=== PATIENT | male | born 1930 | race Caucasian/White ===

== ENCOUNTER 2017-08-01 22:54 | Inpatient (IN) ==
[2017-08-01] MEDS ORDERED: 0.9 % Sodium Chloride 1,000 ML IVC ONE (23:56)
--- NOTE | 2017-08-02 00:07 | Emergency Department Note ---
Disposition Clinical Impression: Atrial fibrillation with RVR, Thrombocytopenia Fever Qualifiers: Fever type: unspecified Qualified Code(s): R50.9 - Fever, unspecified UTI (urinary tract infection) Qualifiers: Urinary tract infection type: site unspecified Hematuria presence: with hematuria Qualified Code(s): N39.0 - Urinary tract infection, site not specified ; R31.9 - Hematuria, unspecified; R31.9 - Hematuria, unspecified Disposition: Admitted As Inpatient Condition: Fair Referrals: Miguel Ayala MD [Primary Care Provider] - Forms: ED Satisfaction Letter Time of Disposition: 04:24 Fever HPI - General Chief Complaint: ED Fever Stated Complaint: Fever Time Seen by Provider: 08/01/17 23:44 Nursing Notes Reviewed: Yes Vital Signs Reviewed: Yes - History of Present Illness HPI Narrative: Patient states 87-year-old male complains of onset of fever and weakness today. Patient has a recent history of bladder cancer and surgery. Patient's had 3 admissions to hospital at [facility] in [facility]. Patient spends the winter in [place]. Patient had a UTI and hematuria which led to a bladder scope was identified a cancer and bladder. Patient was then admitted for VRE infection of the urine. Patient's daughter at bedside states the patient had a fever although 101 within the past 2 hours. She also states patient complained of weakness. - Related Data Home Medications Medication Instructions Recorded Confirmed Aspirin [Lo-Dose Aspirin EC] 81 mg PO DAILY 08/02/17 08/02/17 Calcium Carbonate [Calcium] 1,200 mg PO DAILY 08/02/17 08/02/17 Diltiazem HCl [Diltiazem ER] 120 mg PO DAILY 08/02/17 08/02/17 Finasteride [Proscar] 5 mg PO DAILY 08/02/17 08/02/17 Lutein Extract/Zeaxanthin Ext 1 cap PO DAILY 08/02/17 08/02/17 [Lutein 15 mg Softgel] Rivaroxaban [Xarelto] 20 mg PO DAILY 08/02/17 08/02/17 Allergies Allergy/AdvReac Type Severity Reaction Status Date / Time No Known Allergies Allergy Verified 08/01/17 23:21 All systems ED: reviewed and negative except as stated. Review of Systems: As Per HPI Constitutional: Reports: fever, weakness Fever PMH - Past Medical History Medical history: Reports: atrial fibrillation, cancer, hypertension, kidney stones - Social History Smoking Status: Former smoker Drug use: Reports: none, unknown Physical Exam Vital Signs Temperature 99.0 F 08/01/17 23:14 Pulse Rate 130 08/01/17 23:14 Respiratory Rate 16 08/01/17 23:14 Blood Pressure 122/79 08/01/17 23:14 O2 Sat by Pulse Oximetry 96 08/01/17 23:14 Temperature 99.0 F 08/01/17 23:14 Pulse Rate 130 08/01/17 23:14 Respiratory Rate 16 08/01/17 23:14 Blood Pressure 122/79 08/01/17 23:14 O2 Sat by Pulse Oximetry 96 08/01/17 23:14 Oxygen Delivery Oxygen Delivery Room Air CONSTITUTIONAL: Well-appearing; well-nourished; A&O X 3, in no apparent distress. Patient is nontoxic-appearing. Temperature 99.0 presently. Patient is tachycardic at 1 30 bpm. On the monitor patient's pulses accelerating to 140s. HEAD: Normocephalic; atraumatic EYES: PERRL, no scleral icterus NOSE: The nose is normal in appearance without rhinorrhea NECK: No JVD or distended neck veins RESP: Normal chest excursion with respiration; breath sounds clear and equal bilaterally; no wheezes, rhonchi, or rales CARD: Iregular rhythm, without murmurs, rub or gallop ABD: Non-distended; non-tender, soft, without rigidity, rebound or guarding,no pulsatile mass CHEST: No pain with palpation SKIN: Normal for age and race; warm and dry without diaphoresis ; no apparent lesions EXTREMITIES: Pulses are 2 plus and equal times 4 extremities, no peripheral edema or calf muscle pain - General General appearance: alert Course - Reevaluation(s) Reevaluation #1: X-ray completed Time: 00:12 Reevaluation #2: Patient has sepsis secondary to urosepsis. Patient has used in his urine as well as bacteria. Patient started on levofloxacin, Rocephin, fluconazole all IV. Patient did not become rate controlled after IV normal saline bolus. IV Cardizem bolus 15 mg followed by IV Cardizem drip 5 mg per hour. Time: 00:41 Reevaluation #3: Patient's currently rate controlled under 100bpm Time: 04:14 - Consultations Consultation #1: Dr. Albarran the hospitalist as accepted patient for admission Time: 04:16 Vital Signs Temperature 99.0 F 08/01/17 23:14 Pulse Rate 130 08/01/17 23:14 Respiratory Rate 16 08/01/17 23:14 Blood Pressure 122/79 08/01/17 23:14 O2 Sat by Pulse Oximetry 96 08/01/17 23:14 Temperature 99.0 F 08/01/17 23:14 Pulse Rate 121 08/02/17 03:00 Respiratory Rate 18 08/02/17 03:00 Blood Pressure 124/85 08/02/17 03:00 O2 Sat by Pulse Oximetry 97 08/02/17 03:00 Oxygen Delivery Oxygen Delivery Room Air Fever - MDM Narrative Medical decision making narrative: Patient presents with A. fib RVR and recent history of fever of 101. Which raises concern for possible sepsis given patient's recent history of infections and bladder cancer. Patient's labs show the patient has an elevated WBC of 11.5, patient is anemic with a hemoglobin of 8.4 and hematocrit of 26.3. Patient is thrombocytopenic platelet count 87. Lactic acidemia 2.9, elevated troponin 0.4 most likely from A. fib RVR. Patient currently has no chest pain and otherwise looks Healthy. Patient is on several toe for his A. fib. Chest x-ray was negative for any cardiopulmonary abnormalities. Urinalysis positive for bacteria and yeast make patient positive for urosepsis. Appropriate antibiotics per sepsis protocol ordered 750 mg levofloxacin, 2 g of Rocephin IV, Diflucan ordered as well. Patient's A. fib is been placed under rate control with total of 25 mg bolus of diltiazem followed by a 5 mg per hour drip. Patient is receiving IV normal saline and is currently received 2 L so far, patient will receive a third liter. Patient understands and agrees to treatment plan for admission. Dr. Albarran the hospitalist as accepted patient for admission - Lab Data Lab results reviewed: Yes I reviewed the patient's lab results. Lab results narrative: Short CBC 08/02/17 Range/Units 00:27 WBC 11.5 H D (4.3-11.1) K/mcL Hgb 8.4 L (12.9-16.9) g/dL Hct 26.3 L (37.5-50.1) % Plt Count 87 L (140-400) K/mcL Neutrophils # 9.0 H (1.6-8.9) K/mcL BMP 08/02/17 Range/Units 00:27 Sodium 138 (136-145) mEq/L Potassium 3.9 (3.5-5.1) mEq/L Chloride 107 (98-107) mEq/L Carbon Dioxide 22 L (23-29) mEq/L BUN 18 (8-23) mg/dL Creatinine 0.96 (0.70-1.30) mg/dL Glucose 119 H (70-105) mg/dL Calcium 9.0 (8.6-10.3) mg/dL Cardiac Enzymes 08/02/17 Range/Units 00:27 Troponin I 0.04 H* (< 0.04) ng/mL Urine 08/02/17 Range/Units 01:02 Urine Color Yellow (Yellow) Urine Clarity Cloudy A (Clear) Urine pH 5.5 (5.0-8.0) pH Units Ur Specific [place] 1.024 (1.010-1.025) Urine Protein 30 H (Neg-Trace) mg/dL Urine Glucose (UA) Normal (Normal) mg/dL Result diagrams: 08/02/17 00:27 08/02/17 00:27 Lab Results 08/02/17 08/02/17 08/02/17 Range/Units 00:27 00:27 00:27 WBC 11.5 H D (4.3-11.1) K/mcL RBC 2.98 L (4.19-5.50) M/mcL Hgb 8.4 L (12.9-16.9) g/dL Hct 26.3 L (37.5-50.1) % MCV 88.3 (83.0-100.0) fL MCH 28.2 (28.0-33.3) pg MCHC 31.9 (31.6-35.5) g/dL RDW 15.4 H (11.5-14.5) % Plt Count 87 L (140-400) K/mcL MPV 11.0 (9.4-12.4) fL Immature Gran % 0.5 (0-4) % Seg Neutrophils % 78.6 % Lymphocytes % 9.0 % Monocytes % 11.1 % Eosinophils % 0.5 % Basophils % 0.3 % Neutrophils # 9.0 H (1.6-8.9) K/mcL Lymphocytes # 1.0 (0.6-4.6) K/mcL Monocytes # 1.3 (0.0-1.3) K/mcL Eosinophils # 0.1 (0.0-0.6) K/mcL Basophils # 0.0 (0.0-0.2) K/mcL Nucleated RBCs/100 WBC 0.7 H (0) /100 WBC Immature Plt Fraction 4.7 (1.1-6.1) % Sodium 138 (136-145) mEq/L Potassium 3.9 (3.5-5.1) mEq/L Chloride 107 (98-107) mEq/L Carbon Dioxide 22 L (23-29) mEq/L BUN 18 (8-23) mg/dL Creatinine 0.96 (0.70-1.30) mg/dL Est GFR ( Amer) > 60 (> 60) Est GFR (Non-Af Amer) > 60 (> 60) BUN/Creatinine Ratio 19 (6-26) Glucose 119 H (70-105) mg/dL Calculated Osmolality 289 (280-300) Lactic Acid 2.9 H (0.5-2.2) mmol/L Calcium 9.0 (8.6-10.3) mg/dL Troponin I 0.04 H* (< 0.04) ng/mL Urine Color (Yellow) Urine Clarity (Clear) Urine pH (5.0-8.0) pH Units Ur Specific [place] (1.010-1.025) Urine Protein (Neg-Trace) mg/dL Urine Glucose (UA) (Normal) mg/dL Urine Ketones (Negative) mg/dL Urine Blood (Negative) Urine Nitrite (Negative) Urine Bilirubin (Negative) Urine Urobilinogen (Normal) mg/dL Ur Leukocyte Esterase (Negative) Urine Microscopic RBC (0-3) per hpf Urine Microscopic WBC (0-3) per hpf Ur Squamous Epith Cells (None-Few) per lpf Urine Bacteria (None-Few) per hpf Hyaline Casts (None-Few) per lpf Urine Yeast (None Seen) per hpf 08/02/17 Range/Units 01:02 WBC (4.3-11.1) K/mcL RBC (4.19-5.50) M/mcL Hgb (12.9-16.9) g/dL Hct (37.5-50.1) % MCV (83.0-100.0) fL MCH (28.0-33.3) pg MCHC (31.6-35.5) g/dL RDW (11.5-14.5) % Plt Count (140-400) K/mcL MPV (9.4-12.4) fL Immature Gran % (0-4) % Seg Neutrophils % % Lymphocytes % % Monocytes % % Eosinophils % % Basophils % % Neutrophils # (1.6-8.9) K/mcL Lymphocytes # (0.6-4.6) K/mcL Monocytes # (0.0-1.3) K/mcL Eosinophils # (0.0-0.6) K/mcL Basophils # (0.0-0.2) K/mcL Nucleated RBCs/100 WBC (0) /100 WBC Immature Plt Fraction (1.1-6.1) % Sodium (136-145) mEq/L Potassium (3.5-5.1) mEq/L Chloride (98-107) mEq/L Carbon Dioxide (23-29) mEq/L BUN (8-23) mg/dL Creatinine (0.70-1.30) mg/dL Est GFR ( Amer) (> 60) Est GFR (Non-Af Amer) (> 60) BUN/Creatinine Ratio (6-26) Glucose (70-105) mg/dL Calculated Osmolality (280-300) Lactic Acid (0.5-2.2) mmol/L Calcium (8.6-10.3) mg/dL Troponin I (< 0.04) ng/mL Urine Color Yellow (Yellow) Urine Clarity Cloudy A (Clear) Urine pH 5.5 (5.0-8.0) pH Units Ur Specific [place] 1.024 (1.010-1.025) Urine Protein 30 H (Neg-Trace) mg/dL Urine Glucose (UA) Normal (Normal) mg/dL Urine Ketones Negative (Negative) mg/dL Urine Blood Trace H (Negative) Urine Nitrite Negative (Negative) Urine Bilirubin Negative (Negative) Urine Urobilinogen Normal (Normal) mg/dL Ur Leukocyte Esterase Moderate H (Negative) Urine Microscopic RBC 3-5 H (0-3) per hpf Urine Microscopic WBC 50-100 H (0-3) per hpf Ur Squamous Epith Cells Few (None-Few) per lpf Urine Bacteria Few (None-Few) per hpf Hyaline Casts None Seen (None-Few) per lpf Urine Yeast Many H (None Seen) per hpf - Radiology Data Radiology results reviewed: Yes I reviewed the patient's radiology results. Chest X-Ray 08/01/17 23:53 IMPRESSION: No acute cardiopulmonary findings within the limitations of this exam. D/ / Misael Walsh / Misael Walsh Interpreting Provider: Misael Walsh - EKG Data EKG attestation: Yes I reviewed and interpreted this EKG. EKG results narrative: EKG taken 08/02/2017 at 0001 hours shows A. fib RVR at a rate of 1 33 bpm with no acute ST elevations or depressions any leads, no purist widening or QT prolongation. When compared to previous EKG for comparison taken 01/27/2011 baseline morphology is the same
[2017-08-02 00:42] LABS: Basophils % 0.3 %; Eosinophils % 0.5 %; Mean Corpuscular Hemoglobin 28.2 pg (28.0-33.3); Red Cell Distribution Width 15.4 % (11.5-14.5)
[2017-08-02 00:44] LABS: Eosinophils # 0.1 K/mcL (0.0-0.6); Hematocrit 26.3 % (37.5-50.1); Hemoglobin 8.4 g/dL (12.9-16.9); Immature Granulocytes % 0.5 % (0-4); Immature Platelets 4.7 % (1.1-6.1); Mean Corpuscular HGB Conc 31.9 g/dL (31.6-35.5); Mean Corpuscular Volume 88.3 fL (83.0-100.0); Monocytes # 1.3 K/mcL (0.0-1.3); Monocytes % 11.1 %; Nucleated Red Blood Cells 0.7 /100 WBC (0); Platelet Count 87 K/mcL (140-400); Red Blood Count 2.98 M/mcL (4.19-5.50); Segmented Neutrophils % 78.6 %
[2017-08-02 00:59] LABS: BUN/Creatinine Ratio 19 (6-26); Blood Urea Nitrogen 18 mg/dL (8-23); Carbon Dioxide 22 mEq/L (23-29); Chloride 107 mEq/L (98-107); Glucose 119 mg/dL (70-105); Osmolality,Calculated 289 (280-300); Potassium 3.9 mEq/L (3.5-5.1); Sodium 138 mEq/L (136-145); eGFR For African Americans > 60 (> 60); eGFR For Non-African Americans > 60 (> 60)
[2017-08-02 01:03] LABS: Troponin I 0.04 ng/mL (< 0.04)
[2017-08-02 01:14] LABS: Bilirubin,Urine Negative (Negative); Blood,Urine Trace (Negative); Clarity,Urine Cloudy (Clear); Color,Urine Yellow (Yellow); Glucose,Urine (UA) Normal (Normal); Ketones,Urine Negative (Negative); Leukocyte Esterase,Urine Moderate (Negative); Nitrite,Urine Negative (Negative); PH,Urine 5.5 pH Units (5.0-8.0); Protein,Urine 30 mg/dL (Neg-Trace); Specific Gravity,Urine 1.024 (1.010-1.025); Urobilinogen,Urine Normal (Normal)
[2017-08-02 01:15] LABS: Hyaline Casts,Urine None Seen per lpf (None-Few); WBC,Urine 50-100 per hpf (0-3)
[2017-08-02 01:33] LABS: Bacteria,Urine Few per hpf (None-Few); Squamous Epithelial Cell,Urine Few per lpf (None-Few); Yeast,Urine Many per hpf (None Seen)
[2017-08-02] MEDS ORDERED: 0.9 % Sodium Chloride 1,000 ML IVC ONE (02:00)
--- NOTE | 2017-08-02 02:42 | Emergency Department Note ---
Disposition Clinical Impression: Atrial fibrillation with RVR, UTI (urinary tract infection), Thrombocytopenia Fever Qualifiers: Fever type: unspecified Qualified Code(s): R50.9 - Fever, unspecified Disposition: Admitted As Inpatient Condition: Fair General Adult HPI - General Chief complaint: ED Fever Stated complaint: Fever Time Seen by Provider: 08/01/17 23:44 - History of Present Illness Pain Scale: 4 - Related Data Home Medications Medication Instructions Recorded Confirmed Aspirin [Lo-Dose Aspirin EC] 81 mg PO DAILY 08/02/17 08/02/17 Calcium Carbonate [Calcium] 1,200 mg PO DAILY 08/02/17 08/02/17 Diltiazem HCl [Diltiazem ER] 120 mg PO DAILY 08/02/17 08/02/17 Finasteride [Proscar] 5 mg PO DAILY 08/02/17 08/02/17 Lutein Extract/Zeaxanthin Ext 1 cap PO DAILY 08/02/17 08/02/17 [Lutein 15 mg Softgel] Rivaroxaban [Xarelto] 20 mg PO DAILY 08/02/17 08/02/17 Allergies Allergy/AdvReac Type Severity Reaction Status Date / Time No Known Allergies Allergy Verified 08/01/17 23:21 Constitutional: Reports: fever, weakness Past Medical History - Past Medical History Medical history: Reports: atrial fibrillation, cancer, hypertension, kidney stones - Social History Smoking Status: Former smoker Drug use: Reports: none, unknown Physical Exam - General General appearance: alert Course Vital Signs Temperature 99.0 F 08/01/17 23:14 Pulse Rate 130 08/01/17 23:14 Respiratory Rate 16 08/01/17 23:14 Blood Pressure 122/79 08/01/17 23:14 O2 Sat by Pulse Oximetry 96 08/01/17 23:14 Temperature 99.5 F 08/02/17 05:31 Pulse Rate 107 08/02/17 05:31 Respiratory Rate 15 08/02/17 05:31 Blood Pressure 110/60 08/02/17 05:31 O2 Sat by Pulse Oximetry 97 08/02/17 05:31 Oxygen Delivery Oxygen Delivery Room Air Medical Decision Making - Lab Data Result diagrams: 08/02/17 00:27 08/02/17 00:27 Lab Results 08/02/17 08/02/17 08/02/17 Range/Units 00:27 00:27 00:27 WBC 11.5 H D (4.3-11.1) K/mcL RBC 2.98 L (4.19-5.50) M/mcL Hgb 8.4 L (12.9-16.9) g/dL Hct 26.3 L (37.5-50.1) % MCV 88.3 (83.0-100.0) fL MCH 28.2 (28.0-33.3) pg MCHC 31.9 (31.6-35.5) g/dL RDW 15.4 H (11.5-14.5) % Plt Count 87 L (140-400) K/mcL MPV 11.0 (9.4-12.4) fL Immature Gran % 0.5 (0-4) % Seg Neutrophils % 78.6 % Lymphocytes % 9.0 % Monocytes % 11.1 % Eosinophils % 0.5 % Basophils % 0.3 % Neutrophils # 9.0 H (1.6-8.9) K/mcL Lymphocytes # 1.0 (0.6-4.6) K/mcL Monocytes # 1.3 (0.0-1.3) K/mcL Eosinophils # 0.1 (0.0-0.6) K/mcL Basophils # 0.0 (0.0-0.2) K/mcL Nucleated RBCs/100 WBC 0.7 H (0) /100 WBC Immature Plt Fraction 4.7 (1.1-6.1) % Sodium 138 (136-145) mEq/L Potassium 3.9 (3.5-5.1) mEq/L Chloride 107 (98-107) mEq/L Carbon Dioxide 22 L (23-29) mEq/L BUN 18 (8-23) mg/dL Creatinine 0.96 (0.70-1.30) mg/dL Est GFR ( Amer) > 60 (> 60) Est GFR (Non-Af Amer) > 60 (> 60) BUN/Creatinine Ratio 19 (6-26) Glucose 119 H (70-105) mg/dL Calculated Osmolality 289 (280-300) Lactic Acid 2.9 H (0.5-2.2) mmol/L Calcium 9.0 (8.6-10.3) mg/dL Troponin I 0.04 H* (< 0.04) ng/mL Urine Color (Yellow) Urine Clarity (Clear) Urine pH (5.0-8.0) pH Units Ur Specific [place] (1.010-1.025) Urine Protein (Neg-Trace) mg/dL Urine Glucose (UA) (Normal) mg/dL Urine Ketones (Negative) mg/dL Urine Blood (Negative) Urine Nitrite (Negative) Urine Bilirubin (Negative) Urine Urobilinogen (Normal) mg/dL Ur Leukocyte Esterase (Negative) Urine Microscopic RBC (0-3) per hpf Urine Microscopic WBC (0-3) per hpf Ur Squamous Epith Cells (None-Few) per lpf Urine Bacteria (None-Few) per hpf Hyaline Casts (None-Few) per lpf Urine Yeast (None Seen) per hpf 08/02/17 08/02/17 08/02/17 Range/Units 01:02 04:33 04:33 WBC (4.3-11.1) K/mcL RBC (4.19-5.50) M/mcL Hgb (12.9-16.9) g/dL Hct (37.5-50.1) % MCV (83.0-100.0) fL MCH (28.0-33.3) pg MCHC (31.6-35.5) g/dL RDW (11.5-14.5) % Plt Count (140-400) K/mcL MPV (9.4-12.4) fL Immature Gran % (0-4) % Seg Neutrophils % % Lymphocytes % % Monocytes % % Eosinophils % % Basophils % % Neutrophils # (1.6-8.9) K/mcL Lymphocytes # (0.6-4.6) K/mcL Monocytes # (0.0-1.3) K/mcL Eosinophils # (0.0-0.6) K/mcL Basophils # (0.0-0.2) K/mcL Nucleated RBCs/100 WBC (0) /100 WBC Immature Plt Fraction (1.1-6.1) % Sodium (136-145) mEq/L Potassium (3.5-5.1) mEq/L Chloride (98-107) mEq/L Carbon Dioxide (23-29) mEq/L BUN (8-23) mg/dL Creatinine (0.70-1.30) mg/dL Est GFR ( Amer) (> 60) Est GFR (Non-Af Amer) (> 60) BUN/Creatinine Ratio (6-26) Glucose (70-105) mg/dL Calculated Osmolality (280-300) Lactic Acid 2.1 (0.5-2.2) mmol/L Calcium (8.6-10.3) mg/dL Troponin I 0.03 (< 0.04) ng/mL Urine Color Yellow (Yellow) Urine Clarity Cloudy A (Clear) Urine pH 5.5 (5.0-8.0) pH Units Ur Specific [place] 1.024 (1.010-1.025) Urine Protein 30 H (Neg-Trace) mg/dL Urine Glucose (UA) Normal (Normal) mg/dL Urine Ketones Negative (Negative) mg/dL Urine Blood Trace H (Negative) Urine Nitrite Negative (Negative) Urine Bilirubin Negative (Negative) Urine Urobilinogen Normal (Normal) mg/dL Ur Leukocyte Esterase Moderate H (Negative) Urine Microscopic RBC 3-5 H (0-3) per hpf Urine Microscopic WBC 50-100 H (0-3) per hpf Ur Squamous Epith Cells Few (None-Few) per lpf Urine Bacteria Few (None-Few) per hpf Hyaline Casts None Seen (None-Few) per lpf Urine Yeast Many H (None Seen) per hpf Critical Care Time Critical Care Time: Yes Total Critical Care Time: 35 Attestation: Critical care performed: Time is exclusive of separately billable procedures. Time includes: direct patient care, patient reassessment, coordination of patient care, interpretation of data (laboratory data, radiology data, and respiratory data), review of patient's medical records, medical consultation and documentation of patient care. Procedures included in critical care time: Procedures excluded from critical care time: Attestation Statement - Attestation Attestation: I examined this patient and my medical decision-making was reviewed with the Resident Physician. I agree with the documented findings, disposition and treatment plan as described except to the extent set forth below. Patient presents to the using a fever. Patient recently seen and admitted for UTI. He just finished: Nasal lid. Fever was 101 tonight home. He is 99 here. On examination he is in no acute distress without complaint. Abdomen soft lungs clear. Plan. Patient again shows a UTI. Positive freeze. We will start him on Diflucan. Patient he sepsis criteria even though he is in A. fib with RVR causing his tachycardia. His white count is 11. His lactic acid is 2.9. Patient is started on broad-spectrum antibiotic and admitted to medicine.
[2017-08-02] MEDS: Fluconazole 400 MG/200 ML 400 MG/200 ML BAG IVPB SCH ×2 (02:58→05:01)
[2017-08-02] MEDS ORDERED: Levofloxacin 750 MG/150 ML 750 MG/150 ML BAG IVPB SCH (03:00)
[2017-08-02] MEDS ORDERED: cefTRIAXone 2,000 MG in Water for inj. (sterile) 20 ML 20 ML IVP SCH (03:00)
[2017-08-02] MEDS ORDERED: *HR* HYDROcodone/Acet 5/325 mg TABLET PO PRN (04:15)
[2017-08-02] MEDS ORDERED: Ondansetron 4 MG/2 ML VIAL IVP PRN (04:15)
[2017-08-02] MEDS ORDERED: *HR* Promethazine 25 MG/ML VIAL IVP PRN (04:15)
[2017-08-02] MEDS ORDERED: Naloxone 0.4 MG/ML INJ IVP PRN (04:15)
[2017-08-02] MEDS: 0.9 % Sodium Chloride 1,000 ML IVC SCH ×2 (05:37→14:44)
--- NOTE | 2017-08-02 06:24 | Internal Med History&Physical ---
Date of Encounter: 08/02/17 Time of Encounter: 05:00 Internal Medicine - H&P: HPI Chief complaint: Fever Admitted From: Emergency Dept Plans for Post Hospital Care: Home History of present illness: Mr. Fan is a 87 year old male with known PMH of Chronic Afib on Xarelto for anticoag, HTN, HLD and Renal calculi pt who recently diagnosed with bladder tumor possible cancer s/p tumor resection done in May 2017 @ [place], [place] later who developed post hemorrhagic anemia and sepsis with UTI with MRSA. Pt was discharged him on Zyvox abx for 10 days which he finished the course 3-4 days ago. Now he was brought into ER by family c/o he started having fever, chills and palpitations. He happened to in A fib with RVR. His T max at home 101. He denied any CP / SOB. He is alert, awake and O x 3. Talked to pt's at bed side got all the history what happened at [place], [place]. Apparently pt was hospitalized there 3 times in last 2 months. Past Med Surg Social Fam HX - Past Medical History Medical history: atrial fibrillation, cancer, hypertension, kidney stones - Past Surgical History Surgical History: appendectomy, cholecystectomy, pacemaker - Social History Smoking Status: Former smoker Alcohol use: none Drug use: none - Family History Father Living Status: Hx Family Cancer: Yes (Lung Ca.) Internal Medicine - H&P: Meds Aspirin [Lo-Dose Aspirin EC] 81 mg PO DAILY 08/02/17 [History] Calcium Carbonate [Calcium] 1,200 mg PO DAILY 08/02/17 [History] Diltiazem HCl [Diltiazem ER] 120 mg PO DAILY 08/02/17 [History] Finasteride [Proscar] 5 mg PO DAILY 08/02/17 [History] Lutein Extract/Zeaxanthin Ext [Lutein 15 mg Softgel] 1 cap PO DAILY 08/02/17 [ History] Rivaroxaban [Xarelto] 20 mg PO DAILY 08/02/17 [History] 3 Allergy/AdvReac Type Severity Reaction Status Date / Time No Known Allergies Allergy Verified 08/01/17 23:21 All Systems PM: A 10-system review of systems was performed and is negative for pertinent findings except as documented above in the HPI. Review of systems: All the systems are reviewed everything is benign except the systems and symptoms I mentioned in the history of present illness - Constitutional Vitals: Temp Pulse Resp BP Pulse Ox 99.5 F 107 15 110/60 97 08/02/17 05:31 08/02/17 05:31 08/02/17 05:31 08/02/17 05:31 08/02/17 05:31 General appearance: Present: cooperative, A&O X 3, no acute distress, answers questions appropriately - Head Head exam: Present: atraumatic, normal inspection - Neck Neck exam general surgery: Present: supple - Respiratory Respiratory exam: Present: decreased breath sounds. Absent: rales, respiratory distress, rhonchi, wheezes - Cardiovascular Cardiovascular exam: Present: irregular rhythm, +S1, +S2, tachycardia. Absent: systolic murmur - GI/Abdominal GI/Abdominal exam: Present: normal bowel sounds, soft. Absent: rebound, rigid, tenderness - Extremities Exam Extremities exam: Absent: calf tenderness, pedal edema, tenderness - Back Exam Back exam: Absent: CVA tenderness (L), CVA tenderness (R) - Neurological Exam Neurological exam: Present: alert, oriented X3 - Psychiatric Psychiatric exam: Present: normal affect, normal mood - Skin Skin exam: Absent: rash Internal Med - H&P Results - Labs CBC & Chem 7: 08/02/17 00:27 08/02/17 00:27 - Assessment and plan (1) Sepsis Current Visit: Yes Status: Acute Assessment and plan: Admit the pt into Tele He does meet sepsis cirteria with elevated LA, WBC , Tachycardia and source of inf as UTI started on empirical abx Rocephin + Vancomycin since he does have MRSA UTI recently Blood cx drawn in the ER IV hydration Qualifiers: Qualified Code(s): A41.9 - Sepsis, unspecified organism (2) UTI (urinary tract infection) Current Visit: Yes Status: Acute Assessment and plan: UA - showed few bacteria, yeast already give Fluconazole 400mg in the ER cont Rocephin + vancomcyin will give micafungin Qualifiers: Urinary tract infection type: site unspecified Hematuria presence: with hematuria Qualified Code(s): N39.0 - Urinary tract infection, site not specified; R31.9 - Hematuria, unspecified; R31.9 - Hematuria, unspecified (3) Atrial fibrillation with RVR Current Visit: Yes Status: Acute Assessment and plan: Due to Sepsis cont IV hydration started on Cardizem gtt.. try to wean him off the Cardizem gtt on Xarleto for anti coag (4) MRSA (methicillin resistant Staphylococcus aureus) infection Current Visit: Yes Status: Acute (5) HTN (hypertension) Current Visit: Yes Status: Acute Assessment and plan: stable with home meds Qualifiers: Hypertension type: essential hypertension Qualified Code(s): I10 - Essential (primary) hypertension (6) Bladder cancer Current Visit: Yes Status: Acute Assessment and plan: Recently diagnosed in [place] s/p bladder tumor resection will consult our heme Onc in AM , since pt would like to establish care with our [facility] here Qualifiers: Bladder location: unspecified site Qualified Code(s): C67.9 - Malignant neoplasm of bladder, unspecified (7) Thrombocytopenia Current Visit: Yes Status: Acute Assessment and plan: Due to sepsis + bladder cancer cont close monitoring - Time Spent With Patient Total time spent is greater than 50% in coordination of care (as documented) at patient's floor/unit and/or counseling patient:
[2017-08-02] MEDS: Finasteride 5 MG TABLET PO SCH (08:27)
[2017-08-02] MEDS: Aspirin Enteric Coated 81 MG Tablet PO SCH (08:27)
[2017-08-02] MEDS: LUTEIN PO SCH (08:54)
[2017-08-02] MEDS ORDERED: *HR* Rivaroxaban 10 MG TABLET PO SCH (09:00)
[2017-08-02] MEDS ORDERED: Diltiazem CD (24hr) 120 MG CAPSULE PO SCH (09:00)
--- NOTE | 2017-08-02 12:23 | Event Note ---
Date of Encounter: 08/02/17 Time of Encounter: 10:25 Patient is feeling better at this time. Mild abdominal discomfort. Passing flatus. Has not had a bowel movement yet. NG tube connected to low intermittent suction draining bilious fluid.
--- NOTE | 2017-08-02 12:29 | Event Note ---
Date of Encounter: 08/02/17 Time of Encounter: 10:40 Patient is feeling better at this time. Denies any dizziness or lightheadedness. No abdominal pain. No fever reported. Concerned that he did not receive Xarelto last night. Heart rate is improving. Denies any palpitations. We will wean down Cardizem drip. Transition to oral Cardizem. Placed on Xarelto. Continue current antibiotics. Cultures are negative. Continue Diflucan for yeast presenting urine with underlying bladder cancer.
[2017-08-02 13:44] LABS: Acinetobacter baumannii by PCR Not Detected (Not Detect); Candida albicans by PCR Not Detected (Not Detect); Candida glabrata by PCR Not Detected (Not Detect); Candida krusei by PCR Not Detected (Not Detect); Candida parapsilosis by PCR Not Detected (Not Detect); Candida tropicalis by PCR Not Detected (Not Detect); Enterococcus by PCR ***DETECTED*** (Not Detect); Escherichia coli by PCR Not Detected (Not Detect); Klebsiella oxytoca by PCR Not Detected (Not Detect); Klebsiella pneumoniae by PCR Not Detected (Not Detect); Pseudomonas aeruginosa by PCR Not Detected (Not Detect); Serratia marcescens by PCR Not Detected (Not Detect); Staphylococcus aureus by PCR Not Detected (Not Detect); Streptococcus agalactiae(B)PCR Not Detected (Not Detect); Streptococcus by PCR Not Detected (Not Detect); Streptococcus pneumoniae PCR Not Detected (Not Detect); Streptococcus pyogenes (A) PCR Not Detected (Not Detect); vanA/B Vancomycin-Resist Genes Not Detected (Not Detect)
[2017-08-03] MEDS ORDERED: 0.9 % Sodium Chloride 1,000 ML IVC SCH (04:00)
[2017-08-03] MEDS: Acetaminophen 325 MG TABLET PO PRN (04:07)
[2017-08-03] MEDS ORDERED: 0.9 % Sodium Chloride 1,000 ML IVC ONE (04:51)
--- NOTE | 2017-08-03 05:05 | Event Note ---
Date of Encounter: 08/03/17 Time of Encounter: 05:03 Called about patient with temp 102.3. Tachycardic into 140s. Went to evaluate and patient is not in distress. Rhythm on tele seems to be afib with RVR with rates anywhere from 130-150s. Systolic BP in 140s. Will give Tylenol. 1L bolus. 10 mg IV push cardizem. Patient taken off cardizem drip earlier today. Will follow up on patient later this morning and put on Cardizem drip again if needed. Patient has + Blood cx for Enterococcus and is on Vancomycin
[2017-08-03 05:52] LABS: Hemoglobin 6.9 g/dL (12.9-16.9)
[2017-08-03 05:53] LABS: Basophils % 0.2 %; Eosinophils % 0.3 %; Hematocrit 21.3 % (37.5-50.1); Immature Granulocytes % 0.6 % (0-4); Immature Platelets 7.4 % (1.1-6.1); Lymphocytes # 1.4 K/mcL (0.6-4.6); Lymphocytes % 12.5 %; Mean Corpuscular HGB Conc 32.4 g/dL (31.6-35.5); Mean Corpuscular Hemoglobin 28.2 pg (28.0-33.3); Mean Corpuscular Volume 86.9 fL (83.0-100.0); Mean Platelet Volume 11.6 fL (9.4-12.4); Monocytes # 1.3 K/mcL (0.0-1.3); Monocytes % 12.2 %; Neutrophils # 8.2 K/mcL (1.6-8.9); Nucleated Red Blood Cells 0.2 /100 WBC (0); Red Blood Count 2.45 M/mcL (4.19-5.50); Red Cell Distribution Width 15.9 % (11.5-14.5); Segmented Neutrophils % 74.2 %
[2017-08-03 06:04] LABS: Platelet Count 85 K/mcL (140-400)
[2017-08-03 06:18] LABS: BUN/Creatinine Ratio 15 (6-26); Blood Urea Nitrogen 14 mg/dL (8-23); Calcium 8.1 mg/dL (8.6-10.3); Carbon Dioxide 18 mEq/L (23-29); Chloride 110 mEq/L (98-107); Chol/HDL Ratio 2.2 (0-4.9); Cholesterol 87 mg/dL (< 200); Glucose 158 mg/dL (70-105); HDL Cholesterol 40 mg/dL (40-59); LDL Cholesterol,Calculated 31 mg/dL (0-99); Magnesium 1.5 mg/dL (1.6-2.6); Osmolality,Calculated 288 (280-300); Potassium 3.5 mEq/L (3.5-5.1); Sodium 137 mEq/L (136-145); Triglycerides 80 mg/dL (< 150); eGFR For African Americans > 60 (> 60); eGFR For Non-African Americans > 60 (> 60)
[2017-08-03] MEDS: Finasteride 5 MG TABLET PO SCH (08:37)
[2017-08-03] MEDS: Aspirin Enteric Coated 81 MG Tablet PO SCH (08:37)
[2017-08-03] MEDS: LUTEIN PO SCH (08:38)
[2017-08-03] MEDS: Diltiazem CD (24hr) 180 MG CAPSULE PO SCH (08:49)
[2017-08-03] MEDS ORDERED: cefTRIAXone 1,000 MG in Water for inj. (sterile) 20 ML 10 ML IVP SCH (09:00)
[2017-08-03] MEDS: Fluconazole 200 MG/100 ML 200 MG/100 ML BAG IVPB SCH (10:34)
--- NOTE | 2017-08-03 10:39 | Internal Med Progress Note ---
Date of Encounter: 08/03/17 Time of Encounter: 10:37 - Assessment and plan (1) Sepsis Current Visit: Yes Status: Acute Assessment and plan: Patient with sepsis with enterococcus. Awaiting sensitivity results. Patient was receiving vancomycin. However he developed fever last night. Will place him on intravenous Zyvox instead. Still believe he has urinary source of infection. However patient did have TAVR in January 2017 and is at risk for endocarditis. We will obtain TTE. If patient continues to have fever, he will need LUIGI. We will consult infectious disease to help manage this patient Qualifiers: Sepsis type: sepsis due to unspecified organism Qualified Code(s): A41.9 - Sepsis, unspecified organism (2) Anemia Current Visit: Yes Status: Suspected Assessment and plan: Hemoglobin 6.9 today. Patient's reports that he has had episodes of epistaxis over the past 4 days. No hematuria. Patient is on Xarelto. Given the sudden decline given the decline in hemoglobin, we will stop Xarelto for now. Patient takes Xarelto for A. fib and prior history of venous thromboembolism. Will monitor blood counts. We will consider transfusion if hemoglobin remains less than 7 at next blood draw. Qualifiers: Other causes of anemia: acute posthemorrhagic Qualified Code(s): D62 - Acute posthemorrhagic anemia (3) Atrial fibrillation with RVR Current Visit: Yes Status: Acute Assessment and plan: Patient remains in A. fib. Rate controlled at this time. We will increase Cardizem dosage to 180 mg. Holding Xarelto due to anemia (4) UTI (urinary tract infection) Current Visit: Yes Status: Acute Assessment and plan: With enterococcus and yeast. On Zyvox and On Diflucan. Qualifiers: Urinary tract infection type: site unspecified Hematuria presence: with hematuria Qualified Code(s): N39.0 - Urinary tract infection, site not specified; R31.9 - Hematuria, unspecified; R31.9 - Hematuria, unspecified (5) Thrombocytopenia Current Visit: Yes Status: Acute Assessment and plan: Platelet counts at 85. Stable (6) MRSA (methicillin resistant Staphylococcus aureus) infection Current Visit: Yes Status: Acute Assessment and plan: Previously MRSA bacteremia and cystitis. Completed treatment with Zyvox previously. Continue to follow blood cultures. Blood cultures currently are negative for (7) HTN (hypertension) Current Visit: Yes Status: Chronic Assessment and plan: Blood pressure is well controlled. Continue Cardizem Qualifiers: Hypertension type: essential hypertension Qualified Code(s): I10 - Essential (primary) hypertension (8) Bladder cancer Current Visit: Yes Status: Acute Assessment and plan: With recurrent bouts of infection. Follow up with urology in cancer center after discharge. Qualifiers: Bladder location: unspecified site Qualified Code(s): C67.9 - Malignant neoplasm of bladder, unspecified - Time Spent With Patient Total time spent is greater than 50% in coordination of care (as documented) at patient's floor/unit and/or counseling patient: - Subjective Interval history: Patient developed fever last night and went into rapid A. fib again. Received IV Cardizem and since then his heart rate has improved. Denies any chest pain or palpitations. Denies any abdominal pain or dysuria. I did discuss his case with his son who is a general surgeon and was told that patient did have enterococcus and MRSA sepsis in [place]. He was treated for both of this and underwent transthoracic echocardiogram dated to rule out any vegetations. He was not found to have any vegetations then. - Constitutional Vitals: Temp Pulse Resp BP Pulse Ox 98.5 F 105 20 126/73 92 08/03/17 07:41 08/03/17 07:41 08/03/17 07:41 08/03/17 07:41 08/03/17 07:41 General appearance: Present: cooperative, A&O X 3, no acute distress, answers questions appropriately - Neck Neck exam general surgery: Present: supple, trachea midline. Absent: lymphadenopathy - Respiratory Respiratory exam: Present: CTAB. Absent: accessory muscle use, rales, rhonchi, wheezes - Cardiovascular Cardiovascular exam: Present: irregular rhythm, +S1, +S2, systolic murmur. Absent: diastolic murmur, gallop, rubs - GI/Abdominal GI/Abdominal exam: Present: normal bowel sounds, soft, no peritoneal signs. Absent: distended, tenderness - Extremities Exam Extremities exam: Present: warm, radial pulses palpable and symmetrical. Absent : calf tenderness, cyanotic, pedal edema - Neurological Exam Neurological exam: Present: alert, oriented X3, no focal deficits. Absent: facial droop, speech deficit - Skin Skin exam: Present: dry, intact Internal Medicine: Result - Labs CBC & Chem 7: 08/03/17 05:09 08/03/17 05:09 Labs: Short CBC 08/03/17 Range/Units 05:09 WBC 11.0 (4.3-11.1) K/mcL Hgb 6.9 L D (12.9-16.9) g/dL Hct 21.3 L (37.5-50.1) % Plt Count 85 L (140-400) K/mcL Neutrophils # 8.2 (1.6-8.9) K/mcL BMP 08/03/17 05:09 Sodium 137 Potassium 3.5 Chloride 110 H Carbon Dioxide 18 L BUN 14 Creatinine 0.95 Glucose 158 H Calcium 8.1 L Consult Discharge Plan - Plan Referrals: Miguel Ayala MD [Primary Care Provider] -
[2017-08-03 11:19] LABS: Hematocrit 22.5 % (37.5-50.1); Hemoglobin 7.1 g/dL (12.9-16.9)
--- NOTE | 2017-08-03 12:22 | Infectious Disease Consult ---
Date of Encounter: 08/03/17 Time of Encounter: 12:19 Assessment and Plan (1) Sepsis Status: Acute Assessment and plan: The patient had two SIRS criteria on admission. Likely secondary to bacteremia and UTI. Improved. WBC normal. He had fever and tachycardia overnight. Blood cultures drawn 08/02/17 are positive 2/2 sets for Enterococcus per PCR. Qualifiers: Sepsis type: sepsis due to unspecified organism Qualified Code(s): A41.9 - Sepsis, unspecified organism (2) Bacteremia Status: Acute Assessment and plan: Causative organism: Enteroccocus per PCR, Gita/B gene negative. Source: Likely the urine. Blood cultures drawn 08/02/17 are positive 2/2 sets. Complicated due to the presence of pacemaker and bilateral knee hardware. No endocarditis stigmata noted. The patient has one major and one minor Modified Nur's Criteria. TTE done during previous hospitalization in June was negative, but at that time the patient did not have bacteremia. Repeat blood cultures x 2 sets drawn this morning. Check rheumatoid factor. Get TTE. If negative, the patient will need a LUIGI. The patient currently has thrombocytopenia, so we will need to wait for his platelet count to recover before he will be able to undergo a LUIGI. Discontinue Rocephin and Zyvox. Start Vancomycin IV. Pharmacy to dose. Goal trough ~15. Await cultures and de-escalate if/when able based on susceptibilities. Duration of treatment depends on the clinical picture, but likely 4 weeks. Consult hospice social worker to assist with discharge planning. Monitor renal function and for drug toxicity and dose-adjust antibiotics. Avoid insertion of central venous access until blood cultures are negative x 48 hours. (3) UTI (urinary tract infection) Status: Acute Assessment and plan: Causative organism unclear. Urinalysis positive for pyuria and yeast, but no culture was sent. Will request micro run culture off urine that they have in the lab if they are able. If not, will have nursing re-collect. Continue antibiotics as above. Continue fluconazole 200mg IV daily. Cr Cl ~52. Check baseline LFTs. Add to AM labs. Duration of treatment depends on the clinical picture. Monitor renal and liver function and for drug toxicity and dose-adjust antibiotics. Qualifiers: Urinary tract infection type: site unspecified Hematuria presence: with hematuria Qualified Code(s): N39.0 - Urinary tract infection, site not specified; R31.9 - Hematuria, unspecified; R31.9 - Hematuria, unspecified (4) Thrombocytopenia Status: Acute Assessment and plan: Likely multifactorial: sepsis + recent use of linezolid. No acute bleeding noted on exam. Stop linezolid as above. Continue to trend. Management per the primary team. (5) Atrial fibrillation with RVR Status: Acute Assessment and plan: Chronic A-fib with RVR likely secondary to sepsis. Rate-controlled. Management per the primary team. (6) Anemia Status: Suspected Assessment and plan: Hgb down to 7.1. No acute bleeding noted on exam. Continue to trend. Further workup and management per the primary team. Qualifiers: Anemia type: other cause Other causes of anemia: other cause, not classified Qualified Code(s): D64.89 - Other specified anemias (7) History of MRSA infection Status: Acute Assessment and plan: 07/12/17 urine culture positive for MRSA at OSH. Treated with course of PO linezolid. MRSA screen negative. Will request records from OSH. (8) Pacemaker Status: Acute Assessment and plan: Status post pacemaker placement in 2016. Insertion site well-healed without evidence of infection. Will need TTE. If negative, may need to consider LUIGI once the patient's platelet counts improve. (9) Status post transcatheter aortic valve replacement Status: Acute Assessment and plan: January 2017. Bioprosthetic valve. (10) HTN (hypertension) Status: Chronic Qualifiers: Hypertension type: essential hypertension Qualified Code(s): I10 - Essential (primary) hypertension (11) Bladder cancer Status: Acute Assessment and plan: Diagnosed in May 2017. Status post cystoscopy with resection of the bladder tumor. Per patient's , they were able to resect the entire tumor and patient needs repeat imaging in three months. No chemo/radiation planned at this point. Qualifiers: Bladder location: unspecified site Qualified Code(s): C67.9 - Malignant neoplasm of bladder, unspecified Infectious Disease HPI - Data of Consult Patient: new to practice Consult date: 08/03/17 Requesting Physician: Toma Shah MD Primary Care Provider: Miguel Ayala MD - Consult Narrative Reason for consult: Enterococcus bacteremia History of present illness: Mr. Fan is a 87 year old male with a past medical history of A. fib on several toe, hypertension, hyperlipidemia, recently diagnosed with bladder cancer status post tumor resection followed by urosepsis and posthemorrhagic anemia, remote history of pacemaker placement and TAVR in 2017. The patient was admitted to the hospital August 02 for UTI, A. fib RVR, and thrombocytopenia. We are consulted August 03 for further recommendations for enterococcus bacteremia. Briefly, the patient's 87-year-old male with past medical history as stated above. Patient apparently spends his parks in [place] and while there was noted to have hematuria solved on its own back in March. He states he had another episode early in May. He then became very weak and fell and cut his head and his hand and presented to the emergency department. While trying to be why the patient became weak and fell they did a CT of his abdomen that noted a tumor in his bladder. He was evaluated by urology was taken for cystoscopy and had resection of the bladder tumor that was positive for cancer, but the family states that the urologist was confident that he was able to resect all of the bladder in the patient was to follow-up in 3 months after surgery. The patient was discharged home to complete a course of oral Levaquin , but about 3 days after discharge she began having gross amounts of bloody urine and blood back to the emergency department and was readmitted to the hospital. He had bladder irrigations and was given Macrobid and discharged back home. He then began to have recurrence of symptoms and went back to the hospital and was readmitted and diagnosed with MRSA in his urine. We did talk to the micro-lab at the hospital in [place] and they state that the patient also had blood cultures that were negative. Per the family, the patient had a transthoracic echocardiogram that did not show any valvular vegetations. He completed the 10 day course of oral and Nasalide and flew back home and finish the course of antibiotics last Thursday. On Thursday, he spiked fever 102 was generally feeling very weak and ill and having chills and rigors. Upon presentation to the ER, the patient was tachycardic and in A. fib RVR. Laboratory studies revealed a mild leukocytosis and lactic acidosis. Urinalysis was positive for 50-100 white cells, few epithelial cells, many yeast , and few bacteria. The specimen was not sent for culture. He did have blood cultures that were obtained 2 sets are positive for enterococcus, but it does not appear to be VRE based on the PCR results. He did receive a course of Levaquin, Rocephin, and fluconazole the emergency department. He was started on a Cardizem drip which helped control his heart rate. He was admitted to the hospital for further evaluation. Since admission, the patient's white blood cell count has normalized. His blood cultures came back positive as previously mentioned. Overnight, he spiked a fever with a MAXIMUM TEMPERATURE of 102.3 and became tachycardic again. Repeat blood cultures were drawn this morning. He has a MRSA nasal screen that is pending. His antibiotics have been transitioned to Zyvox, Rocephin, and fluconazole. We have been asked to evaluate and make further recommendations. During my exam today, the patient states that overall he feels better. He reports fevers, chills, and rigors on the day prior to admission. He denies any headache, neck pain, congestion, earache, or sore throat. He denies chest pain, shortness of breath, or cough. Denies nausea, vomiting, or diarrhea. States his appetite has been poor and he has lost about 30 lbs in the past two months. He denies abdominal pain. He does report urinary frequency, but denies hematuria or dysuria. He denies flank or back pain. He denies pain in his extremities. He denies oral thrush or skin lesions. He states his pacemaker was put in late last year and he didn't have any trouble with it after insertion. The patient lives at home with his in [place], [place] and visits [place] every winter. He also traveled to [place] in January for his TAVR. He denies any tobacco, alcohol, or illicit drug use. CC: Toma Shah MD Past Med Surg Social Fam HX - Past Medical History Attestation: Yes The following information was validated with the patient. Source: patient, old records reviewed, nursing notes reviewed Medical history: atrial fibrillation (Xarelto), cancer (Bladder cancer s/p resection 05/2017), CVA, hypertension, kidney stones, pulmonary embolus, valvular heart disease (S/P TAVR 2016), other (Cardiac arrhythmia s/p pacemaker 2016) Psychiatric history: no psych history - Past Surgical History Surgical History: appendectomy, cholecystectomy, heart valve replacement (TAVR 01/2017), pacemaker (2017) - Social History Smoking Status: Former smoker Alcohol use: none Drug use: none Occupational status: retired Current living situation: Home, With Family Activity Level: Independent ambulation Recent Out of Country Travel Within the Last 8 Weeks: No Exposure or Possible Exposure to Illness During Travel: No - Family History Father Living Status: Hx Family Cancer: Yes (Lung Ca.) Infectious Disease-CN:Meds Aspirin [Lo-Dose Aspirin EC] 81 mg PO DAILY 08/02/17 [History] Calcium Carbonate [Calcium] 1,200 mg PO DAILY 08/02/17 [History] Cetirizine HCl [Cetirizine HCl] 10 mg PO DAILY 08/02/17 [History] Diltiazem HCl [Diltiazem ER] 120 mg PO DAILY 08/02/17 [History] Finasteride [Proscar] 5 mg PO DAILY 08/02/17 [History] Lutein Extract/Zeaxanthin Ext [Lutein 15 mg Softgel] 1 cap PO DAILY 08/02/17 [ History] Olmesartan/Hydrochlorothiazide [Olmesartan-Hctz 20-12.5 mg Tab] 1 tab PO DAILY 08/02/17 [History] Rivaroxaban [Xarelto] 20 mg PO DAILY 08/02/17 [History] Simvastatin [Zocor] 10 mg PO DAILY 08/02/17 [History] Tamsulosin [Flomax] 0.4 mg PO DAILY 08/02/17 [History] 3 Allergy/AdvReac Type Severity Reaction Status Date / Time No Known Allergies Allergy Verified 08/01/17 23:21 All systems: reviewed and no additional remarkable complaints except as stated Exam - Constitutional Vitals: Temp Pulse Resp BP Pulse Ox 98.5 F 105 20 126/73 92 08/03/17 07:41 08/03/17 07:41 08/03/17 07:41 08/03/17 07:41 08/03/17 07:41 General appearance: average body habitus, cooperative, no acute distress - Head Head exam: Present: atraumatic, normal inspection, normocephalic - Eye Eye exam: Present: EOMI, normal appearance, PERRL Pupils: Present: normal accommodation Additional comments: No subconjunctival hemorrhage noted. - ENT ENT exam: Present: mucous membranes moist - Neck Neck exam: Present: normal inspection - Respiratory Respiratory exam: Present: CTAB. Absent: rales, respiratory distress, rhonchi, wheezes - Cardiovascular Cardiovascular exam: Present: irregular rhythm. Absent: tachycardia - GI/Abdominal GI/Abdominal exam: Present: normal bowel sounds, soft. Absent: distended, tenderness - Extremities Exam Extremities exam: Present: normal inspection, pedal edema (1+ BLE). Absent: joint swelling, tenderness - Back Exam Back exam: Present: normal inspection. Absent: CVA tenderness (L), CVA tenderness (R), paraspinal tenderness, vertebral tenderness - Neurological Exam Neurological exam: Present: alert, oriented X3, no focal deficits - Psychiatric Psychiatric exam: Present: normal affect, normal mood - Skin Skin exam: Present: dry, intact, normal color, warm Additional comments: No endocarditis stigmata noted. Infectious Disease CN: Results - Labs CBC & Chem 7: 08/03/17 10:24 08/03/17 05:09 Serology: Serology 08/02/17 Range/Units 07:00 Nasal Screen MRSA (PCR) Negative (Negative) Consult Discharge Plan - Plan Referrals: Miguel Ayala MD [Primary Care Provider] - - Attending Attestation I examined this patient and my medical decision-making was reviewed with the Resident Physician. I agree with the documented findings, disposition and treatment plan as described except to the extent set forth below. This is an addendum to original report dictated by Alejandra Figueroa CNP, please refer to Kenya muller for full detail. Patient is an 87-year-old gentleman with past medical history mentioned below including history of atrial fibrillation with RVR, history of pulmonary embolism in the past, history of pacemaker placement, history of aortic valve replacement, hypertension and hyperlipidemia on blood thinner who apparently was recently admitted to the hospital in [place] with hematuria. During that hospital stay patient was noted to have some kind of bladder cancer that was surgically resected. Patient did not receive any chemotherapy or radiation therapy. Apparently patient was discharged post op on levofloxacin. Not sure if the patients urine was positive. Patient 5 days post op was readmitted with a fever and was given a course of Macrobid. Patient was admitted again and apparently on July 09 a urine culture was positive for MRSA. I personally called the hospital in [place] and spoke with the microbiology lab. Patient also had a blood culture done on July 12 and it was no growth. Nonetheless patient did have a TTE done and I am not sure what was the rationale was or if they require concerned about endocarditis. Patients MRSA was resistant to tetracycline but was susceptible to Bactrim. Patient was discharged home on a 10 day course of linezolid that he finished on 07/29/2017. On August 01 patient spiked a fever again and was brought into the emergency department. Patient was feeling weak and tired. Patient was also having chills and rigors. Upon presentation to the ER, the patient was tachycardic and in A. fib RVR. Laboratory studies revealed a mild leukocytosis and lactic acidosis. Urinalysis was positive for 50-100 white cells, few epithelial cells, many yeast , and few bacteria. The specimen was not sent for culture. He did have blood cultures that were obtained 2 sets are positive for enterococcus, but it does not appear to be VRE based on the PCR results. He did receive a course of Levaquin, Rocephin, and fluconazole the emergency department. He was started on a Cardizem drip which helped control his heart rate. He was admitted to the hospital for further evaluation. Since admission, the patient's white blood cell count has normalized. His blood cultures came back positive as previously mentioned. Overnight, he spiked a fever with a MAXIMUM TEMPERATURE of 102.3 and became tachycardic again. Repeat blood cultures were drawn this morning. He has a MRSA nasal screen that is pending. His antibiotics have been transitioned to Zyvox, Rocephin, and fluconazole. We have been asked to evaluate and make further recommendations. Assessment and plan: Sepsis secondary to #2 Bacteremia with enterococcus picked up on PCR and blood cultures are 2 out of 2 positive for gram-positive cocci. The PCR though did not pickup Gita/B gene Socrates tract infection Thrombocytopenia History of MRSA UTI Pacemaker Status post bioprosthetic aortic valve replacement DC Zyvox Start vancomycin Monitor labs closely goal vancomycin trough around 15 Will need a LUIGI prior to discharge Might de-escalate to ampicillin if the enterococcus is amp sensitive Repeat urine culture Okay to continue Diflucan since I am not sure if the bladder wall and mucous. Is compromised. If it is because he had surgery and the patients yeast goes into his blood, it will get things very complicated especially that he has a pacemaker and a bioprosthetic valve
[2017-08-03 16:45] LABS: Alanine Aminotransferase 23 Units/L (7-52); Albumin 3.3 g/dL (3.5-5.7); Albumin/Globulin Ratio 1.6 (1.1-2.2); Alkaline Phosphatase 75 Units/L (34-104); Aspartate Amino Transferase 28 Units/L (13-39); Bilirubin,Direct 0.3 mg/dL (0.0-0.2); Bilirubin,Indirect 0.8 mg/dL (0.0-1.2); Bilirubin,Total 1.1 mg/dL (0.3-1.0); Globulin 2.1 g/dL (2.4-3.5); Total Protein 5.4 g/dL (6.4-8.9)
[2017-08-03 18:46] LABS: Hematocrit 21.1 % (37.5-50.1); Hemoglobin 6.9 g/dL (12.9-16.9)
[2017-08-04] MEDS ORDERED: 0.9 % Sodium Chloride 250 ML ONE ×2 (00:03→05:42)
[2017-08-04] MEDS ORDERED: Aminoglycoside Consult 1 EACH MC ONE (08:32)
[2017-08-04 08:39] LABS: Immature Granulocytes % 0.6 % (0-4); Red Cell Distribution Width 15.6 % (11.5-14.5)
[2017-08-04 08:46] LABS: Basophils % 0.1 %; Eosinophils # 0.1 K/mcL (0.0-0.6); Eosinophils % 1.6 %; Hematocrit 22.9 % (37.5-50.1); Hemoglobin 7.4 g/dL (12.9-16.9); Immature Platelets 5.8 % (1.1-6.1); Lymphocytes # 0.9 K/mcL (0.6-4.6); Lymphocytes % 13.3 %; Mean Corpuscular HGB Conc 32.3 g/dL (31.6-35.5); Mean Corpuscular Volume 86.7 fL (83.0-100.0); Mean Platelet Volume 11.7 fL (9.4-12.4); Monocytes # 0.8 K/mcL (0.0-1.3); Monocytes % 11.9 %; Platelet Count 108 K/mcL (140-400); Red Blood Count 2.64 M/mcL (4.19-5.50); Segmented Neutrophils % 72.5 %
[2017-08-04 08:48] LABS: BUN/Creatinine Ratio 16 (6-26); Blood Urea Nitrogen 13 mg/dL (8-23); Calcium 8.1 mg/dL (8.6-10.3); Carbon Dioxide 22 mEq/L (23-29); Chloride 116 mEq/L (98-107); Glucose 116 mg/dL (70-105); Neutrophils # 5.2 K/mcL (1.6-8.9); Osmolality,Calculated 297 (280-300); Potassium 3.5 mEq/L (3.5-5.1); Sodium 143 mEq/L (136-145); eGFR For African Americans > 60 (> 60); eGFR For Non-African Americans > 60 (> 60)
[2017-08-04] MEDS: Fluconazole 200 MG/100 ML 200 MG/100 ML BAG IVPB SCH (09:47)
[2017-08-04] MEDS: Finasteride 5 MG TABLET PO SCH (09:54)
[2017-08-04] MEDS: Diltiazem CD (24hr) 180 MG CAPSULE PO SCH (09:55)
[2017-08-04] MEDS: Aspirin Enteric Coated 81 MG Tablet PO SCH (09:55)
[2017-08-04] MEDS: LUTEIN PO SCH (09:55)
--- NOTE | 2017-08-04 09:56 | Internal Med Progress Note ---
Date of Encounter: 08/04/17 Time of Encounter: 09:54 - Assessment and plan (1) Atrial fibrillation with RVR Current Visit: Yes Status: Acute Assessment and plan: Patient remains in A. fib. Rate controlled at this time. We will increase Cardizem dosage to 180 mg. Holding Xarelto due to anemia We will consult cardiology concerning anticoagulation therapy- CHADS VASC 3 (2) UTI (urinary tract infection) Current Visit: Yes Status: Acute Assessment and plan: urinalysis positive for pyuria and yeast no culture was sent- will have nursing recollect ID consulted appreciate recommendations- appears blood cultures show enterococcus faecalis sensitive to ampicillin-vancomycin discontinued per infectious disease and started on ampicillin monitor CBC Qualifiers: Urinary tract infection type: site unspecified Hematuria presence: with hematuria Qualified Code(s): N39.0 - Urinary tract infection, site not specified; R31.9 - Hematuria, unspecified; R31.9 - Hematuria, unspecified (3) Thrombocytopenia Current Visit: Yes Status: Acute Assessment and plan: Suspect rt sepsis- ID stopped linezolid dt thrombocytopenia-platelets have improved since yesterday up to 108 Hemoglobin has dropped-no active bleeding at this time patient was given 2 units PRBCs we will continue to monitor (4) Sepsis Current Visit: Yes Status: Acute Assessment and plan: Patient had 2 SIRs criteria on admission likely secondary to bacteremia and UTI blood cultures positive for enterococcus- sensitivity to ampicillin. Vancomycin was stopped per infectious disease and ampicillin initiated. Qualifiers: Sepsis type: sepsis due to unspecified organism Qualified Code(s): A41.9 - Sepsis, unspecified organism (5) MRSA (methicillin resistant Staphylococcus aureus) infection Current Visit: Yes Status: Acute Assessment and plan: Previously MRSA bacteremia and cystitis. Completed treatment with Zyvox previously MRSA screen negative Awaiting records from OSH (6) HTN (hypertension) Current Visit: Yes Status: Chronic Assessment and plan: Blood pressure controlled. Continue Cardizem Qualifiers: Hypertension type: essential hypertension Qualified Code(s): I10 - Essential (primary) hypertension (7) Bladder cancer Current Visit: Yes Status: Acute Assessment and plan: Status post bladder tumor resection which was completed in [place]-has been experiencing recurrent bouts of infection. Follow up with urology in cancer center after discharge. Qualifiers: Bladder location: unspecified site Qualified Code(s): C67.9 - Malignant neoplasm of bladder, unspecified (8) Anemia Current Visit: Yes Status: Suspected Assessment and plan: 1 patient's hemoglobin was 8.4 on admission and has trended downward he was 6.9 yesterday he was typed and crossed for 2 units and transfused of PRBCs. Hemoccult was positive. Patient has not had any past history of GI bleed. He has not had colonoscopy or EGD. He is on Xarelto which we have held at this time. has expressed that she does not want the patient back on Xarelto. We will consult GI continue to monitor CBC-patient will be nothing by mouth after midnight-for possible EGD in a.m. Qualifiers: Anemia type: other cause Other causes of anemia: other cause, not classified Qualified Code(s): D64.89 - Other specified anemias (9) Status post transcatheter aortic valve replacement Current Visit: Yes Status: Acute Assessment and plan: 1 TAVR completed in JAN 2017 [place] -he does have bacteremia TTE completed-evidence for endocarditis not visualized on this study. Platelets are improving Consult to cardiology possible LUIGI (10) DVT prophylaxis Current Visit: Yes Status: Acute Assessment and plan: SCD dt Anemia - Time Spent With Patient Total time spent is greater than 50% in coordination of care (as documented) at patient's floor/unit and/or counseling patient: - Subjective Interval history: Patient is new to me, I did review records. Patient was examined at bedside. Denies any pain or discomfort. voiced concern about drop in Hgb. No active bleeding noted. We will check stool for occult blood. Xarelto on hold for now . - Constitutional Vitals: Temp Pulse Resp BP Pulse Ox 98.6 F 78 20 135/61 93 08/04/17 06:09 08/04/17 06:09 08/04/17 06:09 08/04/17 06:09 08/04/17 04:02 General appearance: Present: cooperative, A&O X 3, no acute distress, answers questions appropriately - Head Head exam: Present: atraumatic, normocephalic - Eye Eye exam: Present: PERRL, conjuntiva pink, sclera anicteric Pupils: Present: PERRL - Neck Neck exam general surgery: Present: supple, trachea midline. Absent: lymphadenopathy - Respiratory Respiratory exam: Present: CTAB. Absent: accessory muscle use, rales, rhonchi, wheezes - Cardiovascular Cardiovascular exam: Present: RRR, +S1, +S2. Absent: diastolic murmur, gallop, rubs, systolic murmur - GI/Abdominal GI/Abdominal exam: Present: normal bowel sounds, soft, no peritoneal signs. Absent: distended, tenderness - Extremities Exam Extremities exam: Present: warm, radial pulses palpable and symmetrical. Absent : calf tenderness, cyanotic, pedal edema - Neurological Exam Neurological exam: Present: CN II-XII intact, oriented X3, no focal deficits. Absent: pronater drift, facial droop, speech deficit - Skin Skin exam: Present: dry, intact Internal Medicine: Result - Labs CBC & Chem 7: 08/04/17 08:15 08/04/17 08:15 Labs: Short CBC 08/03/17 08/03/17 08/04/17 Range/Units 10:24 18:24 08:15 WBC 7.1 (4.3-11.1) K/mcL Hgb 7.1 L 6.9 L 7.4 L (12.9-16.9) g/dL Hct 22.5 L 21.1 L 22.9 L (37.5-50.1) % Plt Count 108 L (140-400) K/mcL Neutrophils # 5.2 (1.6-8.9) K/mcL BMP 08/03/17 08/04/17 05:09 08:15 Sodium 137 143 Potassium 3.5 3.5 Chloride 110 H 116 H Carbon Dioxide 18 L 22 L BUN 14 13 Creatinine 0.95 0.80 Glucose 158 H 116 H Calcium 8.1 L 8.1 L Liver Function 08/03/17 Range/Units 05:09 Total Bilirubin 1.1 H (0.3-1.0) mg/dL Direct Bilirubin 0.3 H (0.0-0.2) mg/dL AST 28 (13-39) Units/L ALT 23 (7-52) Units/L Alkaline Phosphatase 75 (34-104) Units/L Albumin 3.3 L (3.5-5.7) g/dL - Impressions Impressions Echocardiogram 08/03/17 07:44 Impressions: LVEF 65%. Indeterminate diastolic function. Normal right ventricular structure and function. Severely dilated left atrium. Mild mitral regurgitation. Bioprosthetic valve demonstrates normal function by Doppler. Moderate pulmonary hypertension. Evidence for endocarditis not visualized on this study. Left Ventricular Wall Motion: Rest Echo Findings All wall segments showed normal motion. Findings: Study Quality * Technically adequate exam. ECG Findings * Atrial fibrillation. Left Ventricle * LVEF 65%. * Normal LV chamber size, wall thickness and function. * Indeterminate diastolic function. Right Ventricle * Normal right ventricular structure and function. Left Atrium * Severely dilated left atrium. Right Atrium * Mildly dilated right atrium. Aortic Valve * No aortic regurgitation. * No aortic stenosis. * Bioprosthetic aortic valve not well visualized. Mitral Valve * No mitral stenosis. * Mild mitral annular calcification * Mild mitral regurgitation. * Mlldly thickened/calcified mitral valve leaflets. Tricuspid Valve * Normal tricuspid valve structure. * Mild tricuspid regurgitation. * Estimated RA pressure is 3 mmHg. * Estimated RVSP is 53 mmHg. * Moderate pulmonary hypertension. Pulmonic Valve * Pulmonic valve is not well visualized. * No pulmonic stenosis. * No pulmonic regurgitation. Pulmonary Artery * Pulmonary artery not well visualized. Aorta * Normally sized aortic root. Device lead * A device lead was visualized in the right atrium and right ventricle. Pericardium * There is no pericardial effusion present. Interatrial Septum * No evidence of PFO by color Doppler. IVC * Normal IVC dimensions and inspiratory collapse. Consult Discharge Plan - Plan Referrals: Miguel Ayala MD [Primary Care Provider] -
--- NOTE | 2017-08-04 10:03 | Infectious Disease Progress No ---
Date of Encounter: 08/04/17 Time of Encounter: 10:01 - Assessment and Plan (1) Sepsis Current Visit: Yes Status: Acute The patient had two SIRS criteria on admission. Likely secondary to bacteremia and UTI. Improved. WBC normal. Fever and tachycardia have resolved. Blood cultures drawn 08/02/17 are positive 2/2 sets for Enterococcus faecalis. Qualifiers: Sepsis type: sepsis due to unspecified organism Qualified Code(s): A41.9 - Sepsis, unspecified organism (2) Bacteremia Current Visit: Yes Status: Acute ausative organism: Enteroccocus faecalis. Source: Likely the urine. Blood cultures drawn 08/02/17 are positive 2/2 sets. Complicated due to the presence of pacemaker, bioprosthetic aortic valve, and bilateral knee hardware. No endocarditis stigmata noted. The patient has one major and one minor Modified Nur's Criteria. TTE done during previous hospitalization in June was negative, but at that time the patient did not have bacteremia. Repeat blood cultures x 2 sets drawn 08/03/17 are pending. TTE negative for vegetations. Check rheumatoid factor. Discontinue Vancomycin. Start ampicillin 2 grams IV Q4H. Await repeat cultures. Duration of treatment depends on the clinical picture, but likely 4 weeks. Consult social science manager to assist with discharge planning. Monitor renal function and for drug toxicity and dose-adjust antibiotics. Avoid insertion of central venous access until blood cultures are negative x 48 hours. (3) UTI (urinary tract infection) Current Visit: Yes Status: Acute Causative organism unclear. Urinalysis positive for pyuria and yeast, but no culture was sent. Urine culture ordered yesterday is pending. Continue antibiotics as above. Continue fluconazole 200mg IV daily (day 2). Cr Cl ~52. Baseline LFTs normal. Duration of treatment depends on the clinical picture. Monitor renal and liver function and for drug toxicity and dose-adjust antibiotics. Qualifiers: Urinary tract infection type: site unspecified Hematuria presence: with hematuria Qualified Code(s): N39.0 - Urinary tract infection, site not specified; R31.9 - Hematuria, unspecified; R31.9 - Hematuria, unspecified (4) Thrombocytopenia Current Visit: Yes Status: Acute Likely multifactorial: sepsis + recent use of linezolid. No acute bleeding noted on exam. Improved. Continue to trend. Management per the primary team. (5) Atrial fibrillation with RVR Current Visit: Yes Status: Acute Chronic A-fib with RVR likely secondary to sepsis. Rate-controlled. Management per the primary team. (6) Anemia Current Visit: Yes Status: Suspected Hgb improved slightly to 7.4 this morning after PRBC transfusion. No acute bleeding noted on exam. Continue to trend. Further workup and management per the primary team. Qualifiers: Anemia type: other cause Other causes of anemia: other cause, not classified Qualified Code(s): D64.89 - Other specified anemias (7) History of MRSA infection Current Visit: Yes Status: Acute 07/12/17 urine culture positive for MRSA at OSH. Treated with course of PO linezolid. MRSA screen negative. Will request records from OSH. (8) Pacemaker Current Visit: Yes Status: Acute Status post pacemaker placement in 2016. Insertion site well-healed without evidence of infection. TTE negative for vegetations. Recommend LUIGI when platelet count improves. (9) Status post transcatheter aortic valve replacement Current Visit: Yes Status: Acute January 2017. Bioprosthetic valve. (10) HTN (hypertension) Current Visit: Yes Status: Chronic Qualifiers: Hypertension type: essential hypertension Qualified Code(s): I10 - Essential (primary) hypertension (11) Bladder cancer Current Visit: Yes Status: Acute Diagnosed in May 2017. Status post cystoscopy with resection of the bladder tumor. Per patient's , they were able to resect the entire tumor and patient needs repeat imaging in three months. No chemo/radiation planned at this point. Qualifiers: Bladder location: unspecified site Qualified Code(s): C67.9 - Malignant neoplasm of bladder, unspecified - Subjective Interval history: Patient seen and examined. No acute events noted overnight. Patient sitting up on the side of the bed. Denies fevers, chills, rigors. Denies chest pain, shortness of breath, or cough. Denies nausea, vomiting, or constipation. States his stools are a little loose. Denies urinary complaints, appetite changes, or abdominal pain. Denies oral thrush or new skin lesions. Infect Dis PN-Objective Data - Labs CBC & Chem 7: 08/04/17 08:15 08/04/17 08:15 Labs: Laboratory Results - last 24 hr 08/03/17 08/03/17 08/03/17 05:09 10:24 11:54 WBC RBC Hgb 7.1 L Hct 22.5 L MCV MCH MCHC RDW Plt Count MPV Immature Gran % Seg Neutrophils % Lymphocytes % Monocytes % Eosinophils % Basophils % Neutrophils # Lymphocytes # Monocytes # Eosinophils # Basophils # Immature Plt Fraction Sodium 137 Potassium 3.5 Chloride 110 H Carbon Dioxide 18 L BUN 14 Creatinine 0.95 Est GFR ( Amer) > 60 Est GFR (Non-Af Amer) > 60 BUN/Creatinine Ratio 15 Glucose 158 H Calculated Osmolality 288 Calcium 8.1 L Magnesium 1.5 L Total Bilirubin 1.1 H Direct Bilirubin 0.3 H Indirect Bilirubin 0.8 AST 28 ALT 23 Alkaline Phosphatase 75 Serum Total Protein 5.4 L Albumin 3.3 L Globulin 2.1 L Albumin/Globulin Ratio 1.6 Triglycerides 80 Cholesterol 87 LDL Cholesterol, Calc 31 VLDL Cholesterol, Calc 16 HDL Cholesterol 40 Cholesterol/HDL Ratio 2.2 Nasal Screen MRSA (PCR) Negative Vancomycin Trough Blood Type Antibody Screen Crossmatch 08/03/17 08/03/17 08/04/17 18:24 22:42 08:15 WBC 7.1 RBC 2.64 L Hgb 6.9 L 7.4 L Hct 21.1 L 22.9 L MCV 86.7 MCH 28.0 MCHC 32.3 RDW 15.6 H Plt Count 108 L MPV 11.7 Immature Gran % 0.6 Seg Neutrophils % 72.5 Lymphocytes % 13.3 Monocytes % 11.9 Eosinophils % 1.6 Basophils % 0.1 Neutrophils # 5.2 Lymphocytes # 0.9 Monocytes # 0.8 Eosinophils # 0.1 Basophils # 0.0 Immature Plt Fraction 5.8 Sodium Potassium Chloride Carbon Dioxide BUN Creatinine Est GFR ( Amer) Est GFR (Non-Af Amer) BUN/Creatinine Ratio Glucose Calculated Osmolality Calcium Magnesium Total Bilirubin Direct Bilirubin Indirect Bilirubin AST ALT Alkaline Phosphatase Serum Total Protein Albumin Globulin Albumin/Globulin Ratio Triglycerides Cholesterol LDL Cholesterol, Calc VLDL Cholesterol, Calc HDL Cholesterol Cholesterol/HDL Ratio Nasal Screen MRSA (PCR) Vancomycin Trough Blood Type A POSITIVE Antibody Screen NEGATIVE Crossmatch See Detail 08/04/17 08/04/17 08:15 08:15 WBC RBC Hgb Hct MCV MCH MCHC RDW Plt Count MPV Immature Gran % Seg Neutrophils % Lymphocytes % Monocytes % Eosinophils % Basophils % Neutrophils # Lymphocytes # Monocytes # Eosinophils # Basophils # Immature Plt Fraction Sodium 143 Potassium 3.5 Chloride 116 H Carbon Dioxide 22 L BUN 13 Creatinine 0.80 Est GFR ( Amer) > 60 Est GFR (Non-Af Amer) > 60 BUN/Creatinine Ratio 16 Glucose 116 H Calculated Osmolality 297 Calcium 8.1 L Magnesium Total Bilirubin Direct Bilirubin Indirect Bilirubin AST ALT Alkaline Phosphatase Serum Total Protein Albumin Globulin Albumin/Globulin Ratio Triglycerides Cholesterol LDL Cholesterol, Calc VLDL Cholesterol, Calc HDL Cholesterol Cholesterol/HDL Ratio Nasal Screen MRSA (PCR) Vancomycin Trough 17 H Blood Type Antibody Screen Crossmatch Cultures: Serology 08/03/17 08/02/17 Range/Units 11:54 07:00 Nasal Screen MRSA (PCR) Negative Negative (Negative) - Impressions Impressions Echocardiogram 08/03/17 07:44 Impressions: LVEF 65%. Indeterminate diastolic function. Normal right ventricular structure and function. Severely dilated left atrium. Mild mitral regurgitation. Bioprosthetic valve demonstrates normal function by Doppler. Moderate pulmonary hypertension. Evidence for endocarditis not visualized on this study. Left Ventricular Wall Motion: Rest Echo Findings All wall segments showed normal motion. Findings: Study Quality * Technically adequate exam. ECG Findings * Atrial fibrillation. Left Ventricle * LVEF 65%. * Normal LV chamber size, wall thickness and function. * Indeterminate diastolic function. Right Ventricle * Normal right ventricular structure and function. Left Atrium * Severely dilated left atrium. Right Atrium * Mildly dilated right atrium. Aortic Valve * No aortic regurgitation. * No aortic stenosis. * Bioprosthetic aortic valve not well visualized. Mitral Valve * No mitral stenosis. * Mild mitral annular calcification * Mild mitral regurgitation. * Mlldly thickened/calcified mitral valve leaflets. Tricuspid Valve * Normal tricuspid valve structure. * Mild tricuspid regurgitation. * Estimated RA pressure is 3 mmHg. * Estimated RVSP is 53 mmHg. * Moderate pulmonary hypertension. Pulmonic Valve * Pulmonic valve is not well visualized. * No pulmonic stenosis. * No pulmonic regurgitation. Pulmonary Artery * Pulmonary artery not well visualized. Aorta * Normally sized aortic root. Device lead * A device lead was visualized in the right atrium and right ventricle. Pericardium * There is no pericardial effusion present. Interatrial Septum * No evidence of PFO by color Doppler. IVC * Normal IVC dimensions and inspiratory collapse. Exam - Constitutional Vitals: Temp Pulse Resp BP Pulse Ox 98.2 F 96 16 120/59 98 08/04/17 09:58 08/04/17 09:58 08/04/17 09:58 08/04/17 09:58 08/04/17 09:58 General appearance: average body habitus, cooperative, no acute distress - Head Head exam: Present: atraumatic, normal inspection, normocephalic - Eye Eye exam: Present: EOMI, normal appearance, PERRL Pupils: Present: normal accommodation Additional comments: No subconjunctival hemorrhage noted. - ENT ENT exam: Present: mucous membranes moist - Neck Neck exam: Present: normal inspection - Respiratory Respiratory exam: Present: CTAB. Absent: rales, respiratory distress, rhonchi, wheezes - Cardiovascular Cardiovascular exam: Present: irregular rhythm. Absent: tachycardia - GI/Abdominal GI/Abdominal exam: Present: normal bowel sounds, soft. Absent: distended, tenderness - Extremities Exam Extremities exam: Present: normal inspection. Absent: joint swelling, pedal edema, tenderness - Back Exam Back exam: Present: normal inspection. Absent: CVA tenderness (L), CVA tenderness (R) - Neurological Exam Neurological exam: Present: alert, oriented X3, no focal deficits - Psychiatric Psychiatric exam: Present: normal affect, normal mood - Skin Skin exam: Present: dry, intact, normal color, warm Additional comments: No endocarditis stigmata noted. Consult Discharge Plan - Plan Referrals: Miguel Ayala MD [Primary Care Provider] - - Attending Attestation I examined this patient and my medical decision-making was reviewed with the Resident Physician. I agree with the documented findings, disposition and treatment plan as described except to the extent set forth below.
[2017-08-04] MEDS: Ampicillin 2 GM in 0.9 % Sodium Chloride Mini Bag 100 ML IVPB SCH ×2 (16:17→19:47)
--- NOTE | 2017-08-05 00:01 | Electrocardiograph Report ---
[place] [id number] Test Date: 2017-08-03 Pat Name: Talat Fan Department: 115 Room: 3A55 Gender: M [employer] Developer: [id number] : 1930 Requested By: Aidee Christine Order Number: [id number] Reading MD: Pilar Lr Measurements Intervals [place] Rate: 129 P: [place]: 0 QRS: -47 QRSD: 92 T: 89 QT: 292 QTc: 368 Interpretive Statements ATRIAL FIBRILLATION WITH RAPID VENTRICULAR RESPONSE LOW QRS VOLTAGE IN EXTREMITY LEADS LEFT ANTERIOR FASCICULAR BLOCK MODERATE ST DEPRESSION Electronically Signed On 08-04-2017 23:59:15 EDT by Pilar Lr
[2017-08-05] MEDS: Ampicillin 2 GM in 0.9 % Sodium Chloride Mini Bag 100 ML IVPB SCH ×6 (00:10→22:12)
--- NOTE | 2017-08-05 00:22 | Electrocardiograph Report ---
[place] [address] Test Date: 2017-08-02 Pat Name: Talat Fan Department: 102 Room: 3A55 Gender: M Advertiser: Jaden : 1930 Requested By: Taj Jimenez Order Number: [id number] Reading MD: Pilar Lr Measurements Intervals [place] Rate: 131 P: [place]: 0 QRS: -53 QRSD: 80 T: 68 QT: 250 QTc: 327 Interpretive Statements ATRIAL FIBRILLATION WITH RAPID VENTRICULAR RESPONSE WITH ABERRANT CONDUCTION OR VENTRICULAR PREMATURE COMPLEXES MARKED LEFT AXIS DEVIATION [QRS AXIS < -30] SEPTAL MYOCARDIAL INFARCTION [40+ ms Q WAVE IN V1/V2], PROBABLY OLD Electronically Signed On 08-05-2017 0:21:28 EDT by Pilar Lr
[2017-08-05 05:00] LABS: Basophils % 0.3 %; Eosinophils # 0.2 K/mcL (0.0-0.6); Eosinophils % 2.8 %; Hematocrit 24.7 % (37.5-50.1); Hemoglobin 8.1 g/dL (12.9-16.9); Immature Granulocytes % 0.3 % (0-4); Lymphocytes # 1.1 K/mcL (0.6-4.6); Mean Corpuscular HGB Conc 32.8 g/dL (31.6-35.5); Mean Corpuscular Hemoglobin 28.4 pg (28.0-33.3); Mean Corpuscular Volume 86.7 fL (83.0-100.0); Mean Platelet Volume 11.9 fL (9.4-12.4); Monocytes # 0.7 K/mcL (0.0-1.3); Monocytes % 9.7 %; Neutrophils # 4.7 K/mcL (1.6-8.9); Platelet Count 127 K/mcL (140-400); Red Blood Count 2.85 M/mcL (4.19-5.50); Red Cell Distribution Width 15.7 % (11.5-14.5); Segmented Neutrophils % 69.9 %
[2017-08-05 05:10] LABS: BUN/Creatinine Ratio 20 (6-26); Blood Urea Nitrogen 16 mg/dL (8-23); Calcium 8.3 mg/dL (8.6-10.3); Carbon Dioxide 20 mEq/L (23-29); Chloride 115 mEq/L (98-107); Glucose 120 mg/dL (70-105); Osmolality,Calculated 298 (280-300); Potassium 3.5 mEq/L (3.5-5.1); Sodium 143 mEq/L (136-145); eGFR For African Americans > 60 (> 60); eGFR For Non-African Americans > 60 (> 60)
[2017-08-05 05:21] LABS: INR 1.2; Prothrombin Time 13.2 Seconds (9.4-12.1)
[2017-08-05 05:23] LABS: Activated Partial Thrombo Time 25.5 Seconds (26.0-36.0)
--- NOTE | 2017-08-05 07:50 | Internal Med Progress Note ---
Date of Encounter: 08/05/17 Time of Encounter: 07:47 - Assessment and plan (1) Atrial fibrillation with RVR Current Visit: Yes Status: Acute Assessment and plan: Patient remains in A. fib. Rate controlled at this time. Cardizem at 180mg Holding Xarelto due to anemia We will consult cardiology concerning anticoagulation therapy- CHADS VASC 3 (2) UTI (urinary tract infection) Current Visit: Yes Status: Acute Assessment and plan: No fevers overnight, white count stable-urinalysis positive for pyuria and yeast-urine culture negative ID consulted appreciate recommendations- appears blood cultures show enterococcus faecalis sensitive to ampicillin-vancomycin discontinued per infectious disease and started on ampicillin monitor CBC Qualifiers: Urinary tract infection type: site unspecified Hematuria presence: with hematuria Qualified Code(s): N39.0 - Urinary tract infection, site not specified; R31.9 - Hematuria, unspecified; R31.9 - Hematuria, unspecified (3) Thrombocytopenia Current Visit: Yes Status: Acute Assessment and plan: Suspect rt sepsis- ID stopped linezolid dt thrombocytopenia-platelets have improved - will monitor Hemoglobin did drop however improved after transfusion-no active bleeding at this time-we will continue to monitor (4) Sepsis Current Visit: Yes Status: Acute Assessment and plan: Patient had 2 SIRs criteria on admission likely secondary to bacteremia and UTI blood cultures positive for enterococcus- sensitivity to ampicillin. Vancomycin was stopped per infectious disease and ampicillin initiated. Qualifiers: Sepsis type: sepsis due to unspecified organism Qualified Code(s): A41.9 - Sepsis, unspecified organism (5) MRSA (methicillin resistant Staphylococcus aureus) infection Current Visit: Yes Status: Acute Assessment and plan: Previously MRSA bacteremia and cystitis. Completed treatment with Zyvox previously MRSA screen negative Awaiting records from OSH (6) HTN (hypertension) Current Visit: Yes Status: Chronic Assessment and plan: Blood pressure controlled. Continue Cardizem Qualifiers: Hypertension type: essential hypertension Qualified Code(s): I10 - Essential (primary) hypertension (7) Bladder cancer Current Visit: Yes Status: Acute Assessment and plan: Status post bladder tumor resection which was completed in [place]-has been experiencing recurrent bouts of infection. Follow up with urology in cancer center after discharge. Qualifiers: Bladder location: unspecified site Qualified Code(s): C67.9 - Malignant neoplasm of bladder, unspecified (8) Anemia Current Visit: Yes Status: Suspected Assessment and plan: 1 patient's hemoglobin was 8.4 on admission and has trended downward he was 6.9 yesterday he was typed and crossed for 2 units and transfused of PRBCs. Hemoccult was positive. Patient has not had any past history of GI bleed. He has not had colonoscopy or EGD. He is on Xarelto which we have held at this time. has expressed that she does not want the patient back on Xarelto. Protonix IV Consult GI -EGD today Qualifiers: Anemia type: other cause Other causes of anemia: other cause, not classified Qualified Code(s): D64.89 - Other specified anemias (9) Status post transcatheter aortic valve replacement Current Visit: Yes Status: Acute Assessment and plan: 1 TAVR completed in JAN 2017 [place] -he does have bacteremia TTE completed-evidence for endocarditis not visualized on this study. Platelets are improving Consult to cardiology possible LUIGI (10) Diarrhea Current Visit: Yes Status: Acute Assessment and plan: Patient has been expereince loose stools since yesterday. He has been on different ATB. We will obtain stool C diff Start probiotics Qualifiers: Diarrhea type: unspecified type Qualified Code(s): R19.7 - Diarrhea, unspecified (11) DVT prophylaxis Current Visit: Yes Status: Acute Assessment and plan: LEIDY dt Anemia - Time Spent With Patient Total time spent is greater than 50% in coordination of care (as documented) at patient's floor/unit and/or counseling patient: - Subjective Interval history: Patient was examined at bedside. He is NPO for EGD this AM. He is complaining of diarrhea which started yesterday. He also has some SOB on exertion. Denies any CP or abd pain No N/V - Constitutional Vitals: Temp Pulse Resp BP Pulse Ox 98.7 F 93 18 148/57 93 08/05/17 07:11 08/05/17 07:11 08/05/17 07:11 08/05/17 07:11 08/05/17 07:11 General appearance: Present: cooperative, A&O X 3, no acute distress, answers questions appropriately - Head Head exam: Present: atraumatic, normocephalic - Eye Eye exam: Present: PERRL, conjuntiva pink, sclera anicteric Pupils: Present: PERRL - Neck Neck exam general surgery: Present: supple, trachea midline. Absent: lymphadenopathy - Respiratory Respiratory exam: Present: CTAB. Absent: accessory muscle use, rales, rhonchi, wheezes - Cardiovascular Cardiovascular exam: Present: RRR, +S1, +S2. Absent: diastolic murmur, gallop, rubs, systolic murmur - GI/Abdominal GI/Abdominal exam: Present: normal bowel sounds, soft, no peritoneal signs. Absent: distended, tenderness - Extremities Exam Extremities exam: Present: warm, radial pulses palpable and symmetrical. Absent : calf tenderness, cyanotic, pedal edema - Neurological Exam Neurological exam: Present: CN II-XII intact, oriented X3, no focal deficits. Absent: pronater drift, facial droop, speech deficit - Skin Skin exam: Present: dry, intact Internal Medicine: Result - Labs CBC & Chem 7: 08/05/17 04:00 08/05/17 04:00 Labs: Short CBC 08/04/17 08/05/17 Range/Units 08:15 04:00 WBC 7.1 6.7 (4.3-11.1) K/mcL Hgb 7.4 L 8.1 L (12.9-16.9) g/dL Hct 22.9 L 24.7 L (37.5-50.1) % Plt Count 108 L 127 L (140-400) K/mcL Neutrophils # 5.2 4.7 (1.6-8.9) K/mcL BMP 08/04/17 08/05/17 08:15 04:00 Sodium 143 143 Potassium 3.5 3.5 Chloride 116 H 115 H Carbon Dioxide 22 L 20 L BUN 13 16 Creatinine 0.80 0.82 Glucose 116 H 120 H Calcium 8.1 L 8.3 L - ABG Interpretation ABG results: PT/INR, D-dimer PT 13.2 Seconds (9.4-12.1) H 08/05/17 04:00 - Impressions Impressions Echocardiogram 08/03/17 07:44 Impressions: LVEF 65%. Indeterminate diastolic function. Normal right ventricular structure and function. Severely dilated left atrium. Mild mitral regurgitation. Bioprosthetic valve demonstrates normal function by Doppler. Moderate pulmonary hypertension. Evidence for endocarditis not visualized on this study. Left Ventricular Wall Motion: Rest Echo Findings All wall segments showed normal motion. Findings: Study Quality * Technically adequate exam. ECG Findings * Atrial fibrillation. Left Ventricle * LVEF 65%. * Normal LV chamber size, wall thickness and function. * Indeterminate diastolic function. Right Ventricle * Normal right ventricular structure and function. Left Atrium * Severely dilated left atrium. Right Atrium * Mildly dilated right atrium. Aortic Valve * No aortic regurgitation. * No aortic stenosis. * Bioprosthetic aortic valve not well visualized. Mitral Valve * No mitral stenosis. * Mild mitral annular calcification * Mild mitral regurgitation. * Mlldly thickened/calcified mitral valve leaflets. Tricuspid Valve * Normal tricuspid valve structure. * Mild tricuspid regurgitation. * Estimated RA pressure is 3 mmHg. * Estimated RVSP is 53 mmHg. * Moderate pulmonary hypertension. Pulmonic Valve * Pulmonic valve is not well visualized. * No pulmonic stenosis. * No pulmonic regurgitation. Pulmonary Artery * Pulmonary artery not well visualized. Aorta * Normally sized aortic root. Device lead * A device lead was visualized in the right atrium and right ventricle. Pericardium * There is no pericardial effusion present. Interatrial Septum * No evidence of PFO by color Doppler. IVC * Normal IVC dimensions and inspiratory collapse. - VTE Documentation of Mechanical Device: Intermittent pneumatic compression device Consult Discharge Plan - Plan Referrals: Miguel Ayala MD [Primary Care Provider] -
[2017-08-05 09:05] LABS: % Iron Saturation 9 % (20-55); Ferritin 229 ng/ml (20-250); Iron 18 mcg/dL (65-175); Transferrin 150 mg/dL (203-362)
--- NOTE | 2017-08-05 09:36 | Cardiology Consult Note ---
<Toni Merrill - Last Filed: 08/05/17 10:50> Date of Encounter: 08/05/17 Time of Encounter: 09:26 Assessment and Plan (1) Atrial fibrillation with RVR Current Visit: Yes Status: Acute Presented with atrial fibrillation with RVR in the setting of UTI/bacteremia. Known history of chronic afib. Currently rate controlled with AVg HR 85 bpm over last 24 hours. Continue cardizem. TTE reviewed: LVEF 65%. Indeterminate diastolic function. Normal right ventricular structure and function. Severely dilated left atrium. Mild mitral regurgitation. Bioprosthetic valve demonstrates normal function by Doppler. Moderate pulmonary hypertension. Evidence for endocarditis not visualized on this study. CHADS VASc= 6 for HTN, carotid artery disease, CVA2, age2. He also has history of PE. He is high risk for recurrent CVA. Ideally he should go back on anticoagulation as soon as he is stable from bleeding standpoint. He appears to not be tolerant to xarelto with mutiple recurrent bleeding episodes. Discussed with patient and , he previously did well on coumadin and are willing to try once bleeding issues resolved and cleared from GI standpoint. Consider restarting coumadin when able. (2) Bacteremia Current Visit: Yes Status: Acute Frequent UTI and MRSA UTI. Now with bacteremia. Blood cultures positive for enterococcus feacalis 08/02/09 x2. re-peat blood culture positive for gram positive cocci x2, final report pending. No vegitation seen on surface echo. ID evaluated patient and LUIGI was recommended in the setting of PPM and TAVR. Patient undergoing EGD today for anemia eval. Discussed with primary team, plan for LUIGI tomorrow. Okay to proceed as long as PLT above 50. (3) Pacemaker Current Visit: Yes Status: Acute S/p PPM placement at OSH 02/2017. (4) Status post transcatheter aortic valve replacement Current Visit: Yes Status: Acute S/p TAVR 01/2017 at [facility] in [place], [place]. Discussion w patient/family: The assessment and plan as outlined above was discussed with the patient and/or family members who expressed understanding and agreement. All questions were answered. Thank you for involving us in the care of your patient. Please call with any questions. History of Present Illness Consult date: 08/05/17 Requesting physician: Bea Costa Consult reason: Bleeding on xarelto Chief complaint: Fever History of present illness: Mr. Fan is a 87 year old male with past medical history of chronic atrial fibrillation on xarelto, PPM placed 02/2017, TAVR 01/2017 in [place], [place]. He also has past medical history of recent bladder cancer s/p tumor removal, CVA, and PE. He presented to the hospital for recurrent fever and weakness. He is found to have atrial fibrillation with RVR ,UTI, bacteremia, and acute on chronic anemia. Cardiology consulted for AC recommendations. Patient found to have positive stool guiac. Hgb dropped to 6.9. Xarelto was discontinued. Pt spouse reports diagnosis with bladder cancer in May this year after developing hematuria on xarelto. After tumor removal he developed hematuria again after being placed back on xarelto. Once resolved he was continued on xarelto. This admission he noticed frequent nose bleeds. Denies any other signs of bleeding. Since his bladder cancer diagnosis he also developed recurrent UTI with MRSA . This admission he is found to have bacteremia with enterococcus faecalis. LUIGI is recommended by infectious disease. He denies chest pain or palpitations. C/o SOB with exertion and presyncopal symptoms. Past Med Surg Social Fam HX - Past Medical History Medical history: atrial fibrillation (Xarelto), cancer (Bladder cancer s/p resection 05/2017), CVA, hypertension, kidney stones, pulmonary embolus, valvular heart disease (S/P TAVR 2016), other (Cardiac arrhythmia s/p pacemaker 2016) Psychiatric history: no psych history - Past Surgical History Surgical History: appendectomy, cholecystectomy, heart valve replacement (TAVR 01/2017), pacemaker (2016) - Social History Smoking Status: Former smoker Alcohol use: none Drug use: none - Family History Father Living Status: Hx Family Cancer: Yes (Lung Ca.) Medications and Allergies Aspirin [Lo-Dose Aspirin EC] 81 mg PO DAILY 08/02/17 [History] Calcium Carbonate [Calcium] 1,200 mg PO DAILY 08/02/17 [History] Cetirizine HCl 10 mg PO DAILY 08/02/17 [History] Finasteride [Proscar] 5 mg PO DAILY 08/02/17 [History] Lutein Extract/Zeaxanthin Ext [Lutein 15 mg Softgel] 1 cap PO DAILY 08/02/17 [ History] Rivaroxaban [Xarelto] 20 mg PO DAILY 08/02/17 [History] Simvastatin [Zocor] 10 mg PO DAILY 08/02/17 [History] Tamsulosin [Flomax] 0.4 mg PO DAILY 08/02/17 [History] Ampicillin 12 gm IV Q24H #28 vial 08/10/17 [Rx] Apixaban [Eliquis] 5 mg PO BID #60 tablet 08/10/17 [Rx] Diltiazem CD (24hr) [Cardizem CD] 180 mg PO DAILY #30 cap.er.24h 08/10/17 [Rx] Lactobacillus [Culturelle] 1 each PO BID #60 cap.sprink 08/10/17 [Rx] 3 Allergy/AdvReac Type Severity Reaction Status Date / Time No Known Allergies Allergy Verified 08/01/17 23:21 All Systems Review: The remainder of the systems were reviewed and are negative Physical Examination Vital Signs, Last 4 Hours Temp Pulse Resp BP Pulse Ox 08/05/17 07:11 98.7 F 93 18 148/57 93 General: Conversant, No Apparent Distress HEENT: Atraumatic, Normocephaly, Mucus Membranes Moist Neck: No JVD, Normal carotid pulses Cardiac: Other (Irregular) Lungs: Normal Breath Sounds, No Wheeze, Rales, Rhonchi Neuro: Alert and responsive, No focal deficits noted Abdomen: Soft, Non-Tender Skin: No rashes noted on visualized skin Musculoskeletal: No Chest Wall Tenderness Extremities: No Clubbing, No Cyanosis, Normal Pulses, Other (ankle edema noted. ) Results 08/05/17 04:00 08/05/17 04:00 Lab Results 08/05/17 08/05/17 08/05/17 04:00 04:00 04:00 WBC 6.7 Hgb 8.1 L Hct 24.7 L Plt Count 127 L INR 1.2 APTT 25.5 L Sodium 143 Potassium 3.5 Chloride 115 H Carbon Dioxide 20 L BUN 16 Creatinine 0.82 Glucose 120 H Calcium 8.3 L - Imaging and Cardiology Echo: report reviewed - EKG Interpretation EKG results cardiology: personally reviewed (Atrial fibrillation with RVR, HR 129) Consult Discharge Plan - Plan Instructions: Atrial Fibrillation (DC), Urinary Tract Infection in Men (DC), Sepsis (DC), Chronic Hypertension (DC), Anemia (GEN) Referrals: Alejandra Figueroa CNP [Advanced Practice Nurse] - 08/25/17 9:20 am Miguel Ayala MD [Primary Care Provider] - 08/14/17 10:15 am Prescriptions: Ampicillin 12 gm IV Q24H #28 vial Apixaban [Eliquis] 5 mg PO BID #60 tablet Diltiazem CD (24hr) [Cardizem CD] 180 mg PO DAILY #30 cap.er.24h Lactobacillus [Culturelle] 1 each PO BID #60 cap.sprink <Mike Shah - Last Filed: 08/10/17 22:13> Date of Encounter: 08/05/17 Time of Encounter: 21:00 - Attending Attestation I have personally performed a face to face evaluation on this patient. I have reviewed and agree with the care plan. History and Exam by me shows: CC: Fever and weakness Pt presented to ER for evaluation of recurrent fever and weakness, on and off last two weeks, He is here from [facility]. He recently underwent TAVR in that location. He was also diagnosed with CVA, PE and bladder cancer with partial bladder resection. He has had multiple bleeding events on Xaralto, and would like to change tx. PMHX: Chart reviewed, Hx obtained from at bedside and son telephonically. PE: pt seen and examined, agress with findings as documented. He is mildly confused, but orientates easily. IMP/Plan: 1. Chronic a fib, need to change his ability to take medications prn., rate controlled, now on Xaralto 2. Chronid Afib with controlled ventricular response on current medications. REC: Long conversation with pt, and son, pt and were partial to warfarin, but did not recall cost or hassle of follow up appts, pts son is concerned they will miss appoitments for INR checks, and declines putting pt back on Warfain. Will switch to Eliquis at family request. Assessment and Plan Discussion w patient/family: The assessment and plan as outlined above was discussed with the patient and/or family members who expressed understanding and agreement. All questions were answered. Thank you for involving us in the care of your patient. Please call with any questions. History of Present Illness History of present illness: Mr. Fan is a 87 year old male All Systems Review: The remainder of the systems were reviewed and are negative Physical Examination Vital Signs, Last 4 Hours Temp Pulse Resp BP Pulse Ox 08/10/17 19:13 97.9 F 77 15 146/75 97 Results 08/10/17 05:52 08/10/17 05:52 Lab Results 08/10/17 08/10/17 08/10/17 05:52 05:52 05:52 WBC 7.9 Hgb 9.9 L Hct 31.1 L Plt Count 397 INR 1.3 Sodium 145 Potassium 3.5 Chloride 110 H Carbon Dioxide 27 BUN 6 L Creatinine 0.89 Glucose 106 H Calcium 8.6
[2017-08-05] MEDS: LUTEIN PO SCH (09:47)
[2017-08-05] MEDS: Diltiazem CD (24hr) 180 MG CAPSULE PO SCH (09:47)
[2017-08-05] MEDS: Finasteride 5 MG TABLET PO SCH (09:47)
[2017-08-05] MEDS: Lactobacillus 1 EACH CAP.SPRINK PO SCH ×2 (09:47→22:12)
[2017-08-05] MEDS: Fluconazole 200 MG/100 ML 200 MG/100 ML BAG IVPB SCH (09:57)
--- NOTE | 2017-08-05 11:13 | Gastroenterology Consult Note ---
<Mateo Macario - Last Filed: 08/05/17 11:11> Date of Encounter: 08/05/17 Time of Encounter: 10:45 - Assessment and plan (1) Anemia Current Visit: Yes Status: Suspected Assessment and plan: On admission Hgb 8.4, but dropped to 6.9 on 08/03. He has received 2 units PRBC, and Hgb 8.1 this AM. Continue to monitor CBC and transfuse PRBC as needed. Plan for EGD today to r/o esophagitis, gastritis, duodenitis, PUD, MW tear, or AVM. If EGD negative, consider colonoscopy tomorrow. Check iron and ferritin. Patient and his request that Dr. Perrin contact their son Timothy who is a surgeon in [place] after the EGD at [phone]. Qualifiers: Anemia type: other cause Other causes of anemia: other cause, not classified Qualified Code(s): D64.89 - Other specified anemias (2) Sepsis Current Visit: Yes Status: Acute Assessment and plan: Management per Primary team and ID. Qualifiers: Sepsis type: sepsis due to unspecified organism Qualified Code(s): A41.9 - Sepsis, unspecified organism (3) Pacemaker Current Visit: Yes Status: Acute (4) Diarrhea Current Visit: Yes Status: Acute Qualifiers: Diarrhea type: unspecified type Qualified Code(s): R19.7 - Diarrhea, unspecified - Time Spent With Patient Total time spent is greater than 50% in coordination of care (as documented) at patient's floor/unit and/or counseling patient: GI History of Present Illness - Data of Consult Patient: new to practice Consult date: 08/05/17 Requesting Physician: Toma Shah MD - Consult Narrative Reason for consult: GI Bleed History of present illness: Mr. Fan is a 87 year old male with PMHx of Afib on Xarelto, HTN, HLD, kidney stones, recently diagnosed with bladder tumor possible cancer s/p tumor resection done in May 2017 @ [place], [place], who later developed post hemorrhagic anemia and sepsis with UTI with MRSA. Pt was found to be thrombocytopenic, which was likely caused by Linezolid, which has been stopped and platelets have improved. We have been consulted to evaluate his anemia. On admission Hgb 8.4, but dropped to 6.9 on 08/03. He has received 2 units PRBC, and Hgb 8.1 this AM. Procedures: Colonoscopy 11/04/2006 Dr. Blackwell: Serrated adenoma, tubular adenoma , and diverticulosis. NSAIDs: ASA Anticoagulation: Xarelto Past Med Surg Social Fam HX - Past Medical History Medical history: atrial fibrillation (Xarelto), cancer (Bladder cancer s/p resection 05/2017), CVA, hypertension, kidney stones, pulmonary embolus, valvular heart disease (S/P TAVR 2016), other (Cardiac arrhythmia s/p pacemaker 2016) Psychiatric history: no psych history - Past Surgical History Surgical History: appendectomy, cholecystectomy, heart valve replacement (TAVR 01/2017), pacemaker (2016) - Social History Smoking Status: Former smoker Alcohol use: none Drug use: none - Family History Father Living Status: Hx Family Cancer: Yes (Lung Ca.) - Gastrointestinal Gastrointestinal: Present: as per HPI - Constitutional Constitutional: as per HPI - EENT Eyes: as per HPI Ears: Present: as per HPI Nose, mouth and throat: Present: as per HPI - Cardiovascular Cardiovascular ROS: Present: as per HPI - Respiratory Respiratory IM: Present: as per HPI - Genitourinary Genitourinary: Absent: change in color, Urinary frequency - Neurological ROS Neurological GI: Present: as per HPI - Hematologic/Lymphatic Hematologic/Lymphatic pediatric: Present: as per HPI - Musculoskeletal Musculoskeletal ROS GI: Present: as per HPI - Integumentary Integumentary GI: Present: as per HPI - Psychiatric ROS Psychiatric GI: Present: as per HPI - Endocrine Endocrine IM: Present: as per HPI - Constitutional Vitals: Temp Pulse Resp BP Pulse Ox 98.7 F 93 18 148/57 93 08/05/17 07:11 08/05/17 07:11 08/05/17 07:11 08/05/17 07:11 08/05/17 08:00 General appearance: Present: cooperative, A&O X 3, no acute distress, answers questions appropriately - Head Head exam: Present: atraumatic, normocephalic - Eye Eye exam: Present: normal appearance, sclera anicteric - ENT ENT exam: Present: mucous membranes dry - Neck Neck exam general surgery: Present: normal inspection, trachea midline - Respiratory Respiratory exam: Present: CTAB. Absent: rales, rhonchi, wheezes - Cardiovascular Cardiovascular exam: Present: RRR, +S1, +S2 Additional comments: Pacemaker present - GI/Abdominal GI/Abdominal exam: Present: soft, no peritoneal signs. Absent: distended, firm , guarding, tenderness - Rectal Rectal exam: Present: deferred - Extremities Exam Extremities exam: Present: warm - Neurological Exam Neurological exam: Present: no focal deficits - Psychiatric Psychiatric exam: Present: normal affect, normal mood - Skin Skin exam: Present: dry, intact, normal color, warm Results - Labs CBC & Chem 7: 08/05/17 04:00 08/05/17 04:00 Labs: Last Result Calcium 8.3 mg/dL (8.6-10.3) L 08/05/17 04:00 Iron 18 mcg/dL (65-175) L 08/05/17 04:00 % Saturation 9 % (20-55) L 08/05/17 04:00 Transferrin 150 mg/dL (203-362) L 08/05/17 04:00 Ferritin 229 ng/ml (20-250) 08/05/17 04:00 Troponin I 0.03 ng/mL (< 0.04) 08/02/17 09:55 Triglycerides 80 mg/dL (< 150) 08/03/17 05:09 Stool Occult Blood Positive (Negative) A 08/03/17 17:40 Entire Visit Hgb 8.1 g/dL (12.9-16.9) L 08/05/17 04:00 Hct 24.7 % (37.5-50.1) L 08/05/17 04:00 PT 13.2 Seconds (9.4-12.1) H 08/05/17 04:00 Ferritin 229 ng/ml (20-250) 08/05/17 04:00 Total Bilirubin 1.1 mg/dL (0.3-1.0) H 08/03/17 05:09 AST 28 Units/L (13-39) 08/03/17 05:09 ALT 23 Units/L (7-52) 08/03/17 05:09 E. coli (PCR) Not Detected (Not Detect) 08/02/17 00:27 - ABG ABG results: PT/INR, D-dimer PT 13.2 Seconds (9.4-12.1) H 08/05/17 04:00 Consult Discharge Plan - Plan Referrals: Miguel Ayala MD [Primary Care Provider] - <Ana Perrin - Last Filed: 08/05/17 17:43> Date of Encounter: 08/05/17 Time of Encounter: 13:00 - Time Spent With Patient Total time spent is greater than 50% in coordination of care (as documented) at patient's floor/unit and/or counseling patient: GI History of Present Illness - Data of Consult Requesting Physician: Toma hSah MD - Consult Narrative History of present illness: Mr. Fan is a 87 year old male - Constitutional Vitals: Temp Pulse Resp BP Pulse Ox 98.5 F 81 18 157/81 94 08/05/17 15:49 08/05/17 16:39 08/05/17 16:39 08/05/17 16:39 08/05/17 16:39 Results - Labs CBC & Chem 7: 08/05/17 04:00 08/05/17 04:00 Labs: Last Result Calcium 8.3 mg/dL (8.6-10.3) L 08/05/17 04:00 Iron 18 mcg/dL (65-175) L 08/05/17 04:00 % Saturation 9 % (20-55) L 08/05/17 04:00 Transferrin 150 mg/dL (203-362) L 08/05/17 04:00 Ferritin 229 ng/ml (20-250) 08/05/17 04:00 Troponin I 0.03 ng/mL (< 0.04) 08/02/17 09:55 Triglycerides 80 mg/dL (< 150) 08/03/17 05:09 Stool Occult Blood Positive (Negative) A 08/03/17 17:40 Entire Visit Hgb 8.1 g/dL (12.9-16.9) L 08/05/17 04:00 Hct 24.7 % (37.5-50.1) L 08/05/17 04:00 PT 13.2 Seconds (9.4-12.1) H 08/05/17 04:00 Ferritin 229 ng/ml (20-250) 08/05/17 04:00 Total Bilirubin 1.1 mg/dL (0.3-1.0) H 08/03/17 05:09 AST 28 Units/L (13-39) 08/03/17 05:09 ALT 23 Units/L (7-52) 08/03/17 05:09 E. coli (PCR) Not Detected (Not Detect) 08/02/17 00:27 - ABG ABG results: PT/INR, D-dimer PT 13.2 Seconds (9.4-12.1) H 08/05/17 04:00 - Attending Attestation I have personally performed a face to face evaluation on this patient. I have reviewed and agree with the care plan. History and Exam by me shows: Patient seen denies any overt GI bleeding no abdominal symptom. Stools are brown. Recommendation: EGD and if negative then colonoscopy for the workup of his anemia
--- NOTE | 2017-08-05 11:20 | Infectious Disease Progress No ---
Date of Encounter: 08/05/17 Time of Encounter: 11:18 - Assessment and Plan (1) Sepsis Current Visit: Yes Status: Acute The patient had two SIRS criteria on admission. Likely secondary to bacteremia and UTI. Improved. WBC normal. Fever and tachycardia have resolved. Blood cultures drawn 08/02/17 are positive 2/2 sets for Enterococcus faecalis. Repeat blood cultures drawn 11/02/17 are positive 2/2 sets for GPC, likely Enterococcus. Repeat blood cultures x 2 sets now. Qualifiers: Qualified Code(s): A41.9 - Sepsis, unspecified organism (2) Bacteremia Current Visit: Yes Status: Acute ausative organism: Enteroccocus faecalis. Source: Likely the urine, but urine culture was negative despite pyruia on UA. Blood cultures drawn 08/02/17 are positive 2/2 sets. Repeat blood cultures drawn 08/03/17 are positive 2/2 as well. Complicated due to the presence of pacemaker, bioprosthetic aortic valve, and bilateral knee hardware. No endocarditis stigmata noted. The patient has one major and one minor Modified Nur's Criteria. TTE done during previous hospitalization in June was negative, but at that time the patient did not have bacteremia. TTE negative for vegetations. Will need LUIGI. Will see if the patient can have it done at the same time he has the EGD today. Rheumatoid factor normal. Continue ampicillin 2 grams IV Q4H. Await repeat cultures. Duration of treatment depends on the clinical picture, but likely 4 weeks. Consult health and social care teacher to assist with discharge planning. Monitor renal function and for drug toxicity and dose-adjust antibiotics. Avoid insertion of central venous access until blood cultures are negative x 48 hours. (3) UTI (urinary tract infection) Current Visit: Yes Status: Acute Causative organism unclear. Urinalysis positive for pyuria and yeast, but no culture was sent. Urine culture negative, but high index of suspicion for infection given the clinical picture and urinalysis findings. Continue antibiotics as above. Continue fluconazole 200mg IV daily (day 3). Cr Cl ~52. Baseline LFTs normal. Duration of treatment depends on the clinical picture. Continue fluconazole x 7 days. Can switch to PO if ready for discharge prior to completion. Will need a prolonged course of ampicillin due to bacteremia. Monitor renal and liver function and for drug toxicity and dose-adjust antibiotics. Qualifiers: Qualified Code(s): N39.0 - Urinary tract infection, site not specified; R31.9 - Hematuria, unspecified; R31.9 - Hematuria, unspecified (4) Thrombocytopenia Current Visit: Yes Status: Resolved Likely multifactorial: sepsis + recent use of linezolid. No acute bleeding noted on exam. Improved. Continue to trend. Management per the primary team. (5) Atrial fibrillation with RVR Current Visit: Yes Status: Acute Chronic A-fib with RVR likely secondary to sepsis. Rate-controlled. Management per the primary team. (6) Anemia Current Visit: Yes Status: Acute Hgb improved slightly improved to 8.1 this morning. No acute bleeding noted on exam, but FOBT positive. Xarelto on hold. GI consulted. Plan for EGD later today. Continue to trend. Further workup and management per the primary team. Qualifiers: Qualified Code(s): D64.89 - Other specified anemias (7) History of MRSA infection Current Visit: Yes Status: Resolved 07/12/17 urine culture positive for MRSA at OSH. Treated with course of PO linezolid. MRSA screen negative. Will request records from OSH. (8) Pacemaker Current Visit: Yes Status: Acute Status post pacemaker placement in 2016. Insertion site well-healed without evidence of infection. TTE negative for vegetations. Recommend LUIGI prior to discharge. Will see if it can be done at the same time as the EGD later today. (9) Status post transcatheter aortic valve replacement Current Visit: Yes Status: Acute January 2017. Bioprosthetic valve. (10) HTN (hypertension) Current Visit: Yes Status: Chronic Qualifiers: Qualified Code(s): I10 - Essential (primary) hypertension (11) Bladder cancer Current Visit: Yes Status: Acute Diagnosed in May 2017. Status post cystoscopy with resection of the bladder tumor. Per patient's , they were able to resect the entire tumor and patient needs repeat imaging in three months. No chemo/radiation planned at this point. Qualifiers: Qualified Code(s): C67.9 - Malignant neoplasm of bladder, unspecified (12) Diarrhea Current Visit: Yes Status: Resolved Etiology unclear: Infectious vs. antibiotic-related. Given the marked increase in stools, will check for C. diff. Initiate C. diff precautions. If negative, can discontinue C. diff precautions. Qualifiers: Qualified Code(s): R19.7 - Diarrhea, unspecified (13) GI bleed Current Visit: Yes Status: Acute Anemic with positive FOBT. GI consulted and planning for EGD later today. Await findings. Qualifiers: Qualified Code(s): K92.2 - Gastrointestinal hemorrhage, unspecified - Subjective Interval history: Patient seen and examined. No acute events noted overnight. Patient sitting up on the side of the bed. Denies fevers, chills, rigors. Denies chest pain or cough, but does report FLOWER. Denies nausea, vomiting, or constipation. States he is now having diarrhea and states he went more than 4 times yesterday. Denies urinary complaints, or abdominal pain. States he is NPO and would like to have something to drink, but he is not hungry. Denies oral thrush or new skin lesions. Infect Dis PN-Objective Data - Labs CBC & Chem 7: 08/10/17 05:52 08/10/17 05:52 Labs: Laboratory Results - last 24 hr 08/04/17 08/04/17 08/05/17 12:30 12:52 04:00 WBC 6.7 RBC 2.85 L Hgb 8.1 L Hct 24.7 L MCV 86.7 MCH 28.4 MCHC 32.8 RDW 15.7 H Plt Count 127 L MPV 11.9 Immature Gran % 0.3 Seg Neutrophils % 69.9 Lymphocytes % 17.0 Monocytes % 9.7 Eosinophils % 2.8 Basophils % 0.3 Neutrophils # 4.7 Lymphocytes # 1.1 Monocytes # 0.7 Eosinophils # 0.2 Basophils # 0.0 PT INR APTT Sodium Potassium Chloride Carbon Dioxide BUN Creatinine Est GFR ( Amer) Est GFR (Non-Af Amer) BUN/Creatinine Ratio Glucose POC Glucose Calculated Osmolality Calcium Iron % Saturation Transferrin Ferritin Nasal Screen MRSA (PCR) Negative Rheumatoid Factor 11 08/05/17 08/05/17 08/05/17 04:00 04:00 05:12 WBC RBC Hgb Hct MCV MCH MCHC RDW Plt Count MPV Immature Gran % Seg Neutrophils % Lymphocytes % Monocytes % Eosinophils % Basophils % Neutrophils # Lymphocytes # Monocytes # Eosinophils # Basophils # PT 13.2 H INR 1.2 APTT 25.5 L Sodium 143 Potassium 3.5 Chloride 115 H Carbon Dioxide 20 L BUN 16 Creatinine 0.82 Est GFR ( Amer) > 60 Est GFR (Non-Af Amer) > 60 BUN/Creatinine Ratio 20 Glucose 120 H POC Glucose 104 H Calculated Osmolality 298 Calcium 8.3 L Iron 18 L % Saturation 9 L Transferrin 150 L Ferritin 229 Nasal Screen MRSA (PCR) Rheumatoid Factor Cultures: Cultures 08/03/17 11:08 Blood Culture - Preliminary Peripheral Venipuncture Gram Positive Cocci 08/03/17 10:24 Blood Culture - Preliminary Peripheral Venipuncture Gram Positive Cocci Serology 08/04/17 08/03/17 08/03/17 Range/Units 12:30 17:40 11:54 Nasal Screen MRSA (PCR) Negative Negative (Negative) Stool Occult Blood Positive A (Negative) 08/02/17 Range/Units 07:00 Nasal Screen MRSA (PCR) Negative (Negative) Stool Occult Blood (Negative) Exam - Constitutional Vitals: Temp Pulse Resp BP Pulse Ox 98.7 F 93 18 148/57 93 08/05/17 07:11 08/05/17 07:11 08/05/17 07:11 08/05/17 07:11 08/05/17 08:00 - Head Head exam: Present: atraumatic, normal inspection, normocephalic - Eye Eye exam: Present: EOMI, normal appearance, PERRL Pupils: Present: normal accommodation Additional comments: No subconjunctival hemorrhage noted. - ENT ENT exam: Present: mucous membranes moist - Neck Neck exam: Present: normal inspection - Respiratory Respiratory exam: Present: CTAB. Absent: rales, respiratory distress, rhonchi, wheezes - Cardiovascular Cardiovascular exam: Present: RRR, +S1, +S2 - GI/Abdominal GI/Abdominal exam: Present: normal bowel sounds, soft. Absent: distended, tenderness - Extremities Exam Extremities exam: Present: normal inspection. Absent: joint swelling, pedal edema, tenderness - Back Exam Back exam: Present: normal inspection. Absent: CVA tenderness (L), CVA tenderness (R), vertebral tenderness - Neurological Exam Neurological exam: Present: alert, oriented X3, no focal deficits - Psychiatric Psychiatric exam: Present: normal affect, normal mood - Skin Skin exam: Present: dry, intact, normal color, warm Additional comments: No endocarditis stigmata noted. - VTE Documentation of Mechanical Device: Intermittent pneumatic compression device Consult Discharge Plan - Plan Referrals: Alejandra Figueroa, SALES AND MANAGEMENT TRAINEE [Advanced Practice Nurse] - 08/25/17 9:20 am Miguel Ayala MD [Primary Care Provider] - 08/14/17 10:15 am Prescriptions: Ampicillin 12 gm IV Q24H #28 vial
[2017-08-05] MEDS ORDERED: *HR* Propofol 200 MG/20 ML VIAL IVP ONE (13:43)
--- NOTE | 2017-08-05 14:31 | Anesthesia Evaluation PreOp ---
Date of Encounter: 08/05/17 Time of Encounter: 14:28 - Past History Planned Operation: EGD Cardiac History: HTN, Hyperlipidemia, Arrhythmia (afib off xarelto since 08/02/17) , Cardiac Surgery (s/p TAVR 2016), Pacemaker/ICD (pacemaker), Other (Impressions : LVEF 65%. Indeterminate diastolic function. Normal right ventricular structure and function. Severely dilated left atrium. Mild mitral regurgitation. Bioprosthetic valve demonstrates normal function by Doppler. Moderate pulmonary hypertension. 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 History: Denies Any Significant HX Other Medical History: Renal (Bladder tumor s/p resection), Other (anemia) Anesthesia History: No Prior Anesthetic Complications (appy, jacob, pacer) Alcohol Use: none Drug use: none Medications and Allergies Aspirin [Lo-Dose Aspirin EC] 81 mg PO DAILY 08/02/17 [History] Calcium Carbonate [Calcium] 1,200 mg PO DAILY 08/02/17 [History] Cetirizine HCl [Cetirizine HCl] 10 mg PO DAILY 08/02/17 [History] Diltiazem HCl [Diltiazem ER] 120 mg PO DAILY 08/02/17 [History] Finasteride [Proscar] 5 mg PO DAILY 08/02/17 [History] Lutein Extract/Zeaxanthin Ext [Lutein 15 mg Softgel] 1 cap PO DAILY 08/02/17 [ History] Olmesartan/Hydrochlorothiazide [Olmesartan-Hctz 20-12.5 mg Tab] 1 tab PO DAILY 08/02/17 [History] Rivaroxaban [Xarelto] 20 mg PO DAILY 08/02/17 [History] Simvastatin [Zocor] 10 mg PO DAILY 08/02/17 [History] Tamsulosin [Flomax] 0.4 mg PO DAILY 08/02/17 [History] 3 Allergy/AdvReac Type Severity Reaction Status Date / Time No Known Allergies Allergy Verified 08/01/17 23:21 - Meds/Allergy Pre-op Review Medications Reviewed: Yes Allergies Reviewed: Yes Beta Blockers on Current Med List: No Anesthesia Results - Labs 08/05/17 04:00 08/05/17 04:00 - Imaging EKG: report reviewed (afib) Anesthesia Exam Vital Signs/O2 Sat, Most Current Temp Pulse Resp BP Pulse Ox 97.6 F 79 16 152/84 95 08/05/17 13:59 08/05/17 13:59 08/05/17 13:59 08/05/17 13:59 08/05/17 13:59 Weight: 92kg NPO (# of Hours): >8 - HEENT Pupil (Motor): Pupils equal, EOMI Mallampati: III Teeth: Prosthesis - SENIOR EXECUTIVE COMPENSATION ANALYST LOC: Oriented SENIOR EXECUTIVE COMPENSATION ANALYST Motor: Normal RUE, Normal LUE, Normal RLE, Normal LLE, Normal Face SENIOR EXECUTIVE COMPENSATION ANALYST Sensory: Normal: RUE, LUE, RLE, LLE, Face - Cardiac Rhythm: Regular - Pulmonary Breath Sounds: bilateral Clear Respiratory Effort: Symmetrical Anesthesia Assess/Plan ASA Score: 3 Modified [place] Scale for Level of Consciousness: Cooperative, oriented, and tranquil Anesthetic Plan: MAC Monitoring Plan: Standard Monitors Recovery Plan: PACU
[2017-08-05] MEDS ORDERED: SODIUM CHLORIDE/NAHCO3/KCL/PEG 4,000 ML SOLN.RECON PO ONE (17:00)
[2017-08-05] MEDS: Pantoprazole 40 MG VIAL IVP SCH (17:40)
--- NOTE | 2017-08-05 17:42 | Anesthesia Evaluation Post Op ---
Date of Encounter: 08/05/17 Time of Encounter: 17:41 - Vital Signs Vital Signs: Vital Signs/O2 Sat, Most Current Temp Pulse Resp BP Pulse Ox 98.5 F 81 18 157/81 94 08/05/17 15:49 08/05/17 16:39 08/05/17 16:39 08/05/17 16:39 08/05/17 16:39 - Lungs Lungs: Clear Ascult./Percussion - Airway Airway: Non-obstructed - Cardiovascular Baseline Rhythm - Mental Status Mental Status: Alert & Oriented, Answers Appropriately, Baseline Status - Pain Pain Scale: 0 Pain Scale used: Numeric (1 - 10) - Nausea Vomiting Nausea Vomiting: Not Present - Hydration Hydration: NPO - Discharge PostOp Status: Transfer Patient to floor
[2017-08-06] MEDS: Ampicillin 2 GM in 0.9 % Sodium Chloride Mini Bag 100 ML IVPB SCH ×7 (01:11→23:55)
[2017-08-06] MEDS: Pantoprazole 40 MG VIAL IVP SCH ×2 (05:46→16:59)
[2017-08-06 06:22] LABS: Basophils % 0.5 %; Eosinophils # 0.2 K/mcL (0.0-0.6); Eosinophils % 3.2 %; Hematocrit 27.5 % (37.5-50.1); Immature Granulocytes % 0.6 % (0-4); Lymphocytes # 1.1 K/mcL (0.6-4.6); Lymphocytes % 17.2 %; Mean Corpuscular HGB Conc 32.7 g/dL (31.6-35.5); Mean Corpuscular Hemoglobin 28.5 pg (28.0-33.3); Mean Platelet Volume 11.1 fL (9.4-12.4); Monocytes # 0.8 K/mcL (0.0-1.3); Monocytes % 11.5 %; Neutrophils # 4.5 K/mcL (1.6-8.9); Platelet Count 212 K/mcL (140-400); Red Blood Count 3.16 M/mcL (4.19-5.50); Red Cell Distribution Width 15.9 % (11.5-14.5)
[2017-08-06 07:46] LABS: BUN/Creatinine Ratio 13 (6-26); Blood Urea Nitrogen 10 mg/dL (8-23); Calcium 8.6 mg/dL (8.6-10.3); Carbon Dioxide 23 mEq/L (23-29); Chloride 113 mEq/L (98-107); Glucose 101 mg/dL (70-105); Osmolality,Calculated 297 (280-300); Potassium 3.4 mEq/L (3.5-5.1); Sodium 144 mEq/L (136-145); eGFR For African Americans > 60 (> 60); eGFR For Non-African Americans > 60 (> 60)
[2017-08-06] MEDS: Finasteride 5 MG TABLET PO SCH (08:53)
[2017-08-06] MEDS: Diltiazem CD (24hr) 180 MG CAPSULE PO SCH (08:53)
[2017-08-06] MEDS: Lactobacillus 1 EACH CAP.SPRINK PO SCH ×2 (08:53→20:50)
[2017-08-06] MEDS: Fluconazole 200 MG/100 ML 200 MG/100 ML BAG IVPB SCH (08:54)
[2017-08-06] MEDS: LUTEIN PO SCH (08:55)
[2017-08-06] MEDS ORDERED: *HR* FentaNYL (PF) 100 MCG/2 ML VIAL IVP PRN (10:38)
[2017-08-06] MEDS ORDERED: Tetracaine/Benzocaine/Butamben 200MG/SPRAY (100SPY/BOT) MM ONE (10:39)
[2017-08-06] MEDS ORDERED: 0.9 % Sodium Chloride 500 ML IVC ONE (10:39)
[2017-08-06] MEDS: *HR* Midazolam HCl 5 MG/5 ML VIAL IVP PRN ×2 (11:35→11:40)
[2017-08-06] MEDS ORDERED: Propofol 500 MG/50 ML INFUS..BTL ONE (12:58)
[2017-08-06] MEDS ORDERED: *HR* Phenylephrine 10 MG/ML VIAL ONE (12:59)
--- NOTE | 2017-08-06 13:28 | Infectious Disease Progress No ---
Date of Encounter: 08/06/17 Time of Encounter: 13:26 - Assessment and Plan (1) Sepsis Current Visit: Yes Status: Acute The patient had two SIRS criteria on admission. Likely secondary to bacteremia and UTI. Improved. WBC normal. Fever and tachycardia have resolved. Blood cultures drawn 08/02/17 are positive 2/2 sets for Enterococcus faecalis. Repeat blood cultures drawn 08/03/17 are positive 2/2 sets as well. Repeat blood cultures x 2 sets drawn 08/05/17 are pending. Qualifiers: Qualified Code(s): A41.9 - Sepsis, unspecified organism (2) Bacteremia Current Visit: Yes Status: Acute Causative organism: Enteroccocus faecalis. Source: Likely the urine, but urine culture was negative despite pyruia on UA. Blood cultures drawn 08/02/17 are positive 2/2 sets. Repeat blood cultures drawn 08/03/17 are positive 2/2 as well. Repeat blood cultures drawn 08/05/17 are pending. Complicated due to the presence of pacemaker, bioprosthetic aortic valve, and bilateral knee hardware. No endocarditis stigmata noted. The patient has one major and one minor Modified Nur's Criteria. TTE done during previous hospitalization in June was negative, but at that time the patient did not have bacteremia. TTE negative for vegetations. Will need LUIGI prior to discharge. Rheumatoid factor normal. Continue ampicillin 2 grams IV Q4H. Await repeat cultures. Duration of treatment depends on the clinical picture, but likely 4 weeks. Consult addiction social worker to assist with discharge planning. Monitor renal function and for drug toxicity and dose-adjust antibiotics. Avoid insertion of central venous access until blood cultures are negative x 48 hours. (3) UTI (urinary tract infection) Current Visit: Yes Status: Acute Causative organism unclear. Urinalysis positive for pyuria and yeast, but no culture was sent. Urine culture negative, but high index of suspicion for infection given the clinical picture and urinalysis findings. Continue antibiotics as above. Continue fluconazole 200mg IV daily (day 4). Cr Cl ~52. Baseline LFTs normal. Duration of treatment depends on the clinical picture. Continue fluconazole x 7 days. Can switch to PO if ready for discharge prior to completion. Will need a prolonged course of ampicillin due to bacteremia. Monitor renal and liver function and for drug toxicity and dose-adjust antibiotics. Qualifiers: Qualified Code(s): N39.0 - Urinary tract infection, site not specified; R31.9 - Hematuria, unspecified; R31.9 - Hematuria, unspecified (4) Thrombocytopenia Current Visit: Yes Status: Resolved Likely multifactorial: sepsis + recent use of linezolid. No acute bleeding noted on exam. Resolved. Continue to trend. Management per the primary team. (5) Atrial fibrillation with RVR Current Visit: Yes Status: Acute Chronic A-fib with RVR likely secondary to sepsis. Rate-controlled. Management per the primary team. (6) Anemia Current Visit: Yes Status: Acute Hgb improved slightly improved to 9 this morning. No acute bleeding noted on exam, but FOBT positive. Xarelto on hold. GI consulted. EGD negative. C-scope pending. Continue to trend. Further workup and management per the primary team. Qualifiers: Qualified Code(s): D64.89 - Other specified anemias (7) History of MRSA infection Current Visit: Yes Status: Resolved 07/12/17 urine culture positive for MRSA at OSH. Treated with course of PO linezolid. MRSA screen negative. (8) Pacemaker Current Visit: Yes Status: Acute Status post pacemaker placement in 2016. Insertion site well-healed without evidence of infection. TTE negative for vegetations. Recommend LUIGI prior to discharge. (9) Status post transcatheter aortic valve replacement Current Visit: Yes Status: Acute January 2017. Bioprosthetic valve. (10) HTN (hypertension) Current Visit: Yes Status: Chronic Qualifiers: Qualified Code(s): I10 - Essential (primary) hypertension (11) Bladder cancer Current Visit: Yes Status: Acute Diagnosed in May 2017. Status post cystoscopy with resection of the bladder tumor. Per patient's , they were able to resect the entire tumor and patient needs repeat imaging in three months. No chemo/radiation planned at this point. Qualifiers: Qualified Code(s): C67.9 - Malignant neoplasm of bladder, unspecified (12) Diarrhea Current Visit: Yes Status: Resolved Likely secondary to antibiotics. C. diff negative. Start probiotics. Qualifiers: Qualified Code(s): R19.7 - Diarrhea, unspecified (13) GI bleed Current Visit: Yes Status: Acute Anemic with positive FOBT. EGD negative for bleeding. C-scop planned for today. Await findings. Qualifiers: Qualified Code(s): K92.2 - Gastrointestinal hemorrhage, unspecified - Subjective Interval history: Patient seen and examined. No acute events noted overnight. Patient sitting up on the side of the bed. Denies fevers, chills, rigors. Denies chest pain or cough or shortness of breath. Denies nausea, vomiting, or constipation. Reports liquid stools due to bowel prep for C-scope today. Denies urinary complaints, or abdominal pain. States he is NPO and would like to have something to drink, but he is not hungry. Denies oral thrush or new skin lesions. Infect Dis PN-Objective Data - Labs CBC & Chem 7: 08/10/17 05:52 08/10/17 05:52 Labs: Laboratory Results - last 24 hr 08/05/17 08/06/17 08/06/17 13:32 05:19 05:46 WBC 6.6 RBC 3.16 L Hgb 9.0 L Hct 27.5 L MCV 87.0 MCH 28.5 MCHC 32.7 RDW 15.9 H Plt Count 212 D MPV 11.1 Immature Gran % 0.6 Seg Neutrophils % 67.0 Lymphocytes % 17.2 Monocytes % 11.5 Eosinophils % 3.2 Basophils % 0.5 Neutrophils # 4.5 Lymphocytes # 1.1 Monocytes # 0.8 Eosinophils # 0.2 Basophils # 0.0 Sodium Potassium Chloride Carbon Dioxide BUN Creatinine Est GFR ( Amer) Est GFR (Non-Af Amer) BUN/Creatinine Ratio Glucose POC Glucose 88 Calculated Osmolality Calcium Stl C. diff Tox B Gene Negative Specimen Rejected 08/06/17 08/06/17 05:46 07:03 WBC RBC Hgb Hct MCV MCH MCHC RDW Plt Count MPV Immature Gran % Seg Neutrophils % Lymphocytes % Monocytes % Eosinophils % Basophils % Neutrophils # Lymphocytes # Monocytes # Eosinophils # Basophils # Sodium 144 Potassium 3.4 L Chloride 113 H Carbon Dioxide 23 BUN 10 Creatinine 0.77 Est GFR ( Amer) > 60 Est GFR (Non-Af Amer) > 60 BUN/Creatinine Ratio 13 Glucose 101 POC Glucose Calculated Osmolality 297 Calcium 8.6 Stl C. diff Tox B Gene Specimen Rejected Hemolyzed Cultures: Cultures 08/03/17 10:24 Blood Culture - Final Peripheral Venipuncture Enterococcus faecalis 08/03/17 11:08 Blood Culture - Preliminary Peripheral Venipuncture Gram Positive Cocci Serology 08/05/17 08/04/17 08/03/17 Range/Units 13:32 12:30 17:40 Nasal Screen MRSA (PCR) Negative (Negative) Stool Occult Blood Positive A (Negative) Stl C. diff Tox B Gene Negative (Negative) 08/03/17 08/02/17 Range/Units 11:54 07:00 Nasal Screen MRSA (PCR) Negative Negative (Negative) Stool Occult Blood (Negative) Stl C. diff Tox B Gene (Negative) Exam - Constitutional Vitals: Temp Pulse Resp BP Pulse Ox 97.8 F 87 16 154/96 97 08/06/17 10:56 08/06/17 10:56 08/06/17 10:56 08/06/17 10:56 08/06/17 10:56 General appearance: average body habitus, cooperative, no acute distress - Head Head exam: Present: atraumatic, normal inspection, normocephalic - Eye Eye exam: Present: EOMI, normal appearance, PERRL Pupils: Present: normal accommodation Additional comments: No subconjunctival hemorrhage noted. - ENT ENT exam: Present: mucous membranes moist - Neck Neck exam: Present: normal inspection - Respiratory Respiratory exam: Present: CTAB. Absent: rales, respiratory distress, rhonchi, wheezes - Cardiovascular Cardiovascular exam: Present: RRR, +S1, +S2 - GI/Abdominal GI/Abdominal exam: Present: normal bowel sounds, soft. Absent: distended, tenderness - Extremities Exam Extremities exam: Present: normal inspection. Absent: joint swelling, pedal edema, tenderness - Neurological Exam Neurological exam: Present: alert, oriented X3, no focal deficits - Psychiatric Psychiatric exam: Present: normal affect, normal mood - Skin Skin exam: Present: dry, intact, normal color, warm Additional comments: No endocarditis stigmata noted. - VTE Documentation of Mechanical Device: Graduated compression elastic hosiery Consult Discharge Plan - Plan Referrals: Alejandra Figueroa CNP [Advanced Practice Nurse] - 08/25/17 9:20 am Miguel Ayala MD [Primary Care Provider] - 08/14/17 10:15 am Prescriptions: Ampicillin 12 gm IV Q24H #28 vial
--- NOTE | 2017-08-06 18:59 | Internal Med Progress Note ---
Date of Encounter: 08/06/17 Time of Encounter: 14:00 - Assessment and plan (1) Atrial fibrillation with RVR Current Visit: Yes Status: Acute Assessment and plan: Patient remains in A. fib. Rate controlled at this time. Cardizem at 180mg Holding Xarelto due to anemia Cardiology did see patient recommending stopping Xarelto since patient has had 2 bleeding episodes while on this medication. Recommending initiating back on Coumadin once bleeding issues are resolved and cleared from a GI standpoint (2) UTI (urinary tract infection) Current Visit: Yes Status: Acute Assessment and plan: No fevers overnight, white count stable-urinalysis positive for pyuria and yeast-urine culture negative ID consulted appreciate recommendations- appears blood cultures show enterococcus faecalis sensitive to ampicillin-vancomycin discontinued per infectious disease and started on ampicillin monitor CBC Patient is on flucanazole day 4 ID recommending for 7 days-can switch to by mouth when ready for discharge if not completed.-Need to prolong ampicillin due to bacteremia Qualifiers: Urinary tract infection type: site unspecified Hematuria presence: with hematuria Qualified Code(s): N39.0 - Urinary tract infection, site not specified; R31.9 - Hematuria, unspecified; R31.9 - Hematuria, unspecified (3) Thrombocytopenia Current Visit: Yes Status: Acute Assessment and plan: Suspect rt sepsis- ID stopped linezolid dt thrombocytopenia-platelets have improved - will monitor Hemoglobin did drop however improved after transfusion-no active bleeding at this time-this has resolved we will continue to monitor (4) Sepsis Current Visit: Yes Status: Acute Assessment and plan: Patient had 2 SIRs criteria on admission likely secondary to bacteremia no fevers white count normal and UTI blood cultures drawn 08/02/17 are +2/2 for enterococcus- sensitivity to ampicillin. Vancomycin was stopped per infectious disease and ampicillin initiated. Repeat blood cultures drawn 08/03/17 are +2 out of 2 sets as well Repeat blood cultures 2 sets drawn 08/05/17 positive for gram-positive cocci notified infectious disease Qualifiers: Sepsis type: sepsis due to unspecified organism Qualified Code(s): A41.9 - Sepsis, unspecified organism (5) MRSA (methicillin resistant Staphylococcus aureus) infection Current Visit: Yes Status: Acute Assessment and plan: Previously MRSA bacteremia and cystitis. Completed treatment with Zyvox previously MRSA screen negative Awaiting records from OSH (6) HTN (hypertension) Current Visit: Yes Status: Chronic Assessment and plan: Blood pressure controlled. Continue Cardizem Qualifiers: Hypertension type: essential hypertension Qualified Code(s): I10 - Essential (primary) hypertension (7) Bladder cancer Current Visit: Yes Status: Acute Assessment and plan: Status post bladder tumor resection which was completed in [place]-has been experiencing recurrent bouts of infection. Follow up with urology in cancer center after discharge. Qualifiers: Bladder location: unspecified site Qualified Code(s): C67.9 - Malignant neoplasm of bladder, unspecified (8) Anemia Current Visit: Yes Status: Acute Assessment and plan: 1 patient's hemoglobin was 8.4 on admission and has trended downward he was 6.9 yesterday he was typed and crossed for 2 units and transfused of PRBCs. Hemoccult was positive. Patient has not had any past history of GI bleed. He has not had colonoscopy or EGD. He is on Xarelto which we have held at this time. has expressed that she does not want the patient back on Xarelto. Protonix IV Consult GI -EGD -08/05/2017 revealed a 2 mm mucosal nodule biopsies were taken Patient to undergo colonoscopy today-3 Estephania nonbleeding polyps found in the hepatic flexure removed a 6 mm nonbleeding polyp was found in the descending colon polyp with Estephania removed-3 mm nonbleeding polyp was found in the rectum polyp with Estephania removed 2 mm nonbleeding polyp was found in the transverse colon Estephania removed- diverticulosis in the sigmoid colon and internal hemorrhoids Qualifiers: Anemia type: other cause Other causes of anemia: other cause, not classified Qualified Code(s): D64.89 - Other specified anemias (9) Status post transcatheter aortic valve replacement Current Visit: Yes Status: Acute Assessment and plan: 1 TAVR completed in JAN 2017 [place] -he does have bacteremia TTE completed-evidence for endocarditis not visualized on this study. Platelets are improving Underwent LUIGI no evidence of endocarditis (10) Diarrhea Current Visit: Yes Status: Acute Assessment and plan: Patient had been experiencing loose stools C. difficile was negative-bowel movements have slowed Start probiotics Qualifiers: Diarrhea type: unspecified type Qualified Code(s): R19.7 - Diarrhea, unspecified (11) Bacteremia Current Visit: Yes Status: Acute Assessment and plan: Constant organism Enterococcus faecalis most likely from urine however urine cultures negative despite pyuria on UA Blood cultures drawn 08/03/79 are +2/2 sets Repeat blood cultures drawn 08/04/79 are positive 2/2 as well Repeat blood cultures drawn 08/05/17 gram-positive cocci-notified infectious disease 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 Patient underwent a LUIGI today which did not show any endocarditis We will continue with ampicillin 2 g IV every 4 hours per infectious disease recommendation (12) DVT prophylaxis Current Visit: Yes Status: Acute Assessment and plan: LEIDY dt Anemia - Time Spent With Patient Total time spent is greater than 50% in coordination of care (as documented) at patient's floor/unit and/or counseling patient: - Subjective Interval history: Patient seen and examined at bedside. Patient is receiving prep for colonoscopy scheduled later today. He did undergo his LUIGI tolerated well with no complications. I did speak an update the patient and son who is on the phone per speaker concerning treatment plan for the day both verbalized understanding. - Constitutional Vitals: Temp Pulse Resp BP Pulse Ox 97.6 F 65 16 124/77 97 08/06/17 14:46 08/06/17 14:46 08/06/17 14:46 08/06/17 14:46 08/06/17 14:46 General appearance: Present: cooperative, A&O X 3, no acute distress, answers questions appropriately - Head Head exam: Present: atraumatic, normocephalic - Eye Eye exam: Present: PERRL, conjuntiva pink, sclera anicteric Pupils: Present: PERRL - Neck Neck exam general surgery: Present: supple, trachea midline. Absent: lymphadenopathy - Respiratory Respiratory exam: Present: CTAB. Absent: accessory muscle use, rales, rhonchi, wheezes - Cardiovascular Cardiovascular exam: Present: RRR, +S1, +S2. Absent: diastolic murmur, gallop, rubs, systolic murmur - GI/Abdominal GI/Abdominal exam: Present: normal bowel sounds, soft, no peritoneal signs. Absent: distended, tenderness - Extremities Exam Extremities exam: Present: warm, radial pulses palpable and symmetrical. Absent : calf tenderness, cyanotic, pedal edema - Neurological Exam Neurological exam: Present: CN II-XII intact, oriented X3, no focal deficits. Absent: pronater drift, facial droop, speech deficit - Skin Skin exam: Present: dry, intact Internal Medicine: Result - Labs CBC & Chem 7: 08/06/17 05:46 08/06/17 07:03 Labs: Short CBC 08/06/17 Range/Units 05:46 WBC 6.6 (4.3-11.1) K/mcL Hgb 9.0 L (12.9-16.9) g/dL Hct 27.5 L (37.5-50.1) % Plt Count 212 D (140-400) K/mcL Neutrophils # 4.5 (1.6-8.9) K/mcL BMP 08/06/17 07:03 Sodium 144 Potassium 3.4 L Chloride 113 H Carbon Dioxide 23 BUN 10 Creatinine 0.77 Glucose 101 Calcium 8.6 - ABG Interpretation ABG results: PT/INR, D-dimer PT 13.2 Seconds (9.4-12.1) H 08/05/17 04:00 - VTE Documentation of Mechanical Device: Intermittent pneumatic compression device Consult Discharge Plan - Plan Referrals: Miguel Ayala MD [Primary Care Provider] -
[2017-08-07 01:07] LABS: Basophils % 0.5 %; Eosinophils # 0.3 K/mcL (0.0-0.6); Eosinophils % 4.8 %; Hematocrit 24.8 % (37.5-50.1); Hemoglobin 8.4 g/dL (12.9-16.9); Immature Granulocytes % 0.3 % (0-4); Lymphocytes # 1.1 K/mcL (0.6-4.6); Lymphocytes % 18.3 %; Mean Corpuscular HGB Conc 33.9 g/dL (31.6-35.5); Mean Corpuscular Hemoglobin 29.3 pg (28.0-33.3); Mean Corpuscular Volume 86.4 fL (83.0-100.0); Mean Platelet Volume 9.9 fL (9.4-12.4); Monocytes # 0.8 K/mcL (0.0-1.3); Neutrophils # 3.9 K/mcL (1.6-8.9); Platelet Count 266 K/mcL (140-400); Red Blood Count 2.87 M/mcL (4.19-5.50); Segmented Neutrophils % 63.1 %
[2017-08-07 01:25] LABS: BUN/Creatinine Ratio 12 (6-26); Blood Urea Nitrogen 10 mg/dL (8-23); Carbon Dioxide 21 mEq/L (23-29); Chloride 113 mEq/L (98-107); Glucose 126 mg/dL (70-105); Osmolality,Calculated 299 (280-300); Potassium 3.2 mEq/L (3.5-5.1); Sodium 144 mEq/L (136-145); eGFR For African Americans > 60 (> 60); eGFR For Non-African Americans > 60 (> 60)
[2017-08-07] MEDS: Ampicillin 2 GM in 0.9 % Sodium Chloride Mini Bag 100 ML IVPB SCH ×6 (03:22→23:52)
[2017-08-07] MEDS: Pantoprazole 40 MG VIAL IVP SCH ×2 (05:32→17:53)
[2017-08-07] MEDS: Lactobacillus 1 EACH CAP.SPRINK PO SCH ×2 (08:07→20:47)
[2017-08-07] MEDS: Diltiazem CD (24hr) 180 MG CAPSULE PO SCH (08:07)
[2017-08-07] MEDS: Finasteride 5 MG TABLET PO SCH (08:07)
[2017-08-07] MEDS: LUTEIN PO SCH (08:08)
[2017-08-07] MEDS: Fluconazole 200 MG/100 ML 200 MG/100 ML BAG IVPB SCH (09:41)
--- NOTE | 2017-08-07 11:16 | Infectious Disease Progress No ---
Date of Encounter: 08/07/17 Time of Encounter: 11:13 - Assessment and Plan (1) Sepsis Current Visit: Yes Status: Acute The patient had two SIRS criteria on admission. Likely secondary to bacteremia and UTI. Improved. WBC normal. Fever and tachycardia have resolved. Blood cultures drawn 08/02/17 are positive 2/2 sets for Enterococcus faecalis. Repeat blood cultures drawn 08/03/17 are positive 2/2 sets as well. Repeat blood cultures x 2 sets drawn 08/05/17 are positive 1/2 sets. Repeat blood cultures drawn 08/06/17 are pending x 2 sets. Qualifiers: Sepsis type: sepsis due to unspecified organism Qualified Code(s): A41.9 - Sepsis, unspecified organism (2) Bacteremia Current Visit: Yes Status: Acute Causative organism: Enteroccocus faecalis. Source: Likely the urine, but urine culture was negative despite pyruia on UA. Blood cultures drawn 08/02/17 are positive 2/2 sets. Repeat blood cultures drawn 08/03/17 are positive 2/2 as well. Repeat blood cultures drawn 08/05/17 are positive 1/2 sets. Additional blood cultures drawn 08/06/17 are pending x 2 sets. Complicated due to the presence of pacemaker, bioprosthetic aortic valve, and bilateral knee hardware. No endocarditis stigmata noted. The patient has one major and one minor Modified Nur's Criteria. TTE done during previous hospitalization in June was negative, but at that time the patient did not have bacteremia. TTE and LUIGI negative. Rheumatoid factor normal. Continue ampicillin 2 grams IV Q4H. Await repeat cultures. Duration of treatment depends on the clinical picture, but likely 4 weeks. Consult social worker delinquency prevention to assist with discharge planning. Monitor renal function and for drug toxicity and dose-adjust antibiotics. Avoid insertion of central venous access until blood cultures are negative x 48 hours. (3) UTI (urinary tract infection) Current Visit: Yes Status: Acute Causative organism unclear. Urinalysis positive for pyuria and yeast, but no culture was sent. Urine culture negative, but high index of suspicion for infection given the clinical picture and urinalysis findings. Continue antibiotics as above. Continue fluconazole 200mg IV daily (day 5). Cr Cl ~52. Baseline LFTs normal. Duration of treatment depends on the clinical picture. Continue fluconazole x 7 days. Can switch to PO if ready for discharge prior to completion. Will need a prolonged course of ampicillin due to bacteremia. Monitor renal and liver function and for drug toxicity and dose-adjust antibiotics. Qualifiers: Urinary tract infection type: site unspecified Hematuria presence: with hematuria Qualified Code(s): N39.0 - Urinary tract infection, site not specified; R31.9 - Hematuria, unspecified; R31.9 - Hematuria, unspecified (4) Thrombocytopenia Current Visit: Yes Status: Resolved Likely multifactorial: sepsis + recent use of linezolid. No acute bleeding noted on exam. Resolved. Continue to trend. Management per the primary team. (5) Atrial fibrillation with RVR Current Visit: Yes Status: Acute Chronic A-fib with RVR likely secondary to sepsis. Rate-controlled. Management per the primary team. (6) Anemia Current Visit: Yes Status: Acute Hgb improved slightly improved to 9 this morning. No acute bleeding noted on exam, but FOBT positive. Xarelto on hold. GI consulted. EGD negative. C-scope negative. Continue to trend. Further workup and management per the primary team. Qualifiers: Anemia type: other cause Other causes of anemia: other cause, not classified Qualified Code(s): D64.89 - Other specified anemias (7) History of MRSA infection Current Visit: Yes Status: Acute 07/12/17 urine culture positive for MRSA at OSH. Treated with course of PO linezolid. MRSA screen negative. (8) Pacemaker Current Visit: Yes Status: Acute Status post pacemaker placement in 2016. Insertion site well-healed without evidence of infection. LUIGI negative for vegetations. (9) Status post transcatheter aortic valve replacement Current Visit: Yes Status: Acute January 2017. Bioprosthetic valve. (10) HTN (hypertension) Current Visit: Yes Status: Chronic Qualifiers: Hypertension type: essential hypertension Qualified Code(s): I10 - Essential (primary) hypertension (11) Bladder cancer Current Visit: Yes Status: Acute Diagnosed in May 2017. Status post cystoscopy with resection of the bladder tumor. Per patient's , they were able to resect the entire tumor and patient needs repeat imaging in three months. No chemo/radiation planned at this point. Qualifiers: Bladder location: unspecified site Qualified Code(s): C67.9 - Malignant neoplasm of bladder, unspecified (12) Diarrhea Current Visit: Yes Status: Acute Likely secondary to antibiotics. C. diff negative. Continue probiotics. Qualifiers: Diarrhea type: unspecified type Qualified Code(s): R19.7 - Diarrhea, unspecified (13) GI bleed Current Visit: Yes Status: Acute Anemic with positive FOBT. EGD negative for bleeding. C-scope negative. Qualifiers: GI bleed type/associated pathology: unspecified gastrointestinal hemorrhage type Qualified Code(s): K92.2 - Gastrointestinal hemorrhage, unspecified - Subjective Interval history: Patient seen and examined. No acute events noted overnight. Patient lying in bed with at bedside. States overall he feels okay. Denies fevers, chills, rigors. Denies chest pain or cough. Reports some dyspnea on exertion today. Denies nausea, vomiting, or constipation. Reports large diarrhea BM this morning. Denies urinary complaints, or abdominal pain. States his appetite is good and he ate most of his breakfast this morning. Denies oral thrush or new skin lesions. Infect Dis PN-Objective Data - Labs CBC & Chem 7: 08/07/17 00:29 08/07/17 00:29 Labs: Laboratory Results - last 24 hr 08/05/17 08/06/17 08/07/17 16:51 17:42 00:29 WBC 6.2 RBC 2.87 L Hgb 8.4 L Hct 24.8 L MCV 86.4 MCH 29.3 MCHC 33.9 RDW 16.0 H Plt Count 266 MPV 9.9 Immature Gran % 0.3 Seg Neutrophils % 63.1 Lymphocytes % 18.3 Monocytes % 13.0 Eosinophils % 4.8 Basophils % 0.5 Neutrophils # 3.9 Lymphocytes # 1.1 Monocytes # 0.8 Eosinophils # 0.3 Basophils # 0.0 Sodium Potassium Chloride Carbon Dioxide BUN Creatinine Est GFR ( Amer) Est GFR (Non-Af Amer) BUN/Creatinine Ratio Glucose POC Glucose 94 Calculated Osmolality Calcium Specimen Rejected Volume 08/07/17 00:29 WBC RBC Hgb Hct MCV MCH MCHC RDW Plt Count MPV Immature Gran % Seg Neutrophils % Lymphocytes % Monocytes % Eosinophils % Basophils % Neutrophils # Lymphocytes # Monocytes # Eosinophils # Basophils # Sodium 144 Potassium 3.2 L Chloride 113 H Carbon Dioxide 21 L BUN 10 Creatinine 0.81 Est GFR ( Amer) > 60 Est GFR (Non-Af Amer) > 60 BUN/Creatinine Ratio 12 Glucose 126 H POC Glucose Calculated Osmolality 299 Calcium 8.0 L Specimen Rejected Cultures: Cultures 08/05/17 11:25 Blood Culture - Preliminary Peripheral Venipuncture No growth. 08/03/17 11:08 Blood Culture - Final Peripheral Venipuncture Enterococcus faecalis 08/05/17 11:31 Blood Culture - Preliminary Peripheral Venipuncture Gram Positive Cocci 08/03/17 10:24 Blood Culture - Final Peripheral Venipuncture Enterococcus faecalis Serology 08/05/17 08/04/17 08/03/17 Range/Units 13:32 12:30 17:40 Nasal Screen MRSA (PCR) Negative (Negative) Stool Occult Blood Positive A (Negative) Stl C. diff Tox B Gene Negative (Negative) 08/03/17 08/02/17 Range/Units 11:54 07:00 Nasal Screen MRSA (PCR) Negative Negative (Negative) Stool Occult Blood (Negative) Stl C. diff Tox B Gene (Negative) Exam - Constitutional Vitals: Temp Pulse Resp BP Pulse Ox 97.8 F 77 15 134/80 96 08/07/17 10:28 08/07/17 10:28 08/07/17 10:28 08/07/17 10:28 08/07/17 10:28 General appearance: average body habitus, cooperative, no acute distress - Head Head exam: Present: atraumatic, normal inspection, normocephalic - Eye Eye exam: Present: EOMI, normal appearance, PERRL Pupils: Present: normal accommodation - ENT ENT exam: Present: mucous membranes moist - Neck Neck exam: Present: normal inspection - Respiratory Respiratory exam: Present: CTAB. Absent: rales, respiratory distress, rhonchi, wheezes - Cardiovascular Cardiovascular exam: Present: irregular rhythm, +S1, +S2. Absent: tachycardia - GI/Abdominal GI/Abdominal exam: Present: normal bowel sounds, soft. Absent: distended, tenderness - Extremities Exam Extremities exam: Present: normal inspection. Absent: joint swelling, pedal edema, tenderness - Neurological Exam Neurological exam: Present: alert, oriented X3, no focal deficits - Psychiatric Psychiatric exam: Present: normal affect, normal mood - Skin Skin exam: Present: dry, intact, normal color, warm - VTE Documentation of Mechanical Device: Graduated compression elastic hosiery Consult Discharge Plan - Plan Referrals: Miguel Ayala MD [Primary Care Provider] -
[2017-08-07] MEDS ORDERED: Furosemide 20 MG/2 ML VIAL IVP ONE (17:51)
--- NOTE | 2017-08-07 17:54 | Internal Med Progress Note ---
Date of Encounter: 08/07/17 Time of Encounter: 13:00 - Assessment and plan (1) Atrial fibrillation with RVR Current Visit: Yes Status: Acute Assessment and plan: Patient remains in A. fib. Rate controlled at this time. Cardizem at 180mg Holding Xarelto due to anemia Cardiology did see patient recommending stopping Xarelto since patient has had 2 bleeding episodes while on this medication. Recommending initiating back on Coumadin once bleeding issues are resolved and cleared from a GI standpoint. I did speak with Dr. Perrin who states it is okay to resume anticoagulation (2) UTI (urinary tract infection) Current Visit: Yes Status: Acute Assessment and plan: No fevers overnight, white count stable-urinalysis positive for pyuria and yeast-urine culture negative ID consulted appreciate recommendations- appears blood cultures show enterococcus faecalis sensitive to ampicillin-vancomycin discontinued per infectious disease and started on ampicillin monitor CBC Patient is on flucanazole day 5 ID recommending for 7 days-can switch to by mouth when ready for discharge if not completed.-Need to prolong ampicillin due to bacteremia Qualifiers: Urinary tract infection type: site unspecified Hematuria presence: with hematuria Qualified Code(s): N39.0 - Urinary tract infection, site not specified; R31.9 - Hematuria, unspecified; R31.9 - Hematuria, unspecified (3) Thrombocytopenia Current Visit: Yes Status: Resolved Assessment and plan: Resolve Suspect rt sepsis- ID stopped linezolid dt thrombocytopenia-- will monitor (4) Sepsis Current Visit: Yes Status: Acute Assessment and plan: Patient had 2 SIRs criteria on admission likely secondary to bacteremia no fevers white count normal and UTI blood cultures drawn 08/02/17 are +2/2 for enterococcus- sensitivity to ampicillin. Vancomycin was stopped per infectious disease and ampicillin initiated. Repeat blood cultures drawn 08/03/17 are +2 out of 2 sets as well Repeat blood cultures 2 sets drawn 08/05/17 positive for gram-positive cocci notified infectious disease-spoke with ID concerning blood culture results no change in antibiotics- did draw 2 more blood cultures today Qualifiers: Sepsis type: sepsis due to unspecified organism Qualified Code(s): A41.9 - Sepsis, unspecified organism (5) MRSA (methicillin resistant Staphylococcus aureus) infection Current Visit: Yes Status: Acute Assessment and plan: Previously MRSA bacteremia and cystitis. Completed treatment with Zyvox previously MRSA screen negative Awaiting records from OSH (6) HTN (hypertension) Current Visit: Yes Status: Chronic Assessment and plan: Blood pressure controlled. Continue Cardizem Qualifiers: Hypertension type: essential hypertension Qualified Code(s): I10 - Essential (primary) hypertension (7) Bladder cancer Current Visit: Yes Status: Acute Assessment and plan: Status post bladder tumor resection which was completed in [place]-has been experiencing recurrent bouts of infection. Follow up with urology in cancer center after discharge. Qualifiers: Bladder location: unspecified site Qualified Code(s): C67.9 - Malignant neoplasm of bladder, unspecified (8) Anemia Current Visit: Yes Status: Acute Assessment and plan: 1 patient's hemoglobin was 8.4 on admission and has trended downward he was 6.9 he was typed and crossed for 2 units and transfused of PRBCs. Hemoccult was positive. Patient has not had any past history of GI bleed. He has not had colonoscopy or EGD. He was on Xarelto which we have stopped at this time. Did speak with GI concerning restarting anticoagulation-okay to start Coumadin per GI Protonix IV Consult GI -EGD -08/05/2017 revealed a 2 mm mucosal nodule biopsies were taken Patient to undergo colonoscopy today-3 Estephania nonbleeding polyps found in the hepatic flexure removed a 6 mm nonbleeding polyp was found in the descending colon polyp with Estephania removed-3 mm nonbleeding polyp was found in the rectum polyp with Estephania removed 2 mm nonbleeding polyp was found in the transverse colon Estephania removed- diverticulosis in the sigmoid colon and internal hemorrhoids Qualifiers: Anemia type: other cause Other causes of anemia: other cause, not classified Qualified Code(s): D64.89 - Other specified anemias (9) Status post transcatheter aortic valve replacement Current Visit: Yes Status: Acute Assessment and plan: 1 TAVR completed in JAN 2017 [place] -he does have bacteremia TTE completed-no evidence for endocarditis visualized on this study. Underwent LUIGI no evidence of endocarditis (10) Diarrhea Current Visit: Yes Status: Acute Assessment and plan: Improved -no stools today C. difficile was negative- Start probiotics Qualifiers: Diarrhea type: unspecified type Qualified Code(s): R19.7 - Diarrhea, unspecified (11) Bacteremia Current Visit: Yes Status: Acute Assessment and plan: Constant organism Enterococcus faecalis most likely from urine however urine cultures negative despite pyuria on UA Blood cultures drawn 08/03/79 are +2/2 sets Repeat blood cultures drawn 08/04/79 are positive 2/2 as well Repeat blood cultures drawn 08/05/17 gram-positive cocci-spoke with infectious disease no change in antibiotics they did draw new sets of blood cultures today 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 Patient underwent a LUIGI which did not show any endocarditis We will continue with ampicillin 2 g IV every 4 hours per infectious disease recommendation (12) Fluid excess Current Visit: Yes Status: Acute Assessment and plan: 1 patient appears to be fluid overloaded. He has generalized swelling-appears to be third spacing. His lung sounds are clear however he does complain of some shortness of breath on exertion. Sats are stable at this time. We will give a dose of Lasix and monitor Qualifiers: Hypervolemia type: transfusion-associated Qualified Code(s): E87.71 - Transfusion associated circulatory overload (13) Hypokalemia Current Visit: Yes Status: Acute Assessment and plan: 1 potassium is 3.2 this a.m. suspect related to fluid loss from bowel prep we did give 20 of KCl orally. I will give another dose this evening since patient will be receiving Lasix. We will recheck in the a.m. (14) DVT prophylaxis Current Visit: Yes Status: Acute Assessment and plan: GI okayed for anticoagulation. Patient will be initiated on Lovenox and bridged over to Coumadin - Time Spent With Patient Total time spent is greater than 50% in coordination of care (as documented) at patient's floor/unit and/or counseling patient: - Subjective Interval history: Patient seen and examined at bedside. The patient is sitting aside of bed states he does feel well today however family and patient to express concern about lower extremity swelling and hand swelling. Patient also expresses that he gets short of breath on exertion. His lung sounds are clear sats are stable. Informed patient we will give him 1 dose of Lasix to see if improves swelling and shortness of breath. - Constitutional Vitals: Temp Pulse Resp BP Pulse Ox 97.6 F 77 15 136/80 96 08/07/17 15:13 08/07/17 15:13 08/07/17 15:13 08/07/17 15:13 08/07/17 15:13 General appearance: Present: cooperative, A&O X 3, no acute distress, answers questions appropriately - Head Head exam: Present: atraumatic, normocephalic - Eye Eye exam: Present: PERRL, conjuntiva pink, sclera anicteric Pupils: Present: PERRL - Neck Neck exam general surgery: Present: supple, trachea midline. Absent: lymphadenopathy - Respiratory Respiratory exam: Present: CTAB. Absent: accessory muscle use, rales, rhonchi, wheezes - Cardiovascular Cardiovascular exam: Present: RRR, +S1, +S2. Absent: diastolic murmur, gallop, rubs, systolic murmur - GI/Abdominal GI/Abdominal exam: Present: normal bowel sounds, soft, no peritoneal signs. Absent: distended, tenderness - Extremities Exam Extremities exam: Present: pedal edema, warm, radial pulses palpable and symmetrical. Absent: calf tenderness, cyanotic - Neurological Exam Neurological exam: Present: CN II-XII intact, oriented X3, no focal deficits. Absent: pronater drift, facial droop, speech deficit - Skin Skin exam: Present: dry, intact Internal Medicine: Result - Labs CBC & Chem 7: 08/07/17 00:29 08/07/17 00:29 Labs: Short CBC 08/07/17 Range/Units 00:29 WBC 6.2 (4.3-11.1) K/mcL Hgb 8.4 L (12.9-16.9) g/dL Hct 24.8 L (37.5-50.1) % Plt Count 266 (140-400) K/mcL Neutrophils # 3.9 (1.6-8.9) K/mcL BMP 08/07/17 00:29 Sodium 144 Potassium 3.2 L Chloride 113 H Carbon Dioxide 21 L BUN 10 Creatinine 0.81 Glucose 126 H Calcium 8.0 L - ABG Interpretation ABG results: PT/INR, D-dimer PT 13.2 Seconds (9.4-12.1) H 08/05/17 04:00 - VTE Documentation of Mechanical Device: Graduated compression elastic hosiery Consult Discharge Plan - Plan Referrals: Miguel Ayala MD [Primary Care Provider] - 08/14/17 10:15 am
[2017-08-07] MEDS ORDERED: *HR* Warfarin 2.5 MG TABLET PO ONE (18:17)
[2017-08-07] MEDS: *HR* Enoxaparin 100 MG/ML SYRINGE SQ SCH (18:35)
[2017-08-07] MEDS: Acetaminophen 325 MG TABLET PO PRN (19:38)
[2017-08-08] MEDS: Ampicillin 2 GM in 0.9 % Sodium Chloride Mini Bag 100 ML IVPB SCH ×5 (04:04→22:19)
[2017-08-08] MEDS: *HR* Enoxaparin 100 MG/ML SYRINGE SQ SCH ×2 (06:07→17:57)
[2017-08-08 06:36] LABS: INR 1.3; Prothrombin Time 14.1 Seconds (9.4-12.1)
[2017-08-08 06:48] LABS: BUN/Creatinine Ratio 9 (6-26); Blood Urea Nitrogen 8 mg/dL (8-23); Calcium 8.3 mg/dL (8.6-10.3); Carbon Dioxide 23 mEq/L (23-29); Chloride 113 mEq/L (98-107); Glucose 98 mg/dL (70-105); Osmolality,Calculated 300 (280-300); Potassium 3.3 mEq/L (3.5-5.1); Sodium 146 mEq/L (136-145); eGFR For African Americans > 60 (> 60); eGFR For Non-African Americans > 60 (> 60)
[2017-08-08 06:55] LABS: Basophils % 0.3 %; Eosinophils # 0.4 K/mcL (0.0-0.6); Eosinophils % 6.2 %; Hematocrit 27.5 % (37.5-50.1); Hemoglobin 8.9 g/dL (12.9-16.9); Immature Granulocytes % 0.5 % (0-4); Lymphocytes # 1.4 K/mcL (0.6-4.6); Lymphocytes % 22.6 %; Mean Corpuscular HGB Conc 32.4 g/dL (31.6-35.5); Mean Corpuscular Hemoglobin 28.3 pg (28.0-33.3); Mean Corpuscular Volume 87.3 fL (83.0-100.0); Mean Platelet Volume 10.2 fL (9.4-12.4); Monocytes # 0.6 K/mcL (0.0-1.3); Monocytes % 10.6 %; Neutrophils # 3.6 K/mcL (1.6-8.9); Platelet Count 321 K/mcL (140-400); Red Blood Count 3.15 M/mcL (4.19-5.50); Red Cell Distribution Width 16.7 % (11.5-14.5); Segmented Neutrophils % 59.8 %
[2017-08-08] MEDS: Pantoprazole 40 MG VIAL IVP SCH (09:29)
[2017-08-08] MEDS: Diltiazem CD (24hr) 180 MG CAPSULE PO SCH (09:30)
[2017-08-08] MEDS: Lactobacillus 1 EACH CAP.SPRINK PO SCH ×2 (09:30→22:19)
[2017-08-08] MEDS: Finasteride 5 MG TABLET PO SCH (09:30)
[2017-08-08] MEDS: Fluconazole 200 MG/100 ML 200 MG/100 ML BAG IVPB SCH (09:31)
--- NOTE | 2017-08-08 14:50 | Internal Med Progress Note ---
Date of Encounter: 08/08/17 Time of Encounter: 09:00 - Assessment and plan (1) Atrial fibrillation with RVR Current Visit: Yes Status: Acute Assessment and plan: Patient remains in A. fib. Rate controlled at this time. Cardizem at 180mg dc xarelto - start on lovenox and bridge onto coumadin Cardiology did see patient recommending stopping Xarelto since patient has had 2 bleeding episodes while on this medication. Recommending initiating back on Coumadin once bleeding issues are resolved and cleared from a GI standpoint. I did speak with Dr. Perrin who states it is okay to resume anticoagulation (2) UTI (urinary tract infection) Current Visit: Yes Status: Acute Assessment and plan: No fevers overnight, white count stable-urinalysis positive for pyuria and yeast-urine culture negative ID consulted appreciate recommendations- appears blood cultures show enterococcus faecalis sensitive to ampicillin-vancomycin discontinued per infectious disease and started on ampicillin monitor CBC Patient is on flucanazole day 5 ID recommending for 7 days-can switch to by mouth when ready for discharge if not completed.-Need to prolong ampicillin due to bacteremia Qualifiers: Urinary tract infection type: site unspecified Hematuria presence: with hematuria Qualified Code(s): N39.0 - Urinary tract infection, site not specified; R31.9 - Hematuria, unspecified; R31.9 - Hematuria, unspecified (3) Thrombocytopenia Current Visit: Yes Status: Resolved Assessment and plan: Resolve Suspect rt sepsis- ID stopped linezolid dt thrombocytopenia-- will monitor (4) Sepsis Current Visit: Yes Status: Acute Assessment and plan: Patient had 2 SIRs criteria on admission likely secondary to bacteremia no fevers white count normal and UTI blood cultures drawn 08/02/17 are +2/2 for enterococcus- sensitivity to ampicillin. Vancomycin was stopped per infectious disease and ampicillin initiated. Repeat blood cultures drawn 08/03/17 are +2 out of 2 sets as well Repeat blood cultures 2 sets drawn 08/05/17 positive for gram-positive cocci notified infectious disease-spoke with ID concerning blood culture results no change in antibiotics- did draw 2 more blood cultures- preliminary did show no growth Qualifiers: Sepsis type: sepsis due to unspecified organism Qualified Code(s): A41.9 - Sepsis, unspecified organism (5) MRSA (methicillin resistant Staphylococcus aureus) infection Current Visit: Yes Status: Acute Assessment and plan: Previously MRSA bacteremia and cystitis. Completed treatment with Zyvox previously MRSA screen negative (6) HTN (hypertension) Current Visit: Yes Status: Chronic Assessment and plan: Blood pressure controlled. Continue Cardizem Qualifiers: Hypertension type: essential hypertension Qualified Code(s): I10 - Essential (primary) hypertension (7) Bladder cancer Current Visit: Yes Status: Acute Assessment and plan: Status post bladder tumor resection which was completed in [place]-has been experiencing recurrent bouts of infection. Follow up with urology in cancer center after discharge. Qualifiers: Bladder location: unspecified site Qualified Code(s): C67.9 - Malignant neoplasm of bladder, unspecified (8) Anemia Current Visit: Yes Status: Acute Assessment and plan: 1 patient's hemoglobin was 8.4 on admission and has trended downward he was 6.9 he was typed and crossed for 2 units and transfused of PRBCs. Hemoccult was positive. Patient has not had any past history of GI bleed. He has not had colonoscopy or EGD. He was on Xarelto which we have stopped at this time. Did speak with GI concerning restarting anticoagulation-okay to start Coumadin per GI- intiated on coumadin lovenox bridge Protonix IV Consult GI -EGD -08/05/2017 revealed a 2 mm mucosal nodule biopsies were taken Patient to undergo colonoscopy today-3 Estephania nonbleeding polyps found in the hepatic flexure removed a 6 mm nonbleeding polyp was found in the descending colon polyp with Estephania removed-3 mm nonbleeding polyp was found in the rectum polyp with Estephania removed 2 mm nonbleeding polyp was found in the transverse colon Estephania removed- diverticulosis in the sigmoid colon and internal hemorrhoids Qualifiers: Anemia type: other cause Other causes of anemia: other cause, not classified Qualified Code(s): D64.89 - Other specified anemias (9) Status post transcatheter aortic valve replacement Current Visit: Yes Status: Acute Assessment and plan: 1 TAVR completed in JAN 2017 [place] -he does have bacteremia TTE completed-no evidence for endocarditis visualized on this study. Underwent LUIGI no evidence of endocarditis (10) Diarrhea Current Visit: Yes Status: Acute Assessment and plan: Resolved C. difficile was negative- Start probiotics Qualifiers: Diarrhea type: unspecified type Qualified Code(s): R19.7 - Diarrhea, unspecified (11) Bacteremia Current Visit: Yes Status: Acute Assessment and plan: organism Enterococcus faecalis most likely from urine however urine cultures negative despite pyuria on UA Blood cultures drawn 08/03/79 are +2/2 sets Repeat blood cultures drawn 08/04/79 are positive 2/2 as well Repeat blood cultures drawn 08/05/17 gram-positive cocci-spoke with infectious disease no change in antibiotics they did draw new sets of blood cultures- preliminary results are negative for growth 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 Patient underwent a LUIGI which did not show any endocarditis We will continue with ampicillin 2 g IV every 4 hours per infectious disease recommendation (12) Fluid excess Current Visit: Yes Status: Acute Assessment and plan: 1 patient appears to be fluid overloaded. He has generalized swelling-appears to be third spacing. His lung sounds are clear however he does complain of some shortness of breath on exertion. Obtain chest x-ray-did show small pleural effusion Lasix 40 mg IV Qualifiers: Hypervolemia type: transfusion-associated Qualified Code(s): E87.71 - Transfusion associated circulatory overload (13) Hypokalemia Current Visit: Yes Status: Acute Assessment and plan: 1 potassium 3.3 -replace, we will give IV Lasix will also give another dose of potassium this evening (14) DVT prophylaxis Current Visit: Yes Status: Acute Assessment and plan: GI okayed for anticoagulation. Patient will be initiated on Lovenox and bridged over to Coumadin continue with LEIDY hose - Time Spent With Patient Total time spent is greater than 50% in coordination of care (as documented) at patient's floor/unit and/or counseling patient: - Subjective Interval history: Patient seen and examined at bedside. I did update the patient and the family at bedside of the plan of care. Patient cont to have SOB on exertion and has lower extremity edema. We will check CXR - Constitutional Vitals: Temp Pulse Resp BP Pulse Ox 97.8 F 81 18 165/93 96 08/08/17 11:17 08/08/17 11:17 08/08/17 11:17 08/08/17 11:17 08/08/17 11:17 General appearance: Present: cooperative, A&O X 3, no acute distress, answers questions appropriately - Head Head exam: Present: atraumatic, normocephalic - Eye Eye exam: Present: PERRL, conjuntiva pink, sclera anicteric Pupils: Present: PERRL - Neck Neck exam general surgery: Present: supple, trachea midline. Absent: lymphadenopathy - Respiratory Respiratory exam: Present: decreased breath sounds. Absent: accessory muscle use, rales, rhonchi, wheezes - Cardiovascular Cardiovascular exam: Present: RRR, +S1, +S2. Absent: diastolic murmur, gallop, rubs, systolic murmur - GI/Abdominal GI/Abdominal exam: Present: normal bowel sounds, soft, no peritoneal signs. Absent: distended, tenderness - Extremities Exam Extremities exam: Present: warm, radial pulses palpable and symmetrical. Absent : calf tenderness, cyanotic, pedal edema - Neurological Exam Neurological exam: Present: CN II-XII intact, oriented X3, no focal deficits. Absent: pronater drift, facial droop, speech deficit - Skin Skin exam: Present: dry, intact Internal Medicine: Result - Labs CBC & Chem 7: 08/08/17 05:16 08/08/17 05:16 Labs: Short CBC 08/08/17 Range/Units 05:16 WBC 6.0 (4.3-11.1) K/mcL Hgb 8.9 L (12.9-16.9) g/dL Hct 27.5 L (37.5-50.1) % Plt Count 321 (140-400) K/mcL Neutrophils # 3.6 (1.6-8.9) K/mcL BMP 08/08/17 05:16 Sodium 146 H Potassium 3.3 L Chloride 113 H Carbon Dioxide 23 BUN 8 Creatinine 0.90 Glucose 98 Calcium 8.3 L - ABG Interpretation ABG results: PT/INR, D-dimer PT 14.1 Seconds (9.4-12.1) H 08/08/17 05:16 - VTE Documentation of Mechanical Device: Graduated compression elastic hosiery Consult Discharge Plan - Plan Referrals: Miguel Ayala MD [Primary Care Provider] - 08/14/17 10:15 am
[2017-08-08] MEDS ORDERED: Furosemide 40 MG/4 ML VIAL IVP ONE (14:56)
[2017-08-08] MEDS: LUTEIN PO SCH (17:56)
[2017-08-08] MEDS ORDERED: *HR* Warfarin 2.5 MG TABLET PO ONE (18:00)
[2017-08-08] MEDS ORDERED: Warfarin perPT PO PRN (18:00)
[2017-08-09] MEDS: Ampicillin 2 GM in 0.9 % Sodium Chloride Mini Bag 100 ML IVPB SCH ×6 (00:39→20:47)
[2017-08-09 04:42] LABS: INR 1.3; Prothrombin Time 14.6 Seconds (9.4-12.1)
[2017-08-09] MEDS: *HR* Enoxaparin 100 MG/ML SYRINGE SQ SCH (05:33)
[2017-08-09] MEDS: Diltiazem CD (24hr) 180 MG CAPSULE PO SCH (08:40)
[2017-08-09] MEDS: Lactobacillus 1 EACH CAP.SPRINK PO SCH ×2 (08:40→20:48)
[2017-08-09] MEDS: Pantoprazole 40 MG VIAL IVP SCH (08:40)
[2017-08-09] MEDS: Finasteride 5 MG TABLET PO SCH (08:40)
[2017-08-09] MEDS: Fluconazole 200 MG/100 ML 200 MG/100 ML BAG IVPB SCH (08:41)
[2017-08-09] MEDS: LUTEIN PO SCH (12:13)
--- NOTE | 2017-08-09 12:35 | Internal Med Progress Note ---
Date of Encounter: 08/09/17 Time of Encounter: 12:34 - Assessment and plan (1) Atrial fibrillation with RVR Current Visit: Yes Status: Acute Assessment and plan: Patient remains in A. fib. Rate controlled at this time. Cardizem at 180mg dc xarelto - start on lovenox and bridge onto coumadin Cardiology did see patient recommending stopping Xarelto since patient has had 2 bleeding episodes while on this medication. Patient is to be initiated on Eliquis. Patient originally placed on Coumadin. I did speak with Dr. Shah who advises to stop Coumadin check INR in the morning and then placed on Eliquis I did speak with Dr. Perrin who states it is okay to resume anticoagulation (2) UTI (urinary tract infection) Current Visit: Yes Status: Acute Assessment and plan: No fevers overnight, white count stable-urinalysis positive for pyuria and yeast-urine culture negative ID consulted appreciate recommendations- appears blood cultures show enterococcus faecalis sensitive to ampicillin-vancomycin discontinued per infectious disease and started on ampicillin monitor CBC Patient is on flucanazole day 6 ID recommending for 7 days-can switch to by mouth when ready for discharge if not completed.-Need to prolong ampicillin due to bacteremia Qualifiers: Urinary tract infection type: site unspecified Hematuria presence: with hematuria Qualified Code(s): N39.0 - Urinary tract infection, site not specified; R31.9 - Hematuria, unspecified; R31.9 - Hematuria, unspecified (3) Thrombocytopenia Current Visit: Yes Status: Resolved Assessment and plan: Resolve Suspect rt sepsis- ID stopped linezolid dt thrombocytopenia-- will monitor (4) Sepsis Current Visit: Yes Status: Acute Assessment and plan: Patient had 2 SIRs criteria on admission likely secondary to bacteremia no fevers white count normal and UTI blood cultures drawn 08/02/17 are +2/2 for enterococcus- sensitivity to ampicillin. Vancomycin was stopped per infectious disease and ampicillin initiated. Repeat blood cultures drawn 08/03/17 are +2 out of 2 sets as well Repeat blood cultures 2 sets drawn 08/05/17 positive for gram-positive cocci notified infectious disease-spoke with ID concerning blood culture results no change in antibiotics- did draw 2 more blood cultures- preliminary did show no growth He is stable at this time Qualifiers: Sepsis type: sepsis due to unspecified organism Qualified Code(s): A41.9 - Sepsis, unspecified organism (5) MRSA (methicillin resistant Staphylococcus aureus) infection Current Visit: Yes Status: Acute Assessment and plan: Previously MRSA bacteremia and cystitis. Completed treatment with Zyvox previously MRSA screen negative (6) HTN (hypertension) Current Visit: Yes Status: Chronic Assessment and plan: Blood pressure controlled. Continue Cardizem Qualifiers: Hypertension type: essential hypertension Qualified Code(s): I10 - Essential (primary) hypertension (7) Bladder cancer Current Visit: Yes Status: Acute Assessment and plan: Status post bladder tumor resection which was completed in [place]-has been experiencing recurrent bouts of infection. Follow up with urology in cancer center after discharge. Qualifiers: Bladder location: unspecified site Qualified Code(s): C67.9 - Malignant neoplasm of bladder, unspecified (8) Anemia Current Visit: Yes Status: Acute Assessment and plan: 1 patient's hemoglobin was 8.4 on admission and has trended downward he was 6.9 he was typed and crossed for 2 units and transfused of PRBCs. Hemoccult was positive. Patient has not had any past history of GI bleed. He has not had colonoscopy or EGD. He was on Xarelto which we have stopped at this time. Did speak with GI concerning restarting anticoagulation-okay to start Coumadin per GI- intiated on coumadin lovenox bridge Protonix IV Consult GI -EGD -08/05/2017 revealed a 2 mm mucosal nodule biopsies were taken Patient to undergo colonoscopy today-3 Estephania nonbleeding polyps found in the hepatic flexure removed a 6 mm nonbleeding polyp was found in the descending colon polyp with Estephania removed-3 mm nonbleeding polyp was found in the rectum polyp with Estephania removed 2 mm nonbleeding polyp was found in the transverse colon Estephania removed- diverticulosis in the sigmoid colon and internal hemorrhoids No bleeding at this time we will monitor for any bleeding awaiting lab results Qualifiers: Anemia type: other cause Other causes of anemia: other cause, not classified Qualified Code(s): D64.89 - Other specified anemias (9) Status post transcatheter aortic valve replacement Current Visit: Yes Status: Acute Assessment and plan: 1 TAVR completed in JAN 2017 [place] -he does have bacteremia TTE completed-no evidence for endocarditis visualized on this study. Underwent LUIGI no evidence of endocarditis (10) Diarrhea Current Visit: Yes Status: Acute Assessment and plan: Resolved C. difficile was negative- Continue probiotics Qualifiers: Diarrhea type: unspecified type Qualified Code(s): R19.7 - Diarrhea, unspecified (11) Bacteremia Current Visit: Yes Status: Acute Assessment and plan: organism Enterococcus faecalis most likely from urine however urine cultures negative despite pyuria on UA Blood cultures drawn 08/03/79 are +2/2 sets Repeat blood cultures drawn 08/04/79 are positive 2/2 as well Repeat blood cultures drawn 08/05/17 gram-positive cocci-spoke with infectious disease no change in antibiotics they did draw new sets of blood cultures- preliminary results are negative for growth 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 Patient underwent a LUIGI which did not show any endocarditis We will continue with ampicillin 2 g IV every 4 hours per infectious disease recommendation-we will continue with ID recommendations (12) Fluid excess Current Visit: Yes Status: Acute Assessment and plan: 1 patient appears much improved no shortness of breath swelling improved we will continue to monitor fluid status Monitor intake output daily weights Qualifiers: Hypervolemia type: transfusion-associated Qualified Code(s): E87.71 - Transfusion associated circulatory overload (13) Hypokalemia Current Visit: Yes Status: Acute Assessment and plan: 1 awaiting lab (14) DVT prophylaxis Current Visit: Yes Status: Acute Assessment and plan: GI okayed for anticoagulation. We will hold Coumadin overnight check INR in morning resume on Eliquis. Continue with SCD and LEIDY hose - Time Spent With Patient Total time spent is greater than 50% in coordination of care (as documented) at patient's floor/unit and/or counseling patient: - Subjective Interval history: Patient seen and examined at bedside. I did update the patient and the family at bedside of the plan of care. Shortness of breath has improved as well as swelling. Patient's son inquiring about why patient was initiated on Eliquis incentive Coumadin. Requesting to speak with Dr. Shah concerning this matter. States that he had a conversational Thursday with with Dr. Shah the Eliquis was more appropriate than Coumadin. I did review the notes with the son with the recommendations from cardiology of Coumadin. I informed and I will notify Dr. Shah. I did speak with Dr. Shah, apparently there was a miscommunication the patient is to be placed on Eliquis. We will hold stop Coumadin and check INR in the a.m. and then resume on Eliquis. Dr. Shah will speak with family - Constitutional Vitals: Temp Pulse Resp BP Pulse Ox 97.6 F 80 18 146/86 97 08/09/17 10:40 08/09/17 10:40 08/09/17 10:40 08/09/17 10:40 08/09/17 10:40 General appearance: Present: cooperative, A&O X 3, no acute distress, answers questions appropriately - Head Head exam: Present: atraumatic, normocephalic - Eye Eye exam: Present: PERRL, conjuntiva pink, sclera anicteric Pupils: Present: PERRL - Neck Neck exam general surgery: Present: supple, trachea midline. Absent: lymphadenopathy - Respiratory Respiratory exam: Present: CTAB. Absent: accessory muscle use, rales, rhonchi, wheezes - Cardiovascular Cardiovascular exam: Present: RRR, +S1, +S2. Absent: diastolic murmur, gallop, rubs, systolic murmur - GI/Abdominal GI/Abdominal exam: Present: normal bowel sounds, soft, no peritoneal signs. Absent: distended, tenderness - Extremities Exam Extremities exam: Present: warm, radial pulses palpable and symmetrical. Absent : calf tenderness, cyanotic, pedal edema - Neurological Exam Neurological exam: Present: CN II-XII intact, oriented X3, no focal deficits. Absent: pronater drift, facial droop, speech deficit - Skin Skin exam: Present: dry, intact Internal Medicine: Result - Labs CBC & Chem 7: 08/08/17 05:16 08/08/17 05:16 - ABG Interpretation ABG results: PT/INR, D-dimer PT 14.6 Seconds (9.4-12.1) H 08/09/17 03:53 - Impressions Impressions Chest X-Ray 08/08/17 12:24 IMPRESSION: Small bilateral pleural effusions. No focal consolidation or overt edema. D/ / 08/08/2017 14:50:14 Axel Barton MD / [employer]old Interpreting Provider: Axel Barton MD - VTE Documentation of Mechanical Device: Graduated compression elastic hosiery Consult Discharge Plan - Plan Referrals: Miguel Ayala MD [Primary Care Provider] - 08/14/17 10:15 am
[2017-08-09 16:05] LABS: Basophils # 0.1 K/mcL (0.0-0.2); Basophils % 0.6 %; Eosinophils # 0.4 K/mcL (0.0-0.6); Eosinophils % 4.4 %; Hematocrit 31.9 % (37.5-50.1); Hemoglobin 10.4 g/dL (12.9-16.9); Immature Granulocytes % 0.2 % (0-4); Lymphocytes # 1.7 K/mcL (0.6-4.6); Lymphocytes % 20.5 %; Mean Corpuscular HGB Conc 32.6 g/dL (31.6-35.5); Mean Corpuscular Hemoglobin 28.7 pg (28.0-33.3); Mean Corpuscular Volume 87.9 fL (83.0-100.0); Mean Platelet Volume 9.5 fL (9.4-12.4); Monocytes # 0.9 K/mcL (0.0-1.3); Monocytes % 10.9 %; Neutrophils # 5.3 K/mcL (1.6-8.9); Platelet Count 431 K/mcL (140-400); Red Blood Count 3.63 M/mcL (4.19-5.50); Red Cell Distribution Width 16.9 % (11.5-14.5); Segmented Neutrophils % 63.4 %
[2017-08-09 16:28] LABS: BUN/Creatinine Ratio 8 (6-26); Blood Urea Nitrogen 9 mg/dL (8-23); Calcium 8.8 mg/dL (8.6-10.3); Carbon Dioxide 26 mEq/L (23-29); Chloride 110 mEq/L (98-107); Glucose 119 mg/dL (70-105); Osmolality,Calculated 298 (280-300); Potassium 3.7 mEq/L (3.5-5.1); Sodium 144 mEq/L (136-145); eGFR For African Americans > 60 (> 60); eGFR For Non-African Americans > 60 (> 60)
[2017-08-10] MEDS: Ampicillin 2 GM in 0.9 % Sodium Chloride Mini Bag 100 ML IVPB SCH ×6 (00:48→21:20)
[2017-08-10 06:06] LABS: Basophils % 0.4 %; Eosinophils # 0.4 K/mcL (0.0-0.6); Eosinophils % 4.8 %; Hematocrit 31.1 % (37.5-50.1); Hemoglobin 9.9 g/dL (12.9-16.9); Immature Granulocytes % 0.4 % (0-4); Lymphocytes # 1.5 K/mcL (0.6-4.6); Lymphocytes % 18.9 %; Mean Corpuscular HGB Conc 31.8 g/dL (31.6-35.5); Mean Corpuscular Hemoglobin 28.2 pg (28.0-33.3); Mean Corpuscular Volume 88.6 fL (83.0-100.0); Mean Platelet Volume 9.5 fL (9.4-12.4); Monocytes # 0.8 K/mcL (0.0-1.3); Monocytes % 10.1 %; Neutrophils # 5.2 K/mcL (1.6-8.9); Platelet Count 397 K/mcL (140-400); Red Blood Count 3.51 M/mcL (4.19-5.50); Red Cell Distribution Width 17.2 % (11.5-14.5); Segmented Neutrophils % 65.4 %
[2017-08-10 06:10] LABS: INR 1.3; Prothrombin Time 13.6 Seconds (9.4-12.1)
[2017-08-10 06:26] LABS: BUN/Creatinine Ratio 7 (6-26); Blood Urea Nitrogen 6 mg/dL (8-23); Calcium 8.6 mg/dL (8.6-10.3); Carbon Dioxide 27 mEq/L (23-29); Chloride 110 mEq/L (98-107); Glucose 106 mg/dL (70-105); Osmolality,Calculated 298 (280-300); Potassium 3.5 mEq/L (3.5-5.1); Sodium 145 mEq/L (136-145); eGFR For African Americans > 60 (> 60); eGFR For Non-African Americans > 60 (> 60)
[2017-08-10] MEDS: Finasteride 5 MG TABLET PO SCH (08:22)
[2017-08-10] MEDS: Diltiazem CD (24hr) 180 MG CAPSULE PO SCH (08:22)
[2017-08-10] MEDS: Pantoprazole 40 MG VIAL IVP SCH (08:22)
[2017-08-10] MEDS: Lactobacillus 1 EACH CAP.SPRINK PO SCH ×2 (08:22→21:20)
[2017-08-10] MEDS: Fluconazole 200 MG/100 ML 200 MG/100 ML BAG IVPB SCH (09:00)
[2017-08-10] MEDS: LUTEIN PO SCH (09:01)
--- NOTE | 2017-08-10 09:50 | Infectious Disease Progress No ---
Date of Encounter: 08/10/17 Time of Encounter: 09:48 - Assessment and Plan (1) Sepsis Current Visit: Yes Status: Acute The patient had two SIRS criteria on admission. Likely secondary to bacteremia and UTI. Improved. WBC normal. Fever and tachycardia have resolved. Blood cultures drawn 08/02/17 are positive 2/2 sets for Enterococcus faecalis. Repeat blood cultures drawn 08/03/17 are positive 2/2 sets as well. Repeat blood cultures x 2 sets drawn 08/05/17 are positive 1/2 sets. Repeat blood cultures drawn 08/07/17 are NGTD x 2 sets. Qualifiers: Sepsis type: sepsis due to unspecified organism Qualified Code(s): A41.9 - Sepsis, unspecified organism (2) Bacteremia Current Visit: Yes Status: Acute Causative organism: Enteroccocus faecalis. Source: Likely the urine, but urine culture was negative despite pyruia on UA. Blood cultures drawn 08/02/17 are positive 2/2 sets. Repeat blood cultures drawn 08/03/17 are positive 2/2 as well. Repeat blood cultures drawn 08/05/17 are positive 1/2 sets. Additional blood cultures drawn 08/07/17 are NGTD x 2 sets. Complicated due to the presence of pacemaker, bioprosthetic aortic valve, and bilateral knee hardware. No endocarditis stigmata noted. The patient has one major and one minor Modified Nur's Criteria. TTE done during previous hospitalization in June was negative, but at that time the patient did not have bacteremia. TTE and LUIGI negative. Rheumatoid factor normal. Continue ampicillin 2 grams IV Q4H. Duration of treatment depends on the clinical picture, but likely 4 weeks. Can transition to ampicillin 12 grams IV Q24H via continuous IV infusion when ready for discharge. Consult social worker delinquency prevention to assist with discharge planning. Monitor renal function and for drug toxicity and dose-adjust antibiotics. Consult VAT for IV placement. Will need weekly CBC, BUN/Cr. Will need weekly IV care. Follow up with ID 08/25/17 at 0920. (3) UTI (urinary tract infection) Current Visit: Yes Status: Acute Causative organism unclear. Urinalysis positive for pyuria and yeast, but no culture was sent. Urine culture negative, but high index of suspicion for infection given the clinical picture and urinalysis findings. Continue antibiotics as above. Discontinue fluconazole after today's dose (day 7). Qualifiers: Urinary tract infection type: site unspecified Hematuria presence: with hematuria Qualified Code(s): N39.0 - Urinary tract infection, site not specified; R31.9 - Hematuria, unspecified; R31.9 - Hematuria, unspecified (4) Thrombocytopenia Current Visit: Yes Status: Resolved Likely multifactorial: sepsis + recent use of linezolid. No acute bleeding noted on exam. Resolved. Continue to trend. Management per the primary team. (5) Atrial fibrillation with RVR Current Visit: Yes Status: Acute Chronic A-fib with RVR likely secondary to sepsis. Rate-controlled. Management per the primary team. (6) Anemia Current Visit: Yes Status: Acute Hgb improved slightly improved to 9 this morning. No acute bleeding noted on exam, but FOBT positive. Xarelto on hold. Plan to switch to Eliquis. GI consulted. EGD negative. C-scope negative. Continue to trend. Further workup and management per the primary team. Qualifiers: Anemia type: other cause Other causes of anemia: other cause, not classified Qualified Code(s): D64.89 - Other specified anemias (7) History of MRSA infection Current Visit: Yes Status: Resolved 07/12/17 urine culture positive for MRSA at OSH. Treated with course of PO linezolid. MRSA screen negative. (8) Pacemaker Current Visit: Yes Status: Acute Status post pacemaker placement in 2016. Insertion site well-healed without evidence of infection. LUIGI negative for vegetations. (9) Status post transcatheter aortic valve replacement Current Visit: Yes Status: Acute January 2017. Bioprosthetic valve. (10) HTN (hypertension) Current Visit: Yes Status: Chronic Qualifiers: Hypertension type: essential hypertension Qualified Code(s): I10 - Essential (primary) hypertension (11) Bladder cancer Current Visit: Yes Status: Acute Diagnosed in May 2017. Status post cystoscopy with resection of the bladder tumor. Per patient's , they were able to resect the entire tumor and patient needs repeat imaging in three months. No chemo/radiation planned at this point. Qualifiers: Bladder location: unspecified site Qualified Code(s): C67.9 - Malignant neoplasm of bladder, unspecified (12) Diarrhea Current Visit: Yes Status: Resolved Likely secondary to antibiotics. C. diff negative. Continue probiotics. Qualifiers: Diarrhea type: unspecified type Qualified Code(s): R19.7 - Diarrhea, unspecified (13) GI bleed Current Visit: Yes Status: Acute Anemic with positive FOBT. EGD negative for bleeding. C-scope negative. Xarelto discontinued. Plan to switch to Eliquis per cardiology and the primary team. Qualifiers: GI bleed type/associated pathology: unspecified gastrointestinal hemorrhage type Qualified Code(s): K92.2 - Gastrointestinal hemorrhage, unspecified - Subjective Interval history: Patient seen and examined. Weekend notes reviewed. Patient had episode of tachycardia this morning when he got up to the [facility] without help. Sitting up on the side of the bed, eating breakfast with his and son at bedside. States overall he feels great and wants to go home. Denies fevers, chills, rigors. Denies chest pain or cough. States dyspnea on exertion is better. Denies nausea , vomiting, or constipation. Denies diarrhea, urinary complaints, or abdominal pain. States his appetite is good. Denies oral thrush or new skin lesions. Infect Dis PN-Objective Data - Labs CBC & Chem 7: 08/10/17 05:52 08/10/17 05:52 Labs: Laboratory Results - last 24 hr 08/09/17 08/09/17 08/10/17 15:54 15:54 05:52 WBC 8.4 RBC 3.63 L Hgb 10.4 L D Hct 31.9 L MCV 87.9 MCH 28.7 MCHC 32.6 RDW 16.9 H Plt Count 431 H MPV 9.5 Immature Gran % 0.2 Seg Neutrophils % 63.4 Lymphocytes % 20.5 Monocytes % 10.9 Eosinophils % 4.4 Basophils % 0.6 Neutrophils # 5.3 Lymphocytes # 1.7 Monocytes # 0.9 Eosinophils # 0.4 Basophils # 0.1 PT 13.6 H INR 1.3 Sodium 144 Potassium 3.7 Chloride 110 H Carbon Dioxide 26 BUN 9 Creatinine 1.06 Est GFR ( Amer) > 60 Est GFR (Non-Af Amer) > 60 BUN/Creatinine Ratio 8 Glucose 119 H Calculated Osmolality 298 Calcium 8.8 08/10/17 08/10/17 05:52 05:52 WBC 7.9 RBC 3.51 L Hgb 9.9 L Hct 31.1 L MCV 88.6 MCH 28.2 MCHC 31.8 RDW 17.2 H Plt Count 397 MPV 9.5 Immature Gran % 0.4 Seg Neutrophils % 65.4 Lymphocytes % 18.9 Monocytes % 10.1 Eosinophils % 4.8 Basophils % 0.4 Neutrophils # 5.2 Lymphocytes # 1.5 Monocytes # 0.8 Eosinophils # 0.4 Basophils # 0.0 PT INR Sodium 145 Potassium 3.5 Chloride 110 H Carbon Dioxide 27 BUN 6 L Creatinine 0.89 Est GFR ( Amer) > 60 Est GFR (Non-Af Amer) > 60 BUN/Creatinine Ratio 7 Glucose 106 H Calculated Osmolality 298 Calcium 8.6 Cultures: Cultures 08/07/17 00:29 Blood Culture - Preliminary Peripheral Venipuncture No growth. 08/07/17 00:29 Blood Culture - Preliminary Peripheral Venipuncture No growth. 08/05/17 11:31 Blood Culture - Final Peripheral Venipuncture Enterococcus faecalis 08/05/17 11:25 Blood Culture - Preliminary Peripheral Venipuncture No growth. 08/03/17 11:08 Blood Culture - Final Peripheral Venipuncture Enterococcus faecalis 08/03/17 10:24 Blood Culture - Final Peripheral Venipuncture Enterococcus faecalis Serology 08/05/17 08/04/17 08/03/17 Range/Units 13:32 12:30 17:40 Nasal Screen MRSA (PCR) Negative (Negative) Stool Occult Blood Positive A (Negative) Stl C. diff Tox B Gene Negative (Negative) 08/03/17 08/02/17 Range/Units 11:54 07:00 Nasal Screen MRSA (PCR) Negative Negative (Negative) Stool Occult Blood (Negative) Stl C. diff Tox B Gene (Negative) Exam - Constitutional Vitals: Temp Pulse Resp BP Pulse Ox 97.8 F 83 16 161/71 93 08/10/17 06:48 08/10/17 06:48 08/10/17 06:48 08/10/17 06:48 08/10/17 06:48 General appearance: average body habitus, cooperative, no acute distress - Head Head exam: Present: atraumatic, normal inspection, normocephalic - Eye Eye exam: Present: EOMI, normal appearance Pupils: Present: normal accommodation, PERRL - ENT ENT exam: Present: mucous membranes moist - Neck Neck exam: Present: normal inspection - Respiratory Respiratory exam: Present: CTAB. Absent: rales, rhonchi, wheezes, tachypnea - Cardiovascular Cardiovascular exam: Present: irregular rhythm. Absent: tachycardia - GI/Abdominal GI/Abdominal exam: Present: normal bowel sounds, soft. Absent: distended, tenderness - Extremities Exam Extremities exam: Present: normal inspection, pedal edema (Trace BLE). Absent: joint swelling, tenderness - Neurological Exam Neurological exam: Present: alert, oriented X3, no focal deficits - Psychiatric Psychiatric exam: Present: normal affect, normal mood - Skin Skin exam: Present: dry, intact, normal color, warm - VTE Documentation of Mechanical Device: Graduated compression elastic hosiery Consult Discharge Plan - Plan Instructions: Atrial Fibrillation (DC), Urinary Tract Infection in Men (DC), Sepsis (DC), Chronic Hypertension (DC), Anemia (GEN) Referrals: Miguel Ayala MD [Primary Care Provider] - 08/14/17 10:15 am Alejandra Figueroa CNP [Advanced Practice Nurse] - 08/25/17 9:20 am Prescriptions: Ampicillin 12 gm IV Q24H #28 vial Apixaban [Eliquis] 5 mg PO BID #60 tablet Diltiazem CD (24hr) [Cardizem CD] 180 mg PO DAILY #30 cap.er.24h Lactobacillus [Culturelle] 1 each PO BID #60 cap.sprink - Attending Attestation I examined this patient and my medical decision-making was reviewed with the Resident Physician. I agree with the documented findings, disposition and treatment plan as described except to the extent set forth below.
--- NOTE | 2017-08-10 10:33 | Discharge Summary ---
- NOTES TO OUTPATIENT PROVIDER Notes to Outpatient Provider: Seen by infectious disease, Bacteremia - home with PICC ampiccilin 12 grams IV Q24hr. monitor renal function. will need weekly CBC, BUN/Cr. Taken off Xarelto dt bleeding placed on Eliquis Orders not resulted at time of discharge: Pending orders 08/05/17 11:25 Culture,Blood [BC] Stat 08/06/17 14:12 Surgical Pathology [PTH] Routine 08/06/17 17:42 Culture,Blood [BC] Stat 08/11/17 04:00 PT/INR [Prothrombin Time INR] [COAG] AM 0400 08/12/17 04:00 PT/INR [Prothrombin Time INR] [COAG] AM 0400 Date of Encounter: 08/10/17 Time of Encounter: 10:28 - Discharge Diagnosis (1) Bacteremia Priority: Primary Status: Acute (2) Sepsis Priority: Primary Status: Acute Qualifiers: Sepsis type: sepsis due to unspecified organism Qualified Code(s): A41.9 - Sepsis, unspecified organism (3) Atrial fibrillation with RVR Priority: Secondary Status: Acute (4) UTI (urinary tract infection) Priority: Secondary Status: Acute Qualifiers: Urinary tract infection type: site unspecified Hematuria presence: with hematuria Qualified Code(s): N39.0 - Urinary tract infection, site not specified; R31.9 - Hematuria, unspecified; R31.9 - Hematuria, unspecified (5) Thrombocytopenia Priority: Secondary Status: Resolved (6) MRSA (methicillin resistant Staphylococcus aureus) infection Priority: Secondary Status: Acute (7) HTN (hypertension) Priority: Secondary Status: Chronic Qualifiers: Hypertension type: essential hypertension Qualified Code(s): I10 - Essential (primary) hypertension (8) Bladder cancer Priority: Secondary Status: Acute Qualifiers: Bladder location: unspecified site Qualified Code(s): C67.9 - Malignant neoplasm of bladder, unspecified (9) Anemia Priority: Secondary Status: Acute Qualifiers: Anemia type: other cause Other causes of anemia: other cause, not classified Qualified Code(s): D64.89 - Other specified anemias (10) Status post transcatheter aortic valve replacement Priority: Secondary Status: Acute (11) Diarrhea Priority: Secondary Status: Resolved Qualifiers: Diarrhea type: unspecified type Qualified Code(s): R19.7 - Diarrhea, unspecified (12) Fluid excess Priority: Secondary Status: Acute Qualifiers: Hypervolemia type: transfusion-associated Qualified Code(s): E87.71 - Transfusion associated circulatory overload (13) Hypokalemia Priority: Secondary Status: Acute Hospital course: Mr. Fan is a 87 year old male past medical history of atrial fibrillation on Xarelto hypertension hyperlipidemia recently diagnosed with bladder cancer status post tumor resection followed by urosepsis posthemorrhagic anemia remote history of pacemaker placement and TAPVR and 2017. The patient was admitted to the hospital August 02 for UTI A. fib RVR and thrombocytopenia. Prior to presentation the patient spiked a fever 102 had generalized weakness and malaise experiencing chills and Rigor. Lab work did reveal mild leukocytosis and lactic acidosis urinalysis was indicative of UTI with many yeast and few bacteria blood cultures were obtained which were positive for enterococcus Cardizem was adjusted and A. fib improved infectious disease was consulted for recommendations regarding enterococcus bacteremia. In the previous hospitalization a few weeks ago patient was diagnosed with MRSA in his urine he completed 10 day course of oral lnezolid which she completed antibiotic course last week. Infectious disease did see patient in initially was on Zyvox Rocephin flucanazole he was placed on vancomycin and this was de-escalate it to ampicillin per culture sensitivity. 4 sets of blood cultures were completed no growth 2 sets blood cultures 08/07/17. Infectious disease did recommend LUIGI due to bacteremia patient's recent TAPVR. Previous TTE in June was negative. LUIGI was completed and did not show any evidence of endocarditis. Infectious disease recommending continuing ampicillin IV as outpatient monitoring lab work and following up with ID as outpatient. Clinically the patient did improve with no leukocytosis however he did experience some thrombocytopenia suspect related to recent linezolid and sepsis this improved and is back to baseline. Also during this admission patient did experience some nose bleeding and a drop in his hemoglobin. His Xarelto was held stool guaiac was obtained which was positive. Hemoglobin did drop down to 6.9 he was transfused for 2 units We did consult GI patient did undergo endoscopy and colonoscopy-endoscopy was normal with no bleeding colonoscopy did show nonbleeding polyps that were sent for biopsy. He is maintained steady hemoglobin since EGD and colonoscopy. GI cleared patient to resume anticoagulation. Cardiology recommending Eliquis patient was started on Eliquis. Patient did experience some shortness of breath and lower show me swelling during his stay. Chest x-ray did show some mild bilateral pleural effusion. Patient was given IV Lasix and slowly improved as well as breathing. He is not requiring any oxygen. Saturations are stable on room air. 6 minute walk was completed he does not qualify for any home oxygen use. He was evaluated by PT with no PT needs after discharge. I did speak with egg caser patient is ready to discharge today he will be followed up with [facility] however they are unable to see the patient today but available tomorrow morning. Patient will stay overnight receive his 8 AM medication and be discharged home. This was discussed with the family per egg caser and they agreed to discharge arrangements Presently the patient is hemodynamically stable. He denies any pain or discomfort he does not appear to be in any respiratory distress and his denies any shortness of breath at this time. He is hemodynamically stable at this time lab work is unremarkable. Pending any changes overnight patient is ready for discharge Discharge discussed with: patient, family - Time Spent with Patient Total time spent providing and/or coordinating discharge services: - Discharge Medications Prescriptions: Ampicillin 12 gm IV Q24H #28 vial Apixaban [Eliquis] 5 mg PO BID #60 tablet Diltiazem CD (24hr) [Cardizem CD] 180 mg PO DAILY #30 cap.er.24h Lactobacillus [Culturelle] 1 each PO BID #60 cap.sprink Home Medications: Aspirin [Lo-Dose Aspirin EC] 81 mg PO DAILY 08/02/17 [History] Calcium Carbonate [Calcium] 1,200 mg PO DAILY 08/02/17 [History] Cetirizine HCl 10 mg PO DAILY 08/02/17 [History] Finasteride [Proscar] 5 mg PO DAILY 08/02/17 [History] Lutein Extract/Zeaxanthin Ext [Lutein 15 mg Softgel] 1 cap PO DAILY 08/02/17 [ History] Rivaroxaban [Xarelto] 20 mg PO DAILY 08/02/17 [History] Simvastatin [Zocor] 10 mg PO DAILY 08/02/17 [History] Tamsulosin [Flomax] 0.4 mg PO DAILY 08/02/17 [History] Ampicillin 12 gm IV Q24H #28 vial 08/10/17 [Rx] Apixaban [Eliquis] 5 mg PO BID #60 tablet 08/10/17 [Rx] Diltiazem CD (24hr) [Cardizem CD] 180 mg PO DAILY #30 cap.er.24h 08/10/17 [Rx] Lactobacillus [Culturelle] 1 each PO BID #60 cap.sprink 08/10/17 [Rx] Allergies/Adverse Reactions: 3 Allergy/AdvReac Type Severity Reaction Status Date / Time No Known Allergies Allergy Verified 08/01/17 23:21 Date of admission: 08/02/17 05:01 Primary care physician: Miguel Ayala MD Consults: 08/03/17 10:49 Consult to Infectious Diseases [CONS] Routine Consulting Provider: Infectious Disease [place] Reason for Consult: Enterococcus bacteremia Time Notified: 10:49 Call Completed: Yes 08/04/17 17:23 Consult to Gastroenterology [CONS] Routine Consulting Provider: Gastroenterology [place] Reason for Consult: GI bleed Time Notified: 17:24 Call Completed: Yes 08/04/17 17:27 Consult to Cardiology [CONS] Routine Comment: Consulting Provider: Cardiology [place] Reason for Consult: Afib, anticoagulation eval, patient on Xarelto, bleeding Time Notified: 17:28 Call Completed: Yes 08/06/17 16:31 Consult to Physical Therapy [CONS] Routine Comment: Evaluate, develop and implement POC Reason for Consult: Strength Does patient have active BEDREST order?: No Is patient medically & hemodynamically stable?: Yes 08/10/17 09:05 Consult to Invasive Line Access Team [CONS] Routine Reason for Consult: home atb Line Type: Midline Discharging clinician: Bea Costa Anticipated date of discharge: 08/11/17 - Constitutional Vitals: Temp Pulse Resp BP Pulse Ox 97.8 F 83 16 161/71 93 08/10/17 06:48 08/10/17 06:48 08/10/17 06:48 08/10/17 06:48 08/10/17 08:00 General appearance: Present: cooperative, A&O X 3, no acute distress, answers questions appropriately - Head Head exam: Present: atraumatic, normocephalic - Eye Eye exam: Present: PERRL, conjuntiva pink, sclera anicteric Pupils: Present: PERRL - Neck Neck exam general surgery: Present: supple, trachea midline. Absent: lymphadenopathy - Respiratory Respiratory exam: Present: CTAB. Absent: accessory muscle use, rales, rhonchi, wheezes - Cardiovascular Cardiovascular exam: Present: RRR, +S1, +S2. Absent: diastolic murmur, gallop, rubs, systolic murmur - GI/Abdominal GI/Abdominal exam: Present: normal bowel sounds, soft, no peritoneal signs. Absent: distended, tenderness - Extremities Exam Extremities exam: Present: warm, radial pulses palpable and symmetrical. Absent : calf tenderness, cyanotic, pedal edema - Neurological Exam Neurological exam: Present: CN II-XII intact, oriented X3, no focal deficits. Absent: pronater drift, facial droop, speech deficit - Skin Skin exam: Present: dry, intact - Patient Status Disposition: Home Health Service Condition: Fair Functional capacity at discharge: independent ambulation Overall status at discharge: patient is progressing back to baseline - Discharge Instructions Instructions: Atrial Fibrillation (DC), Urinary Tract Infection in Men (DC), Sepsis (DC), Chronic Hypertension (DC), Anemia (GEN) Follow Up With: Alejandra Figueroa CNP [Advanced Practice Nurse] - 08/25/17 9:20 am Miguel Ayala MD [Primary Care Provider] - 08/14/17 10:15 am - Diet and Activity Activity: resume usual activities as tolerated Diet: advance to your usual diet - VTE Documentation of Mechanical Device: Graduated compression elastic hosiery
[2017-08-10] MEDS: Apixaban 5 MG TABLET PO SCH ×2 (10:38→21:20)
--- NOTE | 2017-08-10 11:50 | Physician Discharge Referral ---
Home Health/Hosp Referral Info Transfer to: Home Health Attending Provider: Bea Costa Provider in Charge Post Discharge: PCP - Diagnosis (1) Bacteremia Priority: Primary Status: Acute (2) Sepsis Priority: Primary Status: Acute (3) Atrial fibrillation with RVR Priority: Secondary Status: Acute (4) UTI (urinary tract infection) Priority: Secondary Status: Acute (5) Thrombocytopenia Priority: Secondary Status: Resolved (6) MRSA (methicillin resistant Staphylococcus aureus) infection Priority: Secondary Status: Acute (7) HTN (hypertension) Priority: Secondary Status: Chronic (8) Bladder cancer Priority: Secondary Status: Acute (9) Anemia Priority: Secondary Status: Acute (10) Status post transcatheter aortic valve replacement Priority: Secondary Status: Acute (11) Diarrhea Priority: Secondary Status: Resolved (12) Fluid excess Priority: Secondary Status: Acute (13) Hypokalemia Priority: Secondary Status: Acute - Respiratory Orders Smoking Cessation: Smoking cessation has been advised. For more information, call the [employer] Quit Line at 1-629-OHYB-NOW. - Diet/Nutrition Diet/Nutrition Orders: Cardiac - Activity Activity Orders: Up ad chris - Services Needed Following services are medically necessary services: Nursing, Home Infusion Other Treatments: Weekly CBC, BUN/Cr Weekly IV care - Transfer Medications Prescriptions: Ampicillin 12 gm IV Q24H #28 vial Apixaban [Eliquis] 5 mg PO BID #60 tablet Diltiazem CD (24hr) [Cardizem CD] 180 mg PO DAILY #30 cap.er.24h Lactobacillus [Culturelle] 1 each PO BID #60 cap.sprink Home Medications: Aspirin [Lo-Dose Aspirin EC] 81 mg PO DAILY 08/02/17 [History] Calcium Carbonate [Calcium] 1,200 mg PO DAILY 08/02/17 [History] Cetirizine HCl 10 mg PO DAILY 08/02/17 [History] Finasteride [Proscar] 5 mg PO DAILY 08/02/17 [History] Lutein Extract/Zeaxanthin Ext [Lutein 15 mg Softgel] 1 cap PO DAILY 08/02/17 [ History] Rivaroxaban [Xarelto] 20 mg PO DAILY 08/02/17 [History] Simvastatin [Zocor] 10 mg PO DAILY 08/02/17 [History] Tamsulosin [Flomax] 0.4 mg PO DAILY 08/02/17 [History] Ampicillin 12 gm IV Q24H #28 vial 08/10/17 [Rx] Apixaban [Eliquis] 5 mg PO BID #60 tablet 08/10/17 [Rx] Diltiazem CD (24hr) [Cardizem CD] 180 mg PO DAILY #30 cap.er.24h 08/10/17 [Rx] Lactobacillus [Culturelle] 1 each PO BID #60 cap.sprink 08/10/17 [Rx] Allergies/Adverse Reactions: 3 Allergy/AdvReac Type Severity Reaction Status Date / Time No Known Allergies Allergy Verified 08/01/17 23:21 Certification: Further, I certify that my clinical findings support that this patient is homebound (i.e. absences from home require considerable and taxing effort and are for medical reasons or [employer] services or infrequently or short duration when for other reasons) because: Homebound Reason: Absences from home are contraindicated except to recieve medical care, Leaving home requires considerable and taxing effort due to condition, Severity of cardiac or pulmonary status limits activity tolerance Attestation: My signature below is to certify that this patient is under my care and that I, or nurse practitioner, or a physician's medical assistant working with me, has a face-to -face encounter with this patient.
[2017-08-11] MEDS: Ampicillin 2 GM in 0.9 % Sodium Chloride Mini Bag 100 ML IVPB SCH ×3 (00:30→07:34)
[2017-08-11 03:32] VITALS: BP 166/75
[2017-08-11 04:52] LABS: INR 1.4; Prothrombin Time 15.4 Seconds (9.4-12.1)
[2017-08-11] MEDS: LUTEIN PO SCH (07:35)
[2017-08-11] MEDS: Diltiazem CD (24hr) 180 MG CAPSULE PO SCH (07:35)
[2017-08-11] MEDS: Pantoprazole 40 MG VIAL IVP SCH (07:35)
[2017-08-11] MEDS: Lactobacillus 1 EACH CAP.SPRINK PO SCH (07:35)
[2017-08-11] MEDS: Apixaban 5 MG TABLET PO SCH (07:35)
[2017-08-11] MEDS: Finasteride 5 MG TABLET PO SCH (07:35)
--- NOTE | 2017-08-11 10:32 | Infectious Disease Progress No ---
Date of Encounter: 08/11/17 Time of Encounter: 10:29 - Assessment and Plan (1) Sepsis Current Visit: Yes Status: Acute The patient had two SIRS criteria on admission. Likely secondary to bacteremia and UTI. Improved. WBC normal. Fever and tachycardia have resolved. Blood cultures drawn 08/02/17 are positive 2/2 sets for Enterococcus faecalis. Repeat blood cultures drawn 08/03/17 are positive 2/2 sets as well. Repeat blood cultures x 2 sets drawn 08/05/17 are positive 1/2 sets. Repeat blood cultures drawn 08/07/17 are NGTD x 2 sets. Qualifiers: Sepsis type: sepsis due to unspecified organism Qualified Code(s): A41.9 - Sepsis, unspecified organism (2) Bacteremia Current Visit: Yes Status: Acute Causative organism: Enteroccocus faecalis. Source: Likely the urine, but urine culture was negative despite pyruia on UA. Blood cultures drawn 08/02/17 are positive 2/2 sets. Repeat blood cultures drawn 08/03/17 are positive 2/2 as well. Repeat blood cultures drawn 08/05/17 are positive 1/2 sets. Additional blood cultures drawn 08/07/17 are NGTD x 2 sets. Complicated due to the presence of pacemaker, bioprosthetic aortic valve, and bilateral knee hardware. No endocarditis stigmata noted. The patient has one major and one minor Modified Nur's Criteria. TTE done during previous hospitalization in June was negative, but at that time the patient did not have bacteremia. TTE and LUIGI negative. Rheumatoid factor normal. Continue ampicillin 2 grams IV Q4H. Duration of treatment depends on the clinical picture, but likely 4 weeks. Can transition to ampicillin 12 grams IV Q24H via continuous IV infusion when ready for discharge. Consult family welfare social work professor to assist with discharge planning. Monitor renal function and for drug toxicity and dose-adjust antibiotics. Will need weekly CBC, BUN/Cr. Will need weekly IV care. Follow up with ID 08/25/17 at 0920. (3) UTI (urinary tract infection) Current Visit: Yes Status: Acute Causative organism unclear. Urinalysis positive for pyuria and yeast, but no culture was sent. Urine culture negative, but high index of suspicion for infection given the clinical picture and urinalysis findings. Completed 7 day course of fluconazole. Will require prolonged course of Ampicillin for bacteremia. Qualifiers: Urinary tract infection type: site unspecified Hematuria presence: with hematuria Qualified Code(s): N39.0 - Urinary tract infection, site not specified; R31.9 - Hematuria, unspecified; R31.9 - Hematuria, unspecified (4) Thrombocytopenia Current Visit: Yes Status: Resolved Likely multifactorial: sepsis + recent use of linezolid. No acute bleeding noted on exam. Resolved. Continue to trend. Management per the primary team. (5) Atrial fibrillation with RVR Current Visit: Yes Status: Acute Chronic A-fib with RVR likely secondary to sepsis. Rate-controlled. Management per the primary team. (6) Anemia Current Visit: Yes Status: Acute Hgb improved slightly improved to 9 this morning. No acute bleeding noted on exam, but FOBT positive. Xarelto on hold. Plan to switch to Eliquis. GI consulted. EGD negative. C-scope negative. Continue to trend. Further workup and management per the primary team. Qualifiers: Anemia type: other cause Other causes of anemia: other cause, not classified Qualified Code(s): D64.89 - Other specified anemias (7) History of MRSA infection Current Visit: Yes Status: Resolved 07/12/17 urine culture positive for MRSA at OSH. Treated with course of PO linezolid. MRSA screen negative. (8) Pacemaker Current Visit: Yes Status: Acute Status post pacemaker placement in 2016. Insertion site well-healed without evidence of infection. LUIGI negative for vegetations. (9) Status post transcatheter aortic valve replacement Current Visit: Yes Status: Acute January 2017. Bioprosthetic valve. (10) HTN (hypertension) Current Visit: Yes Status: Chronic Qualifiers: Hypertension type: essential hypertension Qualified Code(s): I10 - Essential (primary) hypertension (11) Bladder cancer Current Visit: Yes Status: Acute Diagnosed in May 2017. Status post cystoscopy with resection of the bladder tumor. Per patient's , they were able to resect the entire tumor and patient needs repeat imaging in three months. No chemo/radiation planned at this point. Qualifiers: Bladder location: unspecified site Qualified Code(s): C67.9 - Malignant neoplasm of bladder, unspecified (12) Diarrhea Current Visit: Yes Status: Resolved Likely secondary to antibiotics. C. diff negative. Continue probiotics. Qualifiers: Diarrhea type: unspecified type Qualified Code(s): R19.7 - Diarrhea, unspecified (13) GI bleed Current Visit: Yes Status: Acute Anemic with positive FOBT. EGD negative for bleeding. C-scope negative. Xarelto discontinued. Plan to switch to Eliquis per cardiology and the primary team. Qualifiers: GI bleed type/associated pathology: unspecified gastrointestinal hemorrhage type Qualified Code(s): K92.2 - Gastrointestinal hemorrhage, unspecified - Subjective Interval history: Patient seen and examined. No acute events noted overnight. Patient ambulating in the room, pending discharge this morning. Denies fevers, chills, rigors. Denies chest pain or cough or shortness of breath. Denies nausea, vomiting, or constipation. Reports stools are soft, but not diarrhea. Denies urinary complaints, or abdominal pain. Denies oral thrush or new skin lesions. Infect Dis PN-Objective Data - Labs CBC & Chem 7: 08/10/17 05:52 08/10/17 05:52 Labs: Laboratory Results - last 24 hr 08/11/17 04:00 PT 15.4 H INR 1.4 Cultures: Cultures 08/05/17 11:25 Blood Culture - Final Peripheral Venipuncture No growth. 08/07/17 00:29 Blood Culture - Preliminary Peripheral Venipuncture No growth. 08/07/17 00:29 Blood Culture - Preliminary Peripheral Venipuncture No growth. 08/05/17 11:31 Blood Culture - Final Peripheral Venipuncture Enterococcus faecalis 08/03/17 11:08 Blood Culture - Final Peripheral Venipuncture Enterococcus faecalis 08/03/17 10:24 Blood Culture - Final Peripheral Venipuncture Enterococcus faecalis Serology 08/05/17 08/04/17 08/03/17 Range/Units 13:32 12:30 17:40 Nasal Screen MRSA (PCR) Negative (Negative) Stool Occult Blood Positive A (Negative) Stl C. diff Tox B Gene Negative (Negative) 08/03/17 08/02/17 Range/Units 11:54 07:00 Nasal Screen MRSA (PCR) Negative Negative (Negative) Stool Occult Blood (Negative) Stl C. diff Tox B Gene (Negative) Exam - Constitutional Vitals: Temp Pulse Resp BP Pulse Ox 98.3 F 81 15 166/75 94 08/11/17 04:20 08/11/17 04:20 08/11/17 04:20 08/11/17 04:20 08/11/17 04:20 General appearance: average body habitus, cooperative, no acute distress - Head Head exam: Present: atraumatic, normal inspection, normocephalic - Eye Eye exam: Present: EOMI, normal appearance, PERRL Pupils: Present: normal accommodation - ENT ENT exam: Present: mucous membranes moist - Neck Neck exam: Present: normal inspection - Respiratory Respiratory exam: Present: CTAB. Absent: rales, respiratory distress, rhonchi, wheezes - Cardiovascular Cardiovascular exam: Present: irregular rhythm. Absent: tachycardia - GI/Abdominal GI/Abdominal exam: Present: normal bowel sounds, soft. Absent: distended, tenderness - Extremities Exam Extremities exam: Present: normal inspection. Absent: joint swelling, pedal edema, tenderness - Neurological Exam Neurological exam: Present: alert, oriented X3, no focal deficits - Psychiatric Psychiatric exam: Present: normal affect, normal mood - Skin Skin exam: Present: dry, intact, normal color, warm - Additional findings Additional findings: Midline noted to the LUE with transparent dressing C/D/I. - VTE Documentation of Mechanical Device: Graduated compression elastic hosiery Consult Discharge Plan - Plan Instructions: Atrial Fibrillation (DC), Urinary Tract Infection in Men (DC), Sepsis (DC), Chronic Hypertension (DC), Anemia (GEN) Referrals: Alejandra Figueroa CNP [Advanced Practice Nurse] - 08/25/17 9:20 am Timothy Lr MD [Partnered Physician] - 09/11/17 11:30 am () Miguel Ayala MD [Primary Care Provider] - 08/14/17 10:15 am Prescriptions: Ampicillin 12 gm IV Q24H #28 vial Apixaban [Eliquis] 5 mg PO BID #60 tablet Diltiazem CD (24hr) [Cardizem CD] 180 mg PO DAILY #30 cap.er.24h Lactobacillus [Culturelle] 1 each PO BID #60 cap.sprink
== END 2017-08-11 10:33 | disposition home health service (06) | DRG 872 ==
LOC: 3ANU 22:54 → EMEROO 22:54 → SUATTDRO 08-02 05:01 → 3ANU 08-02 05:02
PROVIDERS: ADMIT Family Medicine; ATTEND Internal Medicine
PROC: ENDOEBX (2017-08-05 14:00)

== ENCOUNTER 2017-09-17 21:48 | Inpatient (IN) ==
[2017-09-17 22:28] LABS: Basophils % 0.4 %; Eosinophils # 0.1 K/mcL (0.0-0.6); Hematocrit 36.3 % (37.5-50.1); Hemoglobin 12.4 g/dL (12.9-16.9); Immature Granulocytes % 0.5 % (0-4); Lymphocytes % 9.8 %; Mean Corpuscular HGB Conc 34.2 g/dL (31.6-35.5); Mean Corpuscular Volume 87.9 fL (83.0-100.0); Monocytes # 0.9 K/mcL (0.0-1.3); Monocytes % 8.6 %; Neutrophils # 8.3 K/mcL (1.6-8.9); Nucleated Red Blood Cells 0.2 /100 WBC (0); Platelet Count 207 K/mcL (140-400); Red Blood Count 4.13 M/mcL (4.19-5.50); Red Cell Distribution Width 15.7 % (11.5-14.5); Segmented Neutrophils % 79.7 %
[2017-09-17 22:35] LABS: Bilirubin,Urine Negative (Negative); Blood,Urine Trace (Negative); Clarity,Urine Clear (Clear); Color,Urine Yellow (Yellow); Glucose,Urine (UA) Normal (Normal); Ketones,Urine Negative (Negative); Leukocyte Esterase,Urine Small (Negative); Nitrite,Urine Negative (Negative); PH,Urine 5.5 pH Units (5.0-8.0); Protein,Urine 100 mg/dL (Neg-Trace); Specific Gravity,Urine 1.024 (1.010-1.025); Urobilinogen,Urine Normal (Normal)
[2017-09-17 22:36] LABS: Bacteria,Urine None Seen per hpf (None-Few); Squamous Epithelial Cell,Urine Many per lpf (None-Few)
[2017-09-17 22:36] LABS: INR 1.4; Prothrombin Time 15.2 Seconds (9.4-12.1)
[2017-09-17 22:39] LABS: Activated Partial Thrombo Time 34.7 Seconds (26.0-36.0)
[2017-09-17 22:50] LABS: Troponin I 0.03 ng/mL (< 0.04)
[2017-09-17 22:50] LABS: Hyaline Casts,Urine Few per lpf (None-Few); Renal Epithelial Cells,Urine Few per hpf (None-Few)
[2017-09-17 22:51] LABS: Alanine Aminotransferase 13 Units/L (7-52); Albumin 4.3 g/dL (3.5-5.7); Albumin/Globulin Ratio 1.5 (1.1-2.2); Alkaline Phosphatase 103 Units/L (34-104); Aspartate Amino Transferase 21 Units/L (13-39); BUN/Creatinine Ratio 16 (6-26); Bilirubin,Direct 0.1 mg/dL (0.0-0.2); Bilirubin,Indirect 1.1 mg/dL (0.0-1.2); Bilirubin,Total 1.2 mg/dL (0.3-1.0); Blood Urea Nitrogen 16 mg/dL (8-23); Calcium 9.3 mg/dL (8.6-10.3); Carbon Dioxide 24 mEq/L (23-29); Chloride 105 mEq/L (98-107); Globulin 2.8 g/dL (2.4-3.5); Glucose 125 mg/dL (70-105); Osmolality,Calculated 291 (280-300); Phosphorous 2.9 mg/dL (2.7-4.5); Potassium 4.1 mEq/L (3.5-5.1); Sodium 139 mEq/L (136-145); Total Protein 7.1 g/dL (6.4-8.9); eGFR For African Americans > 60 (> 60); eGFR For Non-African Americans > 60 (> 60)
--- NOTE | 2017-09-18 00:34 | Emergency Department Note ---
Disposition Clinical Impression: Weakness Altered mental status Qualifiers: Altered mental status type: unspecified Qualified Code(s): R41.82 - Altered mental status, unspecified Disposition: Admitted As Inpatient Condition: Fair Referrals: Miguel Ayala MD [Primary Care Provider] - Forms: ED Satisfaction Letter Time of Disposition: 00:20 Altered Mental Status HPI - General Chief Complaint: ED Altered Mental Status Stated Complaint: very lethargic Time Seen by Provider: 09/17/17 21:54 Source: family, EMS Mode of arrival: ambulatory Limitations: no limitations Nursing Notes Reviewed: Yes Vital Signs Reviewed: Yes - History of Present Illness HPI Narrative: 87-year-old male presents emergency Department with concerns of altered mental status and weakness. states that he was at his usual state of health throughout the day, he then suddenly became weak about 2 hours prior to arrival. Patient had a fever of 101 prior to arrival to the emergency department. She did not give any medications but is down to 99 degrees INR reevaluation. Patient has a complicated health history over the past few months. He was initially diagnosed with bladder cancer, had a tumor resected and then became uroseptic. He was admitted to a hospital in [place], had multiple different hospital stays, recently admitted to a hospital in [place]. - Related Data Home Medications Medication Instructions Recorded Confirmed Aspirin [Lo-Dose Aspirin EC] 81 mg PO DAILY 08/02/17 08/02/17 Calcium Carbonate [Calcium] 1,200 mg PO DAILY 08/02/17 08/02/17 Cetirizine HCl 10 mg PO DAILY 08/02/17 08/02/17 Finasteride [Proscar] 5 mg PO DAILY 08/02/17 08/02/17 Lutein Extract/Zeaxanthin Ext 1 cap PO DAILY 08/02/17 08/02/17 [Lutein 15 mg Softgel] Rivaroxaban [Xarelto] 20 mg PO DAILY 08/02/17 08/02/17 Simvastatin [Zocor] 10 mg PO DAILY 08/02/17 08/02/17 Tamsulosin [Flomax] 0.4 mg PO DAILY 08/02/17 08/02/17 Previous Rx's Medication Instructions Recorded Ampicillin 12 gm IV Q24H #28 vial 08/10/17 Apixaban [Eliquis] 5 mg PO BID #60 tablet 08/10/17 Diltiazem CD (24hr) [Cardizem CD] 180 mg PO DAILY #30 cap.er.24h 08/10/17 Lactobacillus [Culturelle] 1 each PO BID #60 cap.sprink 08/10/17 Allergies Allergy/AdvReac Type Severity Reaction Status Date / Time No Known Allergies Allergy Verified 08/01/17 23:21 All systems ED: reviewed and negative except as stated. Review of Systems: As Per HPI Past Medical History - Past Medical History Attestation: Yes The following information was validated with the patient. Source: patient, old records reviewed, obtained from family Medical history: Reports: atrial fibrillation, cancer, CVA, hypertension, kidney stones, pulmonary embolus, valvular heart disease, other Surgical history: Reports: appendectomy, cholecystectomy, heart valve replacement, pacemaker Psychiatric history: Reports: no psych history - Social History Smoking Status: Former smoker Smokeless Tobacco Status: No Alcohol use: Reports: none Drug use: Reports: none Physical Exam PGeneral: Laying in bed with eyes closed, responds to repeated questioning but unable to give more than one word answers Skin: Warm, dry, intact Head: Normocephalic and atraumatic Neck: Supple, trachea midline and no tenderness Cardiovascular: RRR, no murmur, normal perfusion Respiratory: CTAB, no wheezing, cough, or respiratory distress Musculoskeletal: Normal strength, no tenderness, swelling or deformity GI: Soft, nontender, nondistended. Bowel sounds present Neuro: Patient moving all extremities although he does not follow commands for a full neurologic exam. Confused. - General General appearance: lethargic Course Vital Signs Temperature 99.0 F 09/17/17 21:55 Pulse Rate 96 09/17/17 21:55 Respiratory Rate 20 09/17/17 21:55 Blood Pressure 139/81 09/17/17 21:55 O2 Sat by Pulse Oximetry 96 09/17/17 21:55 Temperature 98.1 F 09/18/17 00:00 Pulse Rate 86 09/17/17 23:55 Respiratory Rate 20 09/17/17 23:55 Blood Pressure 143/113 09/17/17 23:55 O2 Sat by Pulse Oximetry 96 09/17/17 23:55 Oxygen Delivery Oxygen Delivery Room Air Altered Mental Status - MDM Narrative Medical decision making narrative: Patient improved from hit his altered mental status and was able to open his eyes and answer questions about 35 minutes to an hour after the initial evaluation. and daughter state that this is occurred multiple times over the past 2 weeks. Patient denies significant pain. Laboratory evaluation was largely within normal limits. Chest x-ray did not show acute infiltrate. Head CT did not show evidence of acute fracture or internal hemorrhage. Urinalysis was negative for urinary tract infection. Although I have concerns about possible bacteremia, the patient has a negative lactic acid level and does not have a leukocytosis. I will admit the patient overnight and have him observed for worsening of his symptoms. I spoke with the hospitalist regarding this patient who agreed with the plan. - Medical Records Medical records reviewed: Yes I reviewed the patient's medical records. - Lab Data Lab results reviewed: Yes I reviewed the patient's lab results. Result diagrams: 09/17/17 22:18 09/17/17 22:18 Lab Results 09/17/17 09/17/17 09/17/17 Range/Units 22:00 22:13 22:18 WBC 10.4 (4.3-11.1) K/mcL RBC 4.13 L (4.19-5.50) M/mcL Hgb 12.4 L (12.9-16.9) g/dL Hct 36.3 L (37.5-50.1) % MCV 87.9 (83.0-100.0) fL MCH 30.0 (28.0-33.3) pg MCHC 34.2 (31.6-35.5) g/dL RDW 15.7 H (11.5-14.5) % Plt Count 207 (140-400) K/mcL MPV 10.0 (9.4-12.4) fL Immature Gran % 0.5 (0-4) % Seg Neutrophils % 79.7 % Lymphocytes % 9.8 % Monocytes % 8.6 % Eosinophils % 1.0 % Basophils % 0.4 % Neutrophils # 8.3 (1.6-8.9) K/mcL Lymphocytes # 1.0 (0.6-4.6) K/mcL Monocytes # 0.9 (0.0-1.3) K/mcL Eosinophils # 0.1 (0.0-0.6) K/mcL Basophils # 0.0 (0.0-0.2) K/mcL Nucleated RBCs/100 WBC 0.2 H (0) /100 WBC PT (9.4-12.1) Seconds INR APTT (26.0-36.0) Seconds Sodium (136-145) mEq/L Potassium (3.5-5.1) mEq/L Chloride (98-107) mEq/L Carbon Dioxide (23-29) mEq/L BUN (8-23) mg/dL Creatinine (0.70-1.30) mg/dL Est GFR ( Amer) (> 60) Est GFR (Non-Af Amer) (> 60) BUN/Creatinine Ratio (6-26) Glucose (70-105) mg/dL POC Glucose 131 H (70-99) mg/dL Calculated Osmolality (280-300) Lactic Acid 1.8 (0.5-2.2) mmol/L Calcium (8.6-10.3) mg/dL Phosphorus (2.7-4.5) mg/dL Magnesium (1.6-2.6) mg/dL Total Bilirubin (0.3-1.0) mg/dL Direct Bilirubin (0.0-0.2) mg/dL Indirect Bilirubin (0.0-1.2) mg/dL AST (13-39) Units/L ALT (7-52) Units/L Alkaline Phosphatase (34-104) Units/L Troponin I (< 0.04) ng/mL Serum Total Protein (6.4-8.9) g/dL Albumin (3.5-5.7) g/dL Globulin (2.4-3.5) g/dL Albumin/Globulin Ratio (1.1-2.2) Urine Color (Yellow) Urine Clarity (Clear) Urine pH (5.0-8.0) pH Units Ur Specific [place] (1.010-1.025) Urine Protein (Neg-Trace) mg/dL Urine Glucose (UA) (Normal) mg/dL Urine Ketones (Negative) mg/dL Urine Blood (Negative) Urine Nitrite (Negative) Urine Bilirubin (Negative) Urine Urobilinogen (Normal) mg/dL Ur Leukocyte Esterase (Negative) Urine Microscopic RBC (0-3) per hpf Urine Microscopic WBC (0-3) per hpf Ur Squamous Epith Cells (None-Few) per lpf Ur Renal Epithelial Cell (None-Few) per hpf Urine Bacteria (None-Few) per hpf Hyaline Casts (None-Few) per lpf Ur Culture Indicated? (NO) 09/17/17 09/17/17 09/17/17 Range/Units 22:18 22:18 22:27 WBC (4.3-11.1) K/mcL RBC (4.19-5.50) M/mcL Hgb (12.9-16.9) g/dL Hct (37.5-50.1) % MCV (83.0-100.0) fL MCH (28.0-33.3) pg MCHC (31.6-35.5) g/dL RDW (11.5-14.5) % Plt Count (140-400) K/mcL MPV (9.4-12.4) fL Immature Gran % (0-4) % Seg Neutrophils % % Lymphocytes % % Monocytes % % Eosinophils % % Basophils % % Neutrophils # (1.6-8.9) K/mcL Lymphocytes # (0.6-4.6) K/mcL Monocytes # (0.0-1.3) K/mcL Eosinophils # (0.0-0.6) K/mcL Basophils # (0.0-0.2) K/mcL Nucleated RBCs/100 WBC (0) /100 WBC PT 15.2 H (9.4-12.1) Seconds INR 1.4 APTT 34.7 (26.0-36.0) Seconds Sodium 139 (136-145) mEq/L Potassium 4.1 (3.5-5.1) mEq/L Chloride 105 (98-107) mEq/L Carbon Dioxide 24 (23-29) mEq/L BUN 16 (8-23) mg/dL Creatinine 0.99 (0.70-1.30) mg/dL Est GFR ( Amer) > 60 (> 60) Est GFR (Non-Af Amer) > 60 (> 60) BUN/Creatinine Ratio 16 (6-26) Glucose 125 H (70-105) mg/dL POC Glucose (70-99) mg/dL Calculated Osmolality 291 (280-300) Lactic Acid (0.5-2.2) mmol/L Calcium 9.3 (8.6-10.3) mg/dL Phosphorus 2.9 (2.7-4.5) mg/dL Magnesium 2.0 (1.6-2.6) mg/dL Total Bilirubin 1.2 H (0.3-1.0) mg/dL Direct Bilirubin 0.1 (0.0-0.2) mg/dL Indirect Bilirubin 1.1 (0.0-1.2) mg/dL AST 21 (13-39) Units/L ALT 13 (7-52) Units/L Alkaline Phosphatase 103 (34-104) Units/L Troponin I 0.03 (< 0.04) ng/mL Serum Total Protein 7.1 (6.4-8.9) g/dL Albumin 4.3 (3.5-5.7) g/dL Globulin 2.8 (2.4-3.5) g/dL Albumin/Globulin Ratio 1.5 (1.1-2.2) Urine Color Yellow (Yellow) Urine Clarity Clear (Clear) Urine pH 5.5 (5.0-8.0) pH Units Ur Specific [place] 1.024 (1.010-1.025) Urine Protein 100 H (Neg-Trace) mg/dL Urine Glucose (UA) Normal (Normal) mg/dL Urine Ketones Negative (Negative) mg/dL Urine Blood Trace H (Negative) Urine Nitrite Negative (Negative) Urine Bilirubin Negative (Negative) Urine Urobilinogen Normal (Normal) mg/dL Ur Leukocyte Esterase Small H (Negative) Urine Microscopic RBC 3-5 H (0-3) per hpf Urine Microscopic WBC 5-15 H (0-3) per hpf Ur Squamous Epith Cells Many H (None-Few) per lpf Ur Renal Epithelial Cell Few (None-Few) per hpf Urine Bacteria None Seen (None-Few) per hpf Hyaline Casts Few (None-Few) per lpf Ur Culture Indicated? NO. A (NO) - Radiology Data Radiology results reviewed: Yes I reviewed the patient's radiology results. - EKG Data EKG attestation: Yes I reviewed and interpreted this EKG. EKG results narrative: Age fibrillation with a rate of 79 without evidence of STEMI. TPA Checklist - LKW: 3-4.5 hrs Add. Warnings/Precautions Patient/family understanding: The patient/family members have been counseled and understood the risk, benefit , and alternatives of treatment.
[2017-09-18] MEDS ORDERED: Naloxone 0.4 MG/ML INJ IVP PRN (02:08)
--- NOTE | 2017-09-18 02:17 | Internal Med History&Physical ---
Date of Encounter: 09/18/17 Time of Encounter: 01:00 Internal Medicine - H&P: HPI Chief complaint: Fever Admitted From: Home History of present illness: Mr. Fan is a 87 year old male presented to ER for fever. Past medical history is significant for A. fib, hx of pulmonary embolism, S/P PPM, S/P aortic valve replacement, bladder cancer s/p resection, history of CVA, history of bilateral total knee replacement, bacteremia. Patient was recently found bacteremia with several times blood culture positive. Patient will discharge to home on IV ampicillin for 4 weeks and adjust to finish the antibiotic course around 2 wks ago. This afternoon, patient to start have fever, lethargy, altered mental status. His temperature is high to 101.4. Patient denies headache, sore throat, cough, nausea or vomiting, abdominal pain, dysuria or increased urgency. In the emergency room, patient's temperature get down to normal and his mental status has improved to his baseline. Patient was admitted for further management. I have discussed that with the patient's regarding patient's CODE STATUS. Patient has documentation shows DNR CCA, which is confirmed by patient's . DNR CCA placed. Past Med Surg Social Fam HX - Past Medical History Medical history: atrial fibrillation, cancer, CVA, hypertension, kidney stones, pulmonary embolus, valvular heart disease, other Psychiatric history: no psych history - Past Surgical History Surgical History: appendectomy, cholecystectomy, heart valve replacement, pacemaker - Social History Smoking Status: Former smoker Smokeless Tobacco Status: No Alcohol use: none Drug use: none - Family History Father Living Status: Hx Family Cancer: Yes (Lung Ca.) Internal Medicine - H&P: Meds Aspirin [Lo-Dose Aspirin EC] 81 mg PO DAILY 08/02/17 [History] Calcium Carbonate [Calcium] 1,200 mg PO DAILY 08/02/17 [History] Cetirizine HCl 10 mg PO DAILY 08/02/17 [History] Finasteride [Proscar] 5 mg PO DAILY 08/02/17 [History] Lutein Extract/Zeaxanthin Ext [Lutein 15 mg Softgel] 1 cap PO DAILY 08/02/17 [ History] Rivaroxaban [Xarelto] 20 mg PO DAILY 08/02/17 [History] Simvastatin [Zocor] 10 mg PO DAILY 08/02/17 [History] Tamsulosin [Flomax] 0.4 mg PO DAILY 08/02/17 [History] Ampicillin 12 gm IV Q24H #28 vial 08/10/17 [Rx] Apixaban [Eliquis] 5 mg PO BID #60 tablet 08/10/17 [Rx] Diltiazem CD (24hr) [Cardizem CD] 180 mg PO DAILY #30 cap.er.24h 08/10/17 [Rx] Lactobacillus [Culturelle] 1 each PO BID #60 cap.sprink 08/10/17 [Rx] 3 Allergy/AdvReac Type Severity Reaction Status Date / Time No Known Allergies Allergy Verified 08/01/17 23:21 All Systems PM: A 10-system review of systems was performed and is negative for pertinent findings except as documented above in the HPI. - Constitutional Vitals: Temp Pulse Resp BP Pulse Ox 98.1 F 86 18 142/88 96 09/18/17 00:00 09/17/17 23:55 09/18/17 01:36 09/18/17 01:36 09/17/17 23:55 General appearance: Present: A&O X 3, no acute distress, answers questions appropriately - Head Head exam: Present: atraumatic, normocephalic - Eye Eye exam: Present: PERRL, conjuntiva pink, sclera anicteric Pupils: Present: PERRL - Neck Neck exam general surgery: Present: supple, trachea midline. Absent: lymphadenopathy - Respiratory Respiratory exam: Present: CTAB. Absent: accessory muscle use, rales, rhonchi, wheezes - Cardiovascular Cardiovascular exam: Present: irregular rhythm, +S1, +S2. Absent: diastolic murmur, gallop, rubs, systolic murmur - GI/Abdominal GI/Abdominal exam: Present: normal bowel sounds, soft, no peritoneal signs. Absent: distended, tenderness - Extremities Exam Extremities exam: Present: warm, radial pulses palpable and symmetrical. Absent : calf tenderness, cyanotic, pedal edema - Neurological Exam Neurological exam: Present: CN II-XII intact, oriented X3, no focal deficits. Absent: pronater drift, facial droop, speech deficit - Skin Skin exam: Present: dry, intact Internal Med - H&P Results - Labs CBC & Chem 7: 09/17/17 22:18 09/17/17 22:18 - EKG Data -: EKG Interpreted by Myself (A Fib with occasioal pacing rhythm) - Assessment and plan (1) Fever Current Visit: No Status: Acute Assessment and plan: Patient has recent bacteremia. Patient has finished antibiotic treatment. Patient has fever high to 101.4. Patient does not have leukocytosis, however, his WBC level is mild elevated from baseline. Patient does not meet sepsis criteria. Patient's fever has resolved spontaneously. - Blood culture has been sent again. - Old chart reviewed, previous blood culture positive for Enterococcus Faeculis , sensitivity to Vanco. Will Empirically start on Vanco. Waiting for blood culture results. - Consider ID consult in a.m. Qualifiers: Fever type: unspecified Qualified Code(s): R50.9 - Fever, unspecified (2) A-fib Current Visit: Yes Status: Acute Assessment and plan: Heart rate is well controlled. Continue Eliquis for anticoagulation Qualifiers: Atrial fibrillation type: chronic Qualified Code(s): I48.2 - Chronic atrial fibrillation (3) Altered mental status Current Visit: Yes Status: Acute Assessment and plan: Patient has a fever and altered mental status. Improved as fever resolved. Head CT unremarkable. Consider metabolic encephalopathy. Qualifiers: Altered mental status type: disorientation Qualified Code(s): R41.0 - Disorientation, unspecified (4) DVT prophylaxis Current Visit: No Status: Acute Assessment and plan: Patient is on Eliquis - Time Spent With Patient Total time spent is greater than 50% in coordination of care (as documented) at patient's floor/unit and/or counseling patient: 40 minutes Greater than 35 minutes
[2017-09-18 07:28] LABS: BUN/Creatinine Ratio 15 (6-26); Blood Urea Nitrogen 14 mg/dL (8-23); Calcium 8.8 mg/dL (8.6-10.3); Carbon Dioxide 25 mEq/L (23-29); Chloride 108 mEq/L (98-107); Glucose 106 mg/dL (70-105); Magnesium 1.9 mg/dL (1.6-2.6); Osmolality,Calculated 291 (280-300); Potassium 3.8 mEq/L (3.5-5.1); Sodium 140 mEq/L (136-145); eGFR For African Americans > 60 (> 60); eGFR For Non-African Americans > 60 (> 60)
[2017-09-18 07:34] LABS: Basophils % 0.4 %; Eosinophils # 0.1 K/mcL (0.0-0.6); Eosinophils % 1.3 %; Hematocrit 34.8 % (37.5-50.1); Hemoglobin 11.8 g/dL (12.9-16.9); Immature Granulocytes % 0.3 % (0-4); Lymphocytes # 0.8 K/mcL (0.6-4.6); Lymphocytes % 8.6 %; Mean Corpuscular HGB Conc 33.9 g/dL (31.6-35.5); Mean Corpuscular Hemoglobin 29.9 pg (28.0-33.3); Mean Corpuscular Volume 88.1 fL (83.0-100.0); Mean Platelet Volume 10.5 fL (9.4-12.4); Monocytes # 0.8 K/mcL (0.0-1.3); Monocytes % 9.3 %; Neutrophils # 7.2 K/mcL (1.6-8.9); Platelet Count 185 K/mcL (140-400); Red Blood Count 3.95 M/mcL (4.19-5.50); Red Cell Distribution Width 15.5 % (11.5-14.5); Segmented Neutrophils % 80.1 %
[2017-09-18] MEDS: Apixaban 5 MG TABLET PO SCH ×2 (08:22→21:05)
[2017-09-18] MEDS: Aspirin Enteric Coated 81 MG Tablet PO SCH (08:22)
[2017-09-18] MEDS: Diltiazem CD (24hr) 180 MG CAPSULE PO SCH (08:22)
[2017-09-18] MEDS: Lactobacillus 1 EACH CAP.SPRINK PO SCH ×2 (08:22→21:05)
--- NOTE | 2017-09-18 10:40 | Infectious Disease Consult ---
Date of Encounter: 09/18/17 Time of Encounter: 10:31 Assessment and Plan (1) Sepsis Status: Acute Assessment and plan: Patient has 2 SIRS criteria with fever and tachycardia Source is unclear but at this point UTI possible No evidence of end organ damage Blood cultures and urine cultures are pending Qualifiers: Sepsis type: sepsis due to unspecified organism Qualified Code(s): A41.9 - Sepsis, unspecified organism (2) Fever Status: Acute Assessment and plan: Source unclear, may be related to urinary tract infection MAXIMUM TEMPERATURE of 100.8 while in the hospital Blood and urine cultures pending 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 so agree with broad-spectrum empiric coverage with vancomycin and Zosyn Patient does have a pacemaker and bilateral knee replacement so he is at risk for seeding of these prosthetic devices Currently has 1 modified Nur criteria No other stigmata of endocarditis If blood cultures come back positive patient may require LUIGI Continue vancomycin IV with goal trough of 10 DC zosyn and start cefepime 2g q12h No further imaging at this time but if patient does not clinically respond or blood cultures become positive would recommend CT abd/pelvis Will check procalitonin Qualifiers: Fever type: unspecified Qualified Code(s): R50.9 - Fever, unspecified (3) Altered mental status Status: Acute Assessment and plan: Likely secondary to underlying infection, possible UTI Improving Plan as above Qualifiers: Altered mental status type: disorientation Qualified Code(s): R41.0 - Disorientation, unspecified (4) Pacemaker Status: Acute Assessment and plan: Given history of bacteremia patient is at risk for seeding of his pacemaker device If blood cultures are positive patient may warrant LUIGI (5) History of knee replacement Status: Acute Qualifiers: Laterality: bilateral Qualified Code(s): Z96.653 - Presence of artificial knee joint, bilateral (6) Atrial fibrillation with RVR Status: Acute (7) Status post transcatheter aortic valve replacement Status: Acute Infectious Disease HPI - Data of Consult Patient: known to practice within the last 3 years Consult date: 09/18/17 Requesting Physician: Aidee Christine Primary Care Provider: Miguel Ayala MD - Consult Narrative Reason for consult: Fever History of present illness: Mr. Fan is a 87 year old male with a past medical history of A. fib on several toe, hypertension, hyperlipidemia, recently diagnosed with bladder cancer status post tumor resection followed by urosepsis and posthemorrhagic anemia, remote history of pacemaker placement and TAVR in 2017. The patient was admitted to the hospital September 17 for fever. We are consulted on September 17 for further recommendations for fever. Patient is a 87-year-old male with past medical history as stated above. Patient was recently admitted in early July and treated for enterococcus bacteremia with 4 weeks of IV ampicillin completed on September 04. Patient had been recovering from this well with no adverse effects until earlier this week where the noticed that he had episodes of intermittent confusion tested by not recognizing his surroundings like he normally does. Yesterday the noted that the patient was extremely weak and lethargic and was unable to answer questions appropriately. The checked the patient's temperature home and the patient had a maximum temperature of 101.4 F home. At that point the called the squad and the patient was transported to the emergency department. During his hospital stay up to this point the patient has had a temperature of 100.8 Fahrenheit. feels that his strength and mental status have improved although are not back to baseline. White blood cell count on admission was 10.4 , urinalysis was positive for trace blood, protein 100, small leukocyte esterase with many squamous cells. During my exam today, the patient and his state that overall he looks and feels better. He is still somewhat lethargic and falls asleep during my exam but will wake up and answer questions appropriately. He does not appear to be in any acute distress. Review of systems including chest pain, shortness of breath, joint pain was negative other than stated above. The patient lives at home with his in [place], [place] and visits [place] every winter. He also traveled to [place] in January for his TAVR. He denies any tobacco, alcohol, or illicit drug use. CC: Aidee Christine Past Med Surg Social Fam HX - Past Medical History Medical history: atrial fibrillation, cancer, CVA, hypertension, kidney stones, pulmonary embolus, valvular heart disease, other Psychiatric history: no psych history - Past Surgical History Surgical History: appendectomy, cholecystectomy, heart valve replacement, pacemaker - Social History Smoking Status: Former smoker Smokeless Tobacco Status: No Alcohol use: none Drug use: none - Family History Father Living Status: Hx Family Cardiac Disorders: No Hx Family Respiratory Disorders: No Hx Family Cancer: Yes (Lung Ca.) Hx Family GI Disorders: No Hx Family Genitourinary Disorders: No Hx Family Endocrine Disorder: No Hx Family Musculoskeletal Disorders: No Hx Family Neuromuscular Disorders: No Hx Family Neurologic Disorders: No Hx Family HEENT Disorders: No Hx Family Autoimmune Disorders: No Hx Family Reproductive Disorders: No Hx Family Psychosocial Disorders: No Hx Family Medical Disorders: No Infectious Disease-CN:Meds Aspirin [Lo-Dose Aspirin EC] 81 mg PO DAILY 08/02/17 [History] Calcium Carbonate [Calcium] 1,200 mg PO DAILY 08/02/17 [History] Cetirizine HCl 10 mg PO DAILY 08/02/17 [History] Finasteride [Proscar] 5 mg PO DAILY 08/02/17 [History] Lutein Extract/Zeaxanthin Ext [Lutein 15 mg Softgel] 1 cap PO DAILY 08/02/17 [ History] Simvastatin [Zocor] 10 mg PO DAILY 08/02/17 [History] Tamsulosin [Flomax] 0.4 mg PO DAILY 08/02/17 [History] Apixaban [Eliquis] 5 mg PO BID #60 tablet 08/10/17 [Rx] Diltiazem CD (24hr) [Cardizem CD] 180 mg PO DAILY #30 cap.er.24h 08/10/17 [Rx] Lactobacillus [Culturelle] 1 each PO BID #60 cap.sprink 08/10/17 [Rx] Ferrous Sulfate [Iron] 325 mg PO DAILY 09/18/17 [History] 3 Allergy/AdvReac Type Severity Reaction Status Date / Time No Known Allergies Allergy Verified 08/01/17 23:21 ROS unobtainable: due to mental status (Patient lethargic and not able to participate in a full review of systems) Exam - Constitutional Vitals: Temp Pulse Resp BP Pulse Ox 98.9 F 111 16 112/72 95 09/18/17 08:13 09/18/17 08:13 09/18/17 08:13 09/18/17 08:13 09/18/17 08:13 General appearance: cooperative, no acute distress - Head Head exam: Present: atraumatic, normal inspection, normocephalic - Respiratory Respiratory exam: Present: CTAB. Absent: rales, rhonchi, wheezes - Cardiovascular Cardiovascular exam: Present: clicks, irregular rhythm, tachycardia. Absent: diastolic murmur, systolic murmur - GI/Abdominal GI/Abdominal exam: Present: normal bowel sounds, soft. Absent: distended, tenderness - Extremities Exam Extremities exam: Absent: pedal edema Additional comments: No joint effusion or erythema - Neurological Exam Neurological exam: Present: alert, altered, no focal deficits. Absent: facial droop, speech deficit - Psychiatric Psychiatric exam: Present: normal affect, normal mood - Skin Skin exam: Present: dry, intact, warm Infectious Disease CN: Results - Labs CBC & Chem 7: 09/18/17 06:47 09/18/17 06:47 Consult Discharge Plan - Plan Referrals: Miguel Ayala MD [Primary Care Provider] - - Attending Attestation I examined this patient and my medical decision-making was reviewed with the Resident Physician. I agree with the documented findings, disposition and treatment plan as described except to the extent set forth below. This is an addendum to original report dictated by resident physician. Please refer to resident's note for full detail. Patient is an 87-year-old gentleman who is well-known to our service was seen by us previously for complicated enterococcus bacteremia. The source of the enterococcus bacteremia was thought to be the latter. Patient does have prostatic knees on both sides also has by prostatic heart valve and then AICD. Workup was negative for endocarditis and we decided to treat with ampicillin for 4 weeks. Patient's ampicillin was stopped 2 weeks ago exactly. About a week ago patient was having confusion and weak and tired. tells me that he was not feeling great he had no appetite. Patient took his temperature day prior to admission and it was 100.4 Fahrenheit. Review of system is negative for any URI symptoms no runny nose no sore throat no cough no chest pain or shortness of breath. Patient had no nausea or vomiting no abdominal pain no diarrhea or constipation. Patient denies any urinary symptoms. Denies any rash. She denies any joint pain or effusion. Review of system was really unremarkable other for the altered mental status and the fever. Physical exam is negative for endocarditis with moderate on the skin. Negative consult for conjunctival hemorrhage. No new murmur audible in the heart. Physical exam is really otherwise unremarkable. Assessment and plan: 1.sepsis -etiology not clear. Not sure where the source of infection is. Index of suspicion include urinary tract infection but I am concerned of recurrent bacteremia or endocarditis. 2.altered mental status - likely due to metabolic encephalopathy from sepsis. CT head was negative. 3.bladder cancer - no chemotherapy or radiation. It was surgically removed in May and clinically patient is doing well. Being followed by urology. 4.status post bilateral knee replacement and bioprosthetic valve - physical exam not suggestive of endocarditis. Previous LUIGI on previous admission was negative. If recurrence of bacteremia will need to repeat LUIGI to make sure that there is no endocarditis. 5.history of bilateral knee arthroplasties.- No signs of prosthetic joint infection on physical exam. Patient denies any pain. 6.atrial fibrillation Recommendations: At this point patient is on vancomycin and Zosyn. Patient is 87 and I do worry about kidney function. I will switch him to vancomycin and cefepime for broad coverage until the rest of the workup comes back. Once cultures are finalized from either the urine or the blood we will tailor antibiotics accordingly. Goal vancomycin trough 10 Creatinine clearance is a 71 so we will give cefepime 2 g IV every 12 hours Await cultures to finalize including a repeat urine culture was done today and the blood cultures. Monitor labs and for drug toxicity Discussed at length with and patient. Discussed with the hospitalist team and I told him that I am not in the hospital over the long weekend but if they need me they should call or fax my cell phone.
[2017-09-18 13:57] LABS: Acinetobacter baumannii by PCR Not Detected (Not Detect); Candida albicans by PCR Not Detected (Not Detect); Candida glabrata by PCR Not Detected (Not Detect); Candida krusei by PCR Not Detected (Not Detect); Candida parapsilosis by PCR Not Detected (Not Detect); Candida tropicalis by PCR Not Detected (Not Detect); Escherichia coli by PCR Not Detected (Not Detect); Klebsiella oxytoca by PCR Not Detected (Not Detect); Klebsiella pneumoniae by PCR Not Detected (Not Detect); Pseudomonas aeruginosa by PCR Not Detected (Not Detect); Serratia marcescens by PCR Not Detected (Not Detect); Staphylococcus aureus by PCR Not Detected (Not Detect); Streptococcus agalactiae(B)PCR Not Detected (Not Detect); Streptococcus by PCR Not Detected (Not Detect); Streptococcus pneumoniae PCR Not Detected (Not Detect); Streptococcus pyogenes (A) PCR Not Detected (Not Detect); blaKPC Carbapenem-Resist Gene Not Detected (Not Detect); mecA Methicillin-Resist Gene Not Detected (Not Detect); vanA/B Vancomycin-Resist Genes Not Detected (Not Detect)
[2017-09-18 13:58] LABS: Enterococcus by PCR ***DETECTED*** (Not Detect)
[2017-09-18] MEDS ORDERED: Piperacillin/Tazobactam 3.375 GM in 0.9 % Sodium Chloride Mini Bag 100 ML IVPB SCH (16:00)
--- NOTE | 2017-09-18 18:15 | Internal Med Progress Note ---
Date of Encounter: 09/18/17 Time of Encounter: 11:00 - Assessment and plan (1) Bacteremia Current Visit: No Status: Acute Assessment and plan: Patient found to have gram-positive cocci in blood with a MAXIMUM TEMPERATURE of 100.8. We will continue IV vancomycin started on 09/18/17 Infectious disease consulted and appreciate recommendations. (2) Altered mental status Current Visit: Yes Status: Acute Assessment and plan: Secondary to infection with bacteremia Head CT unremarkable. Management as above Qualifiers: Altered mental status type: disorientation Qualified Code(s): R41.0 - Disorientation, unspecified (3) A-fib Current Visit: Yes Status: Acute Assessment and plan: Heart rate is well controlled. Continue Eliquis for anticoagulation Qualifiers: Atrial fibrillation type: chronic Qualified Code(s): I48.2 - Chronic atrial fibrillation (4) DVT prophylaxis Current Visit: No Status: Acute Assessment and plan: Patient is on Eliquis - Time Spent With Patient Total time spent is greater than 50% in coordination of care (as documented) at patient's floor/unit and/or counseling patient: - Subjective Interval history: Patient with fevers overnight and with confusion. Patient found to have positive blood cultures for gram-positive cocci. - Constitutional Vitals: Temp Pulse Resp BP Pulse Ox 97.8 F 84 15 133/71 97 09/18/17 16:27 09/18/17 16:27 09/18/17 16:27 09/18/17 16:27 09/18/17 16:27 General appearance: Present: A&O X 1, A&O X 3, no acute distress, answers questions appropriately - Respiratory Respiratory exam: Present: CTAB. Absent: accessory muscle use, rales, rhonchi, wheezes - Cardiovascular Cardiovascular exam: Present: RRR, +S1, +S2. Absent: diastolic murmur, gallop, rubs, systolic murmur Internal Medicine: Result - Labs CBC & Chem 7: 09/18/17 06:47 09/18/17 06:47 Labs: Short CBC 09/18/17 Range/Units 06:47 WBC 8.9 (4.3-11.1) K/mcL Hgb 11.8 L (12.9-16.9) g/dL Hct 34.8 L (37.5-50.1) % Plt Count 185 (140-400) K/mcL Neutrophils # 7.2 (1.6-8.9) K/mcL BMP 09/18/17 06:47 Sodium 140 Potassium 3.8 Chloride 108 H Carbon Dioxide 25 BUN 14 Creatinine 0.96 Glucose 106 H Calcium 8.8 - ABG Interpretation ABG results: PT/INR, D-dimer PT 15.2 Seconds (9.4-12.1) H 09/17/17 22:18 Consult Discharge Plan - Plan Referrals: Miguel Ayala MD [Primary Care Provider] -
[2017-09-18] MEDS: Cefepime HCl 2,000 MG in Water for inj. (sterile) 20 ML 20 ML IVP SCH (18:53)
[2017-09-19] MEDS: Cefepime HCl 2,000 MG in Water for inj. (sterile) 20 ML 20 ML IVP SCH ×2 (06:37→17:53)
--- NOTE | 2017-09-19 08:23 | Electrocardiograph Report ---
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
[2017-09-19] MEDS ORDERED: Aminoglycoside Consult 1 EACH MC ONE (09:22)
[2017-09-19] MEDS: Lactobacillus 1 EACH CAP.SPRINK PO SCH ×2 (09:37→20:43)
[2017-09-19] MEDS: Diltiazem CD (24hr) 180 MG CAPSULE PO SCH (09:37)
[2017-09-19] MEDS: Apixaban 5 MG TABLET PO SCH ×2 (09:37→20:42)
[2017-09-19] MEDS: Aspirin Enteric Coated 81 MG Tablet PO SCH (09:37)
[2017-09-19 10:34] LABS: Basophils % 0.5 %; Eosinophils # 0.2 K/mcL (0.0-0.6); Eosinophils % 2.8 %; Hematocrit 36.1 % (37.5-50.1); Hemoglobin 12.1 g/dL (12.9-16.9); Immature Granulocytes % 0.3 % (0-4); Lymphocytes # 1.3 K/mcL (0.6-4.6); Lymphocytes % 16.2 %; Mean Corpuscular HGB Conc 33.5 g/dL (31.6-35.5); Mean Corpuscular Hemoglobin 29.7 pg (28.0-33.3); Mean Corpuscular Volume 88.5 fL (83.0-100.0); Monocytes # 0.8 K/mcL (0.0-1.3); Monocytes % 9.6 %; Neutrophils # 5.5 K/mcL (1.6-8.9); Platelet Count 188 K/mcL (140-400); Red Blood Count 4.08 M/mcL (4.19-5.50); Red Cell Distribution Width 15.5 % (11.5-14.5); Segmented Neutrophils % 70.6 %
[2017-09-19 10:48] LABS: BUN/Creatinine Ratio 17 (6-26); Blood Urea Nitrogen 19 mg/dL (8-23); Calcium 9.2 mg/dL (8.6-10.3); Carbon Dioxide 27 mEq/L (23-29); Chloride 108 mEq/L (98-107); Glucose 161 mg/dL (70-105); Osmolality,Calculated 302 (280-300); Potassium 4.1 mEq/L (3.5-5.1); Sodium 143 mEq/L (136-145); eGFR For African Americans > 60 (> 60); eGFR For Non-African Americans > 60 (> 60)
--- NOTE | 2017-09-19 16:34 | Internal Med Progress Note ---
Date of Encounter: 09/19/17 Time of Encounter: 11:00 - Assessment and plan (1) Bacteremia Current Visit: No Status: Acute Assessment and plan: Patient found to have gram-positive cocci in blood but patient has been afebrile now without leukocytosis; cultures pending Continue IV vancomycin started on 09/18/17 Infectious disease consulted and appreciate recommendations. (2) Altered mental status Current Visit: Yes Status: Resolved Assessment and plan: Resolved; suspect secondary to infection with bacteremia with underlining dementia Head CT unremarkable. Continue to monitor Qualifiers: Altered mental status type: disorientation Qualified Code(s): R41.0 - Disorientation, unspecified (3) A-fib Current Visit: Yes Status: Acute Assessment and plan: Heart rate is well controlled. Continue Eliquis for anticoagulation Qualifiers: Atrial fibrillation type: chronic Qualified Code(s): I48.2 - Chronic atrial fibrillation (4) DVT prophylaxis Current Visit: No Status: Acute Assessment and plan: Patient is on Eliquis - Time Spent With Patient Total time spent is greater than 50% in coordination of care (as documented) at patient's floor/unit and/or counseling patient: - Subjective Interval history: Patient no longer with fevers overnight and with confusion. Patient found to have positive blood cultures for gram-positive cocci; cultures pending - Constitutional Vitals: Temp Pulse Resp BP Pulse Ox 97.7 F 75 14 103/66 97 09/19/17 15:25 09/19/17 15:25 09/19/17 15:25 09/19/17 15:25 09/19/17 15:25 General appearance: Present: A&O X 1, A&O X 2, A&O X 3, no acute distress, answers questions appropriately - Respiratory Respiratory exam: Present: CTAB. Absent: accessory muscle use, rales, rhonchi, wheezes - Cardiovascular Cardiovascular exam: Present: RRR, +S1, +S2. Absent: diastolic murmur, gallop, rubs, systolic murmur Internal Medicine: Result - Labs CBC & Chem 7: 09/19/17 10:17 09/19/17 10:17 Labs: Short CBC 09/19/17 Range/Units 10:17 WBC 7.8 (4.3-11.1) K/mcL Hgb 12.1 L (12.9-16.9) g/dL Hct 36.1 L (37.5-50.1) % Plt Count 188 (140-400) K/mcL Neutrophils # 5.5 (1.6-8.9) K/mcL BMP 09/19/17 10:17 Sodium 143 Potassium 4.1 Chloride 108 H Carbon Dioxide 27 BUN 19 Creatinine 1.13 Glucose 161 H Calcium 9.2 - ABG Interpretation ABG results: PT/INR, D-dimer PT 15.2 Seconds (9.4-12.1) H 09/17/17 22:18 Consult Discharge Plan - Plan Referrals: Miguel Ayala MD [Primary Care Provider] -
[2017-09-20] MEDS: Cefepime HCl 2,000 MG in Water for inj. (sterile) 20 ML 20 ML IVP SCH (06:07)
[2017-09-20] MEDS: Lactobacillus 1 EACH CAP.SPRINK PO SCH ×2 (10:40→22:25)
[2017-09-20] MEDS: Apixaban 5 MG TABLET PO SCH ×2 (10:40→22:25)
[2017-09-20] MEDS: Diltiazem CD (24hr) 180 MG CAPSULE PO SCH (10:40)
[2017-09-20] MEDS: Aspirin Enteric Coated 81 MG Tablet PO SCH (10:40)
[2017-09-20] MEDS: Ampicillin 2 GM in 0.9 % Sodium Chloride Mini Bag 100 ML IVPB SCH ×3 (11:58→22:25)
--- NOTE | 2017-09-20 22:17 | Internal Med Progress Note ---
Date of Encounter: 09/20/17 Time of Encounter: 19:00 - Assessment and plan (1) Bacteremia Current Visit: Yes Status: Acute Assessment and plan: Enterococcus faecalis is growing, in the blood cultures from September 17. It is sensitive to ampicillin. It is also sensitive to vancomycin and linezolid. Will substitute the vancomycin, cefepime and piperacillin with IV ampicillin, as advised by the pharmacy. (2) Enterococcus faecalis infection Current Visit: Yes Status: Acute Assessment and plan: See above. (3) Urinary tract infection due to Enterococcus Current Visit: Yes Status: Acute (4) A-fib Current Visit: Yes Status: Chronic Assessment and plan: It is a chronic condition. It is rate controled.He takes diltiazem, extended- release. He takes apixaban. Qualifiers: Qualified Code(s): I48.2 - Chronic atrial fibrillation - Time Spent With Patient Total time spent is greater than 50% in coordination of care (as documented) at patient's floor/unit and/or counseling patient: 25 - 35 minutes - Subjective Interval history: The patient seems to be confused. It is less than yesterday. Denies chest pain. Denies abdominal pain, nausea and vomiting. She denies urinary symptoms. - Constitutional Vitals: Temp Pulse Resp BP Pulse Ox 98.3 F 74 16 125/68 97 09/20/17 18:50 09/20/17 18:50 09/20/17 18:50 09/20/17 18:50 09/20/17 18:50 General appearance: Present: A&O X 2, no acute distress - Respiratory Respiratory exam: Present: CTAB. Absent: accessory muscle use, rales, rhonchi, wheezes - Cardiovascular Cardiovascular exam: Present: RRR, +S1, +S2. Absent: diastolic murmur, gallop, rubs, systolic murmur - GI/Abdominal GI/Abdominal exam: Present: normal bowel sounds, soft, no peritoneal signs. Absent: distended, tenderness - Skin Skin exam: Present: dry, intact Internal Medicine: Result - Labs CBC & Chem 7: 09/24/17 11:19 09/23/17 04:59 - ABG Interpretation ABG results: PT/INR, D-dimer PT 15.2 Seconds (9.4-12.1) H 09/17/17 22:18 Consult Discharge Plan - Plan Additional Instructions: F/up with PCP in 1-2 weeks F/up with ID in 2 weeks Referrals: Miguel Ayala MD [Primary Care Provider] - Prescriptions: risperiDONE [Risperidone] 0.5 mg PO HS 5 Days #5 tablet
[2017-09-21] MEDS: Ampicillin 2 GM in 0.9 % Sodium Chloride Mini Bag 100 ML IVPB SCH ×6 (01:22→19:59)
[2017-09-21] MEDS: Diltiazem CD (24hr) 180 MG CAPSULE PO SCH (09:39)
[2017-09-21] MEDS: Apixaban 5 MG TABLET PO SCH ×2 (09:39→19:58)
[2017-09-21] MEDS: Lactobacillus 1 EACH CAP.SPRINK PO SCH ×2 (09:39→19:58)
[2017-09-21] MEDS: Aspirin Enteric Coated 81 MG Tablet PO SCH (09:39)
--- NOTE | 2017-09-21 23:04 | Internal Med Progress Note ---
Date of Encounter: 09/21/17 Time of Encounter: 19:00 - Assessment and plan (1) Bacteremia Current Visit: Yes Status: Acute Assessment and plan: Will keep him on IV ampicillin. Will arrange for IV antibiotics at home tomorrow morning. We may also consider sending him home on oral linezolid. (2) Enterococcus faecalis infection Current Visit: Yes Status: Acute Assessment and plan: This is he a second infection with Enterococcus faecalis in the last several weeks. He was recently treated with IV ampicillin at home. (3) Urinary tract infection due to Enterococcus Current Visit: Yes Status: Acute (4) A-fib Current Visit: Yes Status: Chronic Assessment and plan: It is a chronic problem. Will continue diltiazem and apixaban. Qualifiers: Atrial fibrillation type: chronic Qualified Code(s): I48.2 - Chronic atrial fibrillation - Time Spent With Patient Total time spent is greater than 50% in coordination of care (as documented) at patient's floor/unit and/or counseling patient: 25 - 35 minutes - Subjective Interval history: His confusion subsided. I talked to him and his . The patient denies having pain. He denies urinary symptoms. There is no fever or chills. - Constitutional Vitals: Temp Pulse Resp BP Pulse Ox 98.5 F 85 15 132/77 97 09/21/17 19:38 09/21/17 19:38 09/21/17 19:38 09/21/17 19:38 09/21/17 20:09 General appearance: Present: A&O X 3, no acute distress, answers questions appropriately - Respiratory Respiratory exam: Present: CTAB. Absent: accessory muscle use, rales, rhonchi, wheezes - Cardiovascular Cardiovascular exam: Present: RRR, +S1, +S2. Absent: diastolic murmur, gallop, rubs, systolic murmur - GI/Abdominal GI/Abdominal exam: Present: normal bowel sounds, soft, no peritoneal signs. Absent: distended, tenderness - Skin Skin exam: Present: dry, intact Internal Medicine: Result - Labs CBC & Chem 7: 09/24/17 11:19 09/23/17 04:59 - ABG Interpretation ABG results: PT/INR, D-dimer PT 15.2 Seconds (9.4-12.1) H 09/17/17 22:18 Consult Discharge Plan - Plan Additional Instructions: F/up with PCP in 1-2 weeks F/up with ID in 2 weeks Referrals: Miguel Ayala MD [Primary Care Provider] - Prescriptions: risperiDONE [Risperidone] 0.5 mg PO HS 5 Days #5 tablet
[2017-09-22] MEDS ORDERED: *HR* LORazepam 2 MG/ML VIAL ONE (00:46)
[2017-09-22] MEDS ORDERED: Haloperidol Lactate 5 MG/ML VIAL ONE ×3 (00:53→01:30)
--- NOTE | 2017-09-22 01:43 | Event Note ---
Date of Encounter: 09/22/17 Time of Encounter: 01:00 Called to bedside at 0045 for severe agitation. Patient continues to be agitated despite multiple nurses holding him down. Patient had to be put on 4 point restraints, but he continues to try to punch and spit at nursing staff and myself. 1mg Ativan ineffective and 2mg Haldol administered at approximately 0100. Rechecked patient's status at 0115, agitation unimproved and multiple nurses still required to restrain him. Additional 5mg Haldol administered and patient becomes less agitated/more sedated at approximately 0130. 3mg Haldol prn ordered for continued agitation. 4 point soft restraints and sitter ordered. Patient currently stable and sleeping.
[2017-09-22] MEDS ORDERED: *HR* LORazepam 2 MG/ML VIAL IVP ONE (01:46)
[2017-09-22] MEDS ORDERED: Haloperidol Lactate 5 MG/ML VIAL IVP PRN (01:47)
[2017-09-22] MEDS ORDERED: Haloperidol Lactate 5 MG/ML VIAL IVP ONE ×2 (01:47)
[2017-09-22] MEDS: Ampicillin 2 GM in 0.9 % Sodium Chloride Mini Bag 100 ML IVPB SCH ×7 (03:45→23:26)
[2017-09-22 05:48] LABS: Basophils % 0.4 %; Eosinophils # 0.2 K/mcL (0.0-0.6); Eosinophils % 2.3 %; Hematocrit 36.9 % (37.5-50.1); Hemoglobin 12.1 g/dL (12.9-16.9); Immature Granulocytes % 0.3 % (0-4); Mean Corpuscular HGB Conc 32.8 g/dL (31.6-35.5); Mean Corpuscular Hemoglobin 28.5 pg (28.0-33.3); Mean Corpuscular Volume 86.8 fL (83.0-100.0); Mean Platelet Volume 10.3 fL (9.4-12.4); Monocytes # 0.9 K/mcL (0.0-1.3); Monocytes % 8.9 %; Neutrophils # 6.8 K/mcL (1.6-8.9); Platelet Count 257 K/mcL (140-400); Red Blood Count 4.25 M/mcL (4.19-5.50); Red Cell Distribution Width 15.3 % (11.5-14.5); Segmented Neutrophils % 68.1 %
[2017-09-22 06:45] LABS: BUN/Creatinine Ratio 24 (6-26); Blood Urea Nitrogen 23 mg/dL (8-23); Calcium 9.1 mg/dL (8.6-10.3); Carbon Dioxide 23 mEq/L (23-29); Chloride 110 mEq/L (98-107); Glucose 109 mg/dL (70-105); Magnesium 2.2 mg/dL (1.6-2.6); Osmolality,Calculated 300 (280-300); Potassium 3.8 mEq/L (3.5-5.1); Sodium 143 mEq/L (136-145); eGFR For African Americans > 60 (> 60); eGFR For Non-African Americans > 60 (> 60)
[2017-09-22] MEDS: Aspirin Enteric Coated 81 MG Tablet PO SCH (10:33)
[2017-09-22] MEDS: Apixaban 5 MG TABLET PO SCH ×2 (10:33→21:22)
[2017-09-22] MEDS: Lactobacillus 1 EACH CAP.SPRINK PO SCH ×2 (10:33→21:22)
[2017-09-22] MEDS: Diltiazem CD (24hr) 180 MG CAPSULE PO SCH (10:33)
--- NOTE | 2017-09-22 11:07 | Infectious Disease Progress No ---
Date of Encounter: 09/22/17 Time of Encounter: 11:05 - Assessment and Plan (1) Sepsis Current Visit: Yes Status: Acute Patient had 2 SIRS criteria with fever and tachycardia Resolved at this time Source is bacteremia No evidence of end organ damage Blood cultures positive for Enterococcus faecalis Urine culture positive for yeast species Currently on ampicillin 2 g every 4 hours Will add rocephin 2g q12h Qualifiers: Sepsis type: sepsis due to unspecified organism Qualified Code(s): A41.9 - Sepsis, unspecified organism (2) Bacteremia Current Visit: No Status: Acute Causative organism enterococcus faecalis Sources this time is unclear but 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 Blood cultures drawn on September 17 2 sets are positive Repeat blood cultures drawn today, September 22, are pending Patient recently discontinued a course of 6 weeks antibiotics for bacteremia with ampicillin Continue ampicillin 2 g every 4 hours Will add rocephin 2g q12h Patient has 2 minor modified Nur criteria If patient remains persistently bacteremic patient will require LUIGI for evaluation of his pacemaker lead and bioprosthetic valve Patient does have artificial knee joints however there is no sign of septic arthritis Consider CT Abd/pelvis Continue to monitor renal function and dose adjust antibiotics based on creatinine clearance Creatinine clearance 61 (3) UTI (urinary tract infection) Current Visit: No Status: Acute Urine culture preliminary positive for yeast species. Likely contaminate Will hold off on treating at this time Qualifiers: Urinary tract infection type: site unspecified Hematuria presence: with hematuria Qualified Code(s): N39.0 - Urinary tract infection, site not specified; R31.9 - Hematuria, unspecified; R31.9 - Hematuria, unspecified (4) Altered mental status Current Visit: Yes Status: Resolved Likely delirium in the setting of hospitalization and infection Further management per primary Qualifiers: Altered mental status type: disorientation Qualified Code(s): R41.0 - Disorientation, unspecified (5) Pacemaker Current Visit: No Status: Acute Patient has a pacemaker present with recurrent bacteremia. Repeat blood culture pending Blood cultures remained persistently positive patient will require LUIGI for evaluation of his pacemaker and valves (6) History of knee replacement Current Visit: Yes Status: Acute Qualifiers: Laterality: bilateral Qualified Code(s): Z96.653 - Presence of artificial knee joint, bilateral (7) Atrial fibrillation with RVR Current Visit: No Status: Acute (8) Status post transcatheter aortic valve replacement Current Visit: No Status: Acute - Subjective Interval history: Patient seen and examined at bedside. Patient states he feels okay this morning. He had an acute episode of confusion and agitation overnight. He denies fever, chills, chest pain, shortness of breath, cough, joint pain or swelling Infect Dis PN-Objective Data - Labs CBC & Chem 7: 09/22/17 05:13 09/22/17 05:13 Labs: Laboratory Results - last 24 hr 09/22/17 09/22/17 05:13 05:13 WBC 9.9 RBC 4.25 Hgb 12.1 L Hct 36.9 L MCV 86.8 MCH 28.5 MCHC 32.8 RDW 15.3 H Plt Count 257 MPV 10.3 Immature Gran % 0.3 Seg Neutrophils % 68.1 Lymphocytes % 20.0 Monocytes % 8.9 Eosinophils % 2.3 Basophils % 0.4 Neutrophils # 6.8 Lymphocytes # 2.0 Monocytes # 0.9 Eosinophils # 0.2 Basophils # 0.0 Sodium 143 Potassium 3.8 Chloride 110 H Carbon Dioxide 23 BUN 23 Creatinine 0.94 Est GFR ( Amer) > 60 Est GFR (Non-Af Amer) > 60 BUN/Creatinine Ratio 24 Glucose 109 H Calculated Osmolality 300 Calcium 9.1 Magnesium 2.2 Exam - Constitutional Vitals: Temp Pulse Resp BP Pulse Ox 97.9 F 73 16 125/61 97 09/22/17 09:05 09/22/17 09:05 09/22/17 09:05 09/22/17 09:05 09/22/17 09:05 General appearance: cooperative, no acute distress - Respiratory Respiratory exam: Present: CTAB. Absent: rales, rhonchi, wheezes - Cardiovascular Cardiovascular exam: Present: irregular rhythm. Absent: diastolic murmur, systolic murmur, tachycardia - GI/Abdominal GI/Abdominal exam: Present: normal bowel sounds, soft. Absent: distended, tenderness - Extremities Exam Additional comments: No knee swelling or effusions noted bilaterally - Neurological Exam Neurological exam: Present: alert, no focal deficits. Absent: oriented X3 Consult Discharge Plan - Plan Referrals: Miguel Ayala MD [Primary Care Provider] - - Attending Attestation I examined this patient and my medical decision-making was reviewed with the Resident Physician. I agree with the documented findings, disposition and treatment plan as described except to the extent set forth below.
[2017-09-22] MEDS: cefTRIAXone 2,000 MG in Water for inj. (sterile) 20 ML 20 ML IVP SCH ×2 (13:08→23:25)
[2017-09-22] MEDS ORDERED: Isovue-370 500 ML INFUS..BTL IV ONE (16:48)
--- NOTE | 2017-09-22 16:52 | Internal Med Progress Note ---
Date of Encounter: 09/22/17 Time of Encounter: 11:35 - Assessment and plan (1) Bacteremia Current Visit: Yes Status: Acute Assessment and plan: Patient was noted to have enterococcus bacteremia in July 2017 with multiple positive blood cultures, was discharged home on IV ampicillin and completed a 4 week course, recently completed. Admitted again for altered mental status and fever. 2 out of 2 blood cultures from September 17 grows Enterococcus faecalis, sensitive to ampicillin. Repeat blood cultures from September 22 are pending. Continue IV ampicillin for now. Patient underwent transesophageal echocardiogram during last admission, which was negative. Case discussed with ID-given his persistent bacteremia, suspect seeding in pacemaker or prosthetic aortic valve. Will check TTE and consider repeat LUIGI as indicated; check CT abdomen/pelvis to rule out other source of infection. (2) DVT prophylaxis Current Visit: Yes Status: Acute (3) A-fib Current Visit: Yes Status: Chronic Assessment and plan: Currently rate controlled. Continue Eliquis for correction anticoagulation; Qualifiers: Atrial fibrillation type: chronic Qualified Code(s): I48.2 - Chronic atrial fibrillation (4) Acute encephalopathy Current Visit: Yes Status: Acute Assessment and plan: likely due to sundowning/hospitalization/underlying infection; has been on one- on-one watch for safety. Continue supportive care and when necessary Haldol. No further episodes of psychosis since last night. - Time Spent With Patient Total time spent is greater than 50% in coordination of care (as documented) at patient's floor/unit and/or counseling patient: - Subjective Interval history: Patient is drowsy, unable to provide any history. Plan of care discussed with patient's at bedside. Per nursing notes, patient was noted to be extremely agitated and aggressive last night, received multiple doses of Ativan and Haldol, which may be making him drowsy at this time. - Constitutional Vitals: Temp Pulse Resp BP Pulse Ox 97.9 F 73 16 125/61 97 09/22/17 09:05 09/22/17 09:05 09/22/17 09:05 09/22/17 09:05 09/22/17 09:05 General appearance: Present: A&O X 1 (somnolent). Absent: answers questions appropriately - Respiratory Respiratory exam: Present: CTAB (anterolaterally). Absent: accessory muscle use , rales, rhonchi, wheezes - Cardiovascular Cardiovascular exam: Present: irregular rhythm, +S1, +S2. Absent: diastolic murmur, gallop, rubs, systolic murmur - GI/Abdominal GI/Abdominal exam: Present: normal bowel sounds, soft, no peritoneal signs. Absent: distended, tenderness - Extremities Exam Extremities exam: Present: warm, radial pulses palpable and symmetrical. Absent : calf tenderness, cyanotic, pedal edema - Neurological Exam Neurological exam: Present: CN II-XII intact, no focal deficits. Absent: pronater drift, facial droop, speech deficit Internal Medicine: Result - Labs CBC & Chem 7: 09/22/17 05:13 09/22/17 05:13 Labs: Short CBC 09/22/17 Range/Units 05:13 WBC 9.9 (4.3-11.1) K/mcL Hgb 12.1 L (12.9-16.9) g/dL Hct 36.9 L (37.5-50.1) % Plt Count 257 (140-400) K/mcL Neutrophils # 6.8 (1.6-8.9) K/mcL BMP 09/22/17 05:13 Sodium 143 Potassium 3.8 Chloride 110 H Carbon Dioxide 23 BUN 23 Creatinine 0.94 Glucose 109 H Calcium 9.1 - ABG Interpretation ABG results: PT/INR, D-dimer PT 15.2 Seconds (9.4-12.1) H 09/17/17 22:18 Consult Discharge Plan - Plan Referrals: Miguel Ayala MD [Primary Care Provider] -
[2017-09-22] MEDS: Acetaminophen 325 MG TABLET PO PRN (20:23)
[2017-09-23] MEDS: Acetaminophen 325 MG TABLET PO PRN (04:23)
[2017-09-23] MEDS: Ampicillin 2 GM in 0.9 % Sodium Chloride Mini Bag 100 ML IVPB SCH ×5 (04:23→21:25)
[2017-09-23 05:41] LABS: BUN/Creatinine Ratio 18 (6-26); Blood Urea Nitrogen 17 mg/dL (8-23); Calcium 9.2 mg/dL (8.6-10.3); Carbon Dioxide 25 mEq/L (23-29); Chloride 106 mEq/L (98-107); Glucose 116 mg/dL (70-105); Osmolality,Calculated 293 (280-300); Potassium 3.7 mEq/L (3.5-5.1); Sodium 140 mEq/L (136-145); eGFR For African Americans > 60 (> 60); eGFR For Non-African Americans > 60 (> 60)
--- NOTE | 2017-09-23 08:19 | Electrocardiograph Report ---
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
--- NOTE | 2017-09-23 09:24 | Infectious Disease Progress No ---
Date of Encounter: 09/23/17 Time of Encounter: 09:21 - Assessment and Plan (1) Sepsis Current Visit: Yes Status: Acute Patient had 2 SIRS criteria with fever and tachycardia Resolved at this time Source is bacteremia No evidence of end organ damage Blood cultures positive for Enterococcus faecalis Urine culture positive for Veronica glabrata Continue ampicillin 2 g every 4 hours and rocephin 2g q12h Qualifiers: Sepsis type: sepsis due to unspecified organism Qualified Code(s): A41.9 - Sepsis, unspecified organism (2) Bacteremia Current Visit: Yes Status: Acute Causative organism enterococcus faecalis Sources this time is unclear but 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 Blood cultures drawn on September 17 2 sets are positive Repeat blood cultures drawn September 22 are pending Patient recently discontinued a course of 6 weeks antibiotics for bacteremia with ampicillin Continue ampicillin 2 g every 4 hours and Rocephin 2 g every 12 hours Patient has 2 minor modified Nur criteria Plan for TTE today, if negative patient will require LUIGI Patient does have artificial knee joints however there is no sign of septic arthritis CT Abd/pelvis was negative for any source of infection Continue to monitor renal function and dose adjust antibiotics based on creatinine clearance Creatinine clearance 62 (3) UTI (urinary tract infection) Current Visit: No Status: Acute Urine culture positive for Veronica glabrata. Likely contaminate Patient asymptomatic Will hold off on treating at this time Qualifiers: Urinary tract infection type: site unspecified Hematuria presence: with hematuria Qualified Code(s): N39.0 - Urinary tract infection, site not specified; R31.9 - Hematuria, unspecified; R31.9 - Hematuria, unspecified (4) Altered mental status Current Visit: Yes Status: Resolved Likely delirium in the setting of hospitalization and infection Improved Further management per primary Qualifiers: Altered mental status type: disorientation Qualified Code(s): R41.0 - Disorientation, unspecified (5) Pacemaker Current Visit: No Status: Acute Patient has a pacemaker present with recurrent bacteremia. Repeat blood culture pending Plan for TTE today, if negative will require LUIGI (6) History of knee replacement Current Visit: Yes Status: Acute Qualifiers: Laterality: bilateral Qualified Code(s): Z96.653 - Presence of artificial knee joint, bilateral (7) Atrial fibrillation with RVR Current Visit: No Status: Acute (8) Status post transcatheter aortic valve replacement Current Visit: No Status: Acute - Subjective Interval history: Patient seen and examined at bedside. Patient states he feels okay this morning. He was mildly confused overnight but no episodes of agitation. He denies fever, chills, chest pain, shortness of breath, cough, joint pain or swelling Infect Dis PN-Objective Data - Labs CBC & Chem 7: 09/22/17 05:13 09/23/17 04:59 Labs: Laboratory Results - last 24 hr 09/23/17 04:59 Sodium 140 Potassium 3.7 Chloride 106 Carbon Dioxide 25 BUN 17 Creatinine 0.93 Est GFR ( Amer) > 60 Est GFR (Non-Af Amer) > 60 BUN/Creatinine Ratio 18 Glucose 116 H Calculated Osmolality 293 Calcium 9.2 - Impressions Impressions Abdomen/Pelvis CT 09/22/17 20:20 IMPRESSION: Trace bilateral pleural effusions with minimal dependent lower lobe airspace disease, likely atelectasis. Pneumonia cannot be completely excluded, particularly within the left lower lobe. Small hiatal hernia. Distention of the urinary bladder. Distal colonic diverticulosis without radiographic evidence of active inflammation. D/ / Pratima Tucker Cha, MD / Pratima Tucker Cha, MD Interpreting Provider: Pratima Tucker Cha, MD Exam - Constitutional Vitals: Temp Pulse Resp BP Pulse Ox 98.3 F 65 18 134/94 97 09/23/17 08:21 09/23/17 08:21 09/23/17 08:21 09/23/17 08:21 09/23/17 08:21 General appearance: cooperative, no acute distress - Respiratory Respiratory exam: Present: CTAB. Absent: rales, rhonchi, wheezes - Cardiovascular Cardiovascular exam: Present: irregular rhythm. Absent: diastolic murmur, systolic murmur - GI/Abdominal GI/Abdominal exam: Present: soft. Absent: distended, tenderness - Extremities Exam Additional comments: No joint erythema, swelling - Neurological Exam Neurological exam: Present: alert, no focal deficits. Absent: oriented X3 Consult Discharge Plan - Plan Referrals: Miguel Ayala MD [Primary Care Provider] - - Attending Attestation I examined this patient and my medical decision-making was reviewed with the Resident Physician. I agree with the documented findings, disposition and treatment plan as described except to the extent set forth below.
[2017-09-23] MEDS: Lactobacillus 1 EACH CAP.SPRINK PO SCH ×2 (09:50→21:25)
[2017-09-23] MEDS: Diltiazem CD (24hr) 180 MG CAPSULE PO SCH (09:50)
[2017-09-23] MEDS: Apixaban 5 MG TABLET PO SCH ×2 (09:50→21:25)
[2017-09-23] MEDS: Aspirin Enteric Coated 81 MG Tablet PO SCH (09:50)
[2017-09-23] MEDS ORDERED: Ampicillin 2 GM VIAL ONE (12:10)
[2017-09-23] MEDS: cefTRIAXone 2,000 MG in Water for inj. (sterile) 20 ML 20 ML IVP SCH (12:16)
--- NOTE | 2017-09-23 16:19 | Internal Med Progress Note ---
Date of Encounter: 09/23/17 Time of Encounter: 14:45 - Assessment and plan (1) Bacteremia Current Visit: Yes Status: Acute Assessment and plan: Patient was noted to have enterococcus bacteremia in July 2017 with multiple positive blood cultures, was discharged home on IV ampicillin and completed a 4 week course, recently completed. Admitted again for altered mental status and fever. 2 out of 2 blood cultures from September 17 grows Enterococcus faecalis, sensitive to ampicillin. Repeat blood cultures from September 22 are pending. Continue IV ampicillin, IV Rocephin has been added by infectious diseases today. Appreciate recommendations. CT abdomen/ pelvis showed no acute infectious process. Transthoracic echocardiogram shows preserved EF, indeterminate diastolic function, normal bioprosthetic aortic valve, no evidence for endocarditis. Patient will need LUIGI. Urine culture grows Veronica, which is probably clinically not significant, not treating at this time. (2) DVT prophylaxis Current Visit: Yes Status: Acute (3) A-fib Current Visit: Yes Status: Chronic Assessment and plan: Currently rate controlled. Has permanent pacemaker in place. 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 Improving slowly. Has not required any doses of Haldol or Ativan in the last 24 hours. Continue supportive care and when necessary Haldol. No further episodes of psychosis since last night. (5) S/P aortic valve replacement Current Visit: Yes Status: Chronic - Time Spent With Patient Total time spent is greater than 50% in coordination of care (as documented) at patient's floor/unit and/or counseling patient: - Subjective Interval history: Noted to be awake today, however somewhat confused. Able to tell me his name and where he is at, but does not know the reason for admission. Denies chest pain, shortness of breath, cough, fever, chills. - Constitutional Vitals: Temp Pulse Resp BP Pulse Ox 97.7 F 75 16 128/72 97 09/23/17 16:07 09/23/17 16:07 09/23/17 16:07 09/23/17 16:07 09/23/17 16:07 General appearance: Present: A&O X 2. Absent: answers questions appropriately - Respiratory Respiratory exam: Present: CTAB. Absent: accessory muscle use, rales, rhonchi, wheezes - Cardiovascular Cardiovascular exam: Present: RRR, +S1, +S2. Absent: diastolic murmur, gallop, rubs, systolic murmur - GI/Abdominal GI/Abdominal exam: Present: normal bowel sounds, soft, no peritoneal signs. Absent: distended, tenderness - Extremities Exam Extremities exam: Present: full ROM, warm, radial pulses palpable and symmetrical. Absent: calf tenderness, cyanotic, pedal edema Additional comments: Bilateral knee surgical scars from total knee replacements, no erythema or knee joint tenderness - Neurological Exam Neurological exam: Present: CN II-XII intact, oriented X3, no focal deficits. Absent: pronater drift, facial droop, speech deficit Internal Medicine: Result - Labs CBC & Chem 7: 09/22/17 05:13 09/23/17 04:59 Labs: BMP 09/23/17 04:59 Sodium 140 Potassium 3.7 Chloride 106 Carbon Dioxide 25 BUN 17 Creatinine 0.93 Glucose 116 H Calcium 9.2 - ABG Interpretation ABG results: PT/INR, D-dimer PT 15.2 Seconds (9.4-12.1) H 09/17/17 22:18 - Impressions Impressions Abdomen/Pelvis CT 09/22/17 20:20 IMPRESSION: Trace bilateral pleural effusions with minimal dependent lower lobe airspace disease, likely atelectasis. Pneumonia cannot be completely excluded, particularly within the left lower lobe. Small hiatal hernia. Distention of the urinary bladder. Distal colonic diverticulosis without radiographic evidence of active inflammation. D/ / Pratima Tucker Cha, MD / Pratima Tucker Cha, MD Interpreting Provider: Pratima Tucker Cha, MD Echocardiogram 09/23/17 16:48 Impressions: LVEF 65%. Indeterminate diastolic function. Normal right ventricular structure and function. Bioprosthetic aortic valve demonstrates normal function by Doppler. Mild tricuspid regurgitation. No pulmonary hypertension. Evidence for endocarditis not visualized on this study. Left Ventricular Wall Motion: Rest Echo Findings All wall segments showed normal motion. Findings: Study Quality * Technically challenging due to clinical status - patient unable to position well for exam. ECG Findings * Atrial fibrillation. Left Ventricle * LVEF 65%. * Normal LV chamber size. Wall thickness measurements not well obtained. * Indeterminate diastolic function. Right Ventricle * Normal right ventricular structure and function. Left Atrium * Moderate-severely dilated left atrium. Right Atrium * Mildly dilated right atrium. Aortic Valve * Bioprosthetic aortic valve not well visualized. * No aortic regurgitation. * No aortic stenosis. Mitral Valve * No mitral stenosis. * Mildly thickened mitral valve leaflets. * Mild mitral annular calcification * Trace mitral regurgitation. Tricuspid Valve * Tricuspid valve not well visualized. * Mild tricuspid regurgitation. * Estimated RA pressure is 3 mmHg. * Estimated RVSP is 26 mmHg. * No pulmonary hypertension. Pulmonic Valve * Pulmonic valve is not well visualized. * No pulmonic stenosis. * No pulmonic regurgitation. Pulmonary Artery * Pulmonary artery not well visualized. Aorta * Not well visualized. Pericardium * There is no pericardial effusion present. Interatrial Septum * No evidence of PFO by color Doppler. IVC * Normal IVC dimensions and inspiratory collapse. Consult Discharge Plan - Plan Referrals: Miguel Ayala MD [Primary Care Provider] -
[2017-09-24] MEDS: Ampicillin 2 GM in 0.9 % Sodium Chloride Mini Bag 100 ML IVPB SCH ×6 (00:03→20:05)
[2017-09-24] MEDS: cefTRIAXone 2,000 MG in Water for inj. (sterile) 20 ML 20 ML IVP SCH ×2 (00:04→12:17)
[2017-09-24] MEDS ORDERED: 0.9 % Sodium Chloride 500 ML IVC ONE (09:07)
[2017-09-24] MEDS ORDERED: *HR* FentaNYL (PF) 100 MCG/2 ML VIAL IVP PRN (09:07)
[2017-09-24] MEDS ORDERED: Tetracaine/Benzocaine/Butamben 200MG/SPRAY (100SPY/BOT) MM ONE (09:07)
[2017-09-24] MEDS ORDERED: *HR* Midazolam HCl 5 MG/5 ML VIAL IVP PRN (09:07)
--- NOTE | 2017-09-24 10:29 | Infectious Disease Progress No ---
Date of Encounter: 09/24/17 Time of Encounter: 10:27 - Assessment and Plan (1) Sepsis Current Visit: Yes Status: Acute Patient had 2 SIRS criteria with fever and tachycardia Resolved at this time Source is bacteremia No evidence of end organ damage Blood cultures positive for Enterococcus faecalis Repeat blood cultures are preliminarily no growth Urine culture positive for Veronica glabrata Continue ampicillin 2 g every 4 hours and rocephin 2g q12h Qualifiers: Sepsis type: sepsis due to unspecified organism Qualified Code(s): A41.9 - Sepsis, unspecified organism (2) Bacteremia Current Visit: Yes Status: Acute Causative organism enterococcus faecalis Sources this time is unclear but 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 Blood cultures drawn on September 17 2 sets are positive Repeat blood cultures drawn September 22 are NGTD Patient recently discontinued a course of 6 weeks antibiotics for bacteremia with ampicillin Continue ampicillin 2 g every 4 hours and Rocephin 2 g every 12 hours Patient has 2 minor modified Nur criteria TTE nondiagnostic for endocarditis, LUIGI today Patient does have artificial knee joints however there is no sign of septic arthritis CT Abd/pelvis was negative for any source of infection Continue to monitor renal function and dose adjust antibiotics based on creatinine clearance Creatinine clearance 62 (3) UTI (urinary tract infection) Current Visit: No Status: Acute Urine culture positive for Veronica glabrata. Likely contaminate Patient asymptomatic Will hold off on treating at this time Qualifiers: Urinary tract infection type: site unspecified Hematuria presence: with hematuria Qualified Code(s): N39.0 - Urinary tract infection, site not specified; R31.9 - Hematuria, unspecified; R31.9 - Hematuria, unspecified (4) Altered mental status Current Visit: Yes Status: Resolved Likely delirium in the setting of hospitalization and infection Improved Further management per primary Qualifiers: Altered mental status type: disorientation Qualified Code(s): R41.0 - Disorientation, unspecified (5) Pacemaker Current Visit: No Status: Acute Patient has a pacemaker present with recurrent bacteremia. Repeat blood culture pending TTE nondiagnostic, LUIGI today (6) History of knee replacement Current Visit: Yes Status: Acute Qualifiers: Laterality: bilateral Qualified Code(s): Z96.653 - Presence of artificial knee joint, bilateral (7) Atrial fibrillation with RVR Current Visit: No Status: Acute (8) Status post transcatheter aortic valve replacement Current Visit: No Status: Acute - Subjective Interval history: Patient seen and examined at bedside. Patient states he feels pretty good this morning. He was mildly confused overnight but minimal agitation. He denies fever, chills, chest pain, shortness of breath, cough, joint pain or swelling Infect Dis PN-Objective Data - Labs CBC & Chem 7: 09/24/17 11:19 09/23/17 04:59 Cultures: Cultures 09/22/17 08:33 Blood Culture - Preliminary Peripheral Venipuncture No growth. 09/22/17 08:29 Blood Culture - Preliminary Peripheral Venipuncture No growth. - Impressions Impressions Echocardiogram 09/23/17 16:48 Impressions: LVEF 65%. Indeterminate diastolic function. Normal right ventricular structure and function. Bioprosthetic aortic valve demonstrates normal function by Doppler. Mild tricuspid regurgitation. No pulmonary hypertension. Evidence for endocarditis not visualized on this study. Left Ventricular Wall Motion: Rest Echo Findings All wall segments showed normal motion. Findings: Study Quality * Technically challenging due to clinical status - patient unable to position well for exam. ECG Findings * Atrial fibrillation. Left Ventricle * LVEF 65%. * Normal LV chamber size. Wall thickness measurements not well obtained. * Indeterminate diastolic function. Right Ventricle * Normal right ventricular structure and function. Left Atrium * Moderate-severely dilated left atrium. Right Atrium * Mildly dilated right atrium. Aortic Valve * Bioprosthetic aortic valve not well visualized. * No aortic regurgitation. * No aortic stenosis. Mitral Valve * No mitral stenosis. * Mildly thickened mitral valve leaflets. * Mild mitral annular calcification * Trace mitral regurgitation. Tricuspid Valve * Tricuspid valve not well visualized. * Mild tricuspid regurgitation. * Estimated RA pressure is 3 mmHg. * Estimated RVSP is 26 mmHg. * No pulmonary hypertension. Pulmonic Valve * Pulmonic valve is not well visualized. * No pulmonic stenosis. * No pulmonic regurgitation. Pulmonary Artery * Pulmonary artery not well visualized. Aorta * Not well visualized. Pericardium * There is no pericardial effusion present. Interatrial Septum * No evidence of PFO by color Doppler. IVC * Normal IVC dimensions and inspiratory collapse. Exam - Constitutional Vitals: Temp Pulse Resp BP Pulse Ox 97.7 F 74 14 138/84 96 09/24/17 09:23 09/24/17 09:23 09/24/17 09:23 09/24/17 09:23 09/24/17 09:23 Consult Discharge Plan - Plan Referrals: Miguel Ayala MD [Primary Care Provider] - - Attending Attestation I examined this patient and my medical decision-making was reviewed with the Resident Physician. I agree with the documented findings, disposition and treatment plan as described except to the extent set forth below. Patient seems to be doing great clinically. I walked in he said hi Dr. Brewer and he was joking and he was alert and oriented. No acute distress. His numbers look great. I had a very long discussion with his son surgeon over the phone and explained to him that even though the LUIGI is negative and the CT abdomen and pelvis is negative I am concerned for endocarditis. He after long discussion and given the option of treat this as a bacteremia with no endocarditis with just ampicillin for probably 4 weeks versus treated as prostatic valve endocarditis and add gentamicin versus even transferring the patient to [facility]. The That We Need to Go the Conservative Route under the Circumstances. He Knew That There Is Very High Risk with Gentamicin and Acute Kidney Injury. He States May Be the Best Thing to Do Is Treat Him with IV Ampicillin for 2-4 Weeks and May Put Him on Suppressive Therapy after That Indefinitely. I Do Not Think This on Unreasonable Approach. I Will DC the Rocephin and Discharged the Patient on Ampicillin for 4 Week Period.
[2017-09-24 11:45] LABS: Basophils # 0.1 K/mcL (0.0-0.2); Basophils % 0.5 %; Eosinophils # 0.2 K/mcL (0.0-0.6); Eosinophils % 2.3 %; Hematocrit 38.8 % (37.5-50.1); Hemoglobin 12.5 g/dL (12.9-16.9); Immature Granulocytes % 0.3 % (0-4); Lymphocytes # 1.9 K/mcL (0.6-4.6); Lymphocytes % 19.8 %; Mean Corpuscular HGB Conc 32.2 g/dL (31.6-35.5); Mean Corpuscular Hemoglobin 28.7 pg (28.0-33.3); Mean Corpuscular Volume 89.2 fL (83.0-100.0); Mean Platelet Volume 10.2 fL (9.4-12.4); Monocytes # 0.7 K/mcL (0.0-1.3); Monocytes % 7.6 %; Neutrophils # 6.6 K/mcL (1.6-8.9); Platelet Count 262 K/mcL (140-400); Red Blood Count 4.35 M/mcL (4.19-5.50); Red Cell Distribution Width 15.4 % (11.5-14.5); Segmented Neutrophils % 69.5 %
[2017-09-24] MEDS: Lactobacillus 1 EACH CAP.SPRINK PO SCH ×2 (12:16→20:05)
[2017-09-24] MEDS: Diltiazem CD (24hr) 180 MG CAPSULE PO SCH (12:16)
[2017-09-24] MEDS: Apixaban 5 MG TABLET PO SCH ×2 (12:16→20:05)
[2017-09-24] MEDS: Aspirin Enteric Coated 81 MG Tablet PO SCH (12:16)
--- NOTE | 2017-09-24 15:44 | Internal Med Progress Note ---
Date of Encounter: 09/24/17 Time of Encounter: 11:30 - Assessment and plan (1) Bacteremia Current Visit: Yes Status: Acute Assessment and plan: Patient was noted to have enterococcus bacteremia in July 2017 with multiple positive blood cultures, was discharged home on IV ampicillin and completed a 4 week course, recently completed. Admitted again for altered mental status and fever. 2 out of 2 blood cultures from September 17 grows Enterococcus faecalis, sensitive to ampicillin. Repeat blood cultures from September 22 are negative thus far. Continue IV ampicillin and IV Rocephin; Appreciate ID recommendations. Transthoracic echocardiogram shows preserved EF, indeterminate diastolic function, normal bioprosthetic aortic valve, no evidence for endocarditis. Underwent LUIGI today- no e/o- vegetations. Urine culture grows Veronica, which is probably clinically not significant, not treating at this time. (2) DVT prophylaxis Current Visit: Yes Status: Acute (3) A-fib Current Visit: Yes Status: Chronic Assessment and plan: Currently rate controlled. Has permanent pacemaker in place. Continue Eliquis for nursing home anticoagulation; Qualifiers: Atrial fibrillation type: chronic Qualified Code(s): I48.2 - Chronic atrial fibrillation (4) Acute encephalopathy Current Visit: Yes Status: Acute Assessment and plan: likely due to sundowning/hospitalization/underlying infection over underlying dementia; has been on one-on-one watch for safety. Improving slowly. Has not required any doses of Haldol or Ativan in the last 24 hours. Continue supportive care and when necessary Haldol. is concerned about the effects of Ampicillin on mental status, will d/w ID; (5) S/P aortic valve replacement Current Visit: Yes Status: Chronic - Time Spent With Patient Total time spent is greater than 50% in coordination of care (as documented) at patient's floor/unit and/or counseling patient: - Subjective Interval history: More awake today. Denies fever/chills, chest pain, shortness of breath, palpitations, dizziness. Does have some confusion and agitation towards evening and night. Underwent LUIGI today. - Constitutional Vitals: Temp Pulse Resp BP Pulse Ox 97.4 F L 74 16 132/72 98 09/24/17 15:14 09/24/17 15:14 09/24/17 15:14 09/24/17 15:14 09/24/17 15:14 General appearance: Present: A&O X 2. Absent: answers questions appropriately - Respiratory Respiratory exam: Present: CTAB. Absent: accessory muscle use, rales, rhonchi, wheezes - Cardiovascular Cardiovascular exam: Present: RRR, +S1, +S2. Absent: diastolic murmur, gallop, rubs, systolic murmur - GI/Abdominal GI/Abdominal exam: Present: normal bowel sounds, soft, no peritoneal signs. Absent: distended, tenderness - Extremities Exam Extremities exam: Present: full ROM, warm, radial pulses palpable and symmetrical. Absent: calf tenderness, cyanotic, pedal edema Internal Medicine: Result - Labs CBC & Chem 7: 09/24/17 11:19 09/23/17 04:59 Labs: Short CBC 09/24/17 Range/Units 11:19 WBC 9.5 (4.3-11.1) K/mcL Hgb 12.5 L (12.9-16.9) g/dL Hct 38.8 (37.5-50.1) % Plt Count 262 (140-400) K/mcL Neutrophils # 6.6 (1.6-8.9) K/mcL - ABG Interpretation ABG results: PT/INR, D-dimer PT 15.2 Seconds (9.4-12.1) H 09/17/17 22:18 Consult Discharge Plan - Plan Referrals: Miguel Ayala MD [Primary Care Provider] -
[2017-09-25] MEDS: cefTRIAXone 2,000 MG in Water for inj. (sterile) 20 ML 20 ML IVP SCH (00:12)
[2017-09-25] MEDS: Ampicillin 2 GM in 0.9 % Sodium Chloride Mini Bag 100 ML IVPB SCH ×6 (00:16→22:30)
[2017-09-25] MEDS: Diltiazem CD (24hr) 180 MG CAPSULE PO SCH (09:12)
[2017-09-25] MEDS: Lactobacillus 1 EACH CAP.SPRINK PO SCH ×2 (09:12→22:35)
[2017-09-25] MEDS: Apixaban 5 MG TABLET PO SCH ×2 (09:12→22:35)
[2017-09-25] MEDS: Aspirin Enteric Coated 81 MG Tablet PO SCH (09:12)
--- NOTE | 2017-09-25 10:14 | Infectious Disease Progress No ---
Date of Encounter: 09/25/17 Time of Encounter: 10:12 - Assessment and Plan (1) Sepsis Current Visit: Yes Status: Acute Patient had 2 SIRS criteria with fever and tachycardia Resolved at this time Source is bacteremia No evidence of end organ damage Blood cultures positive for Enterococcus faecalis Repeat blood cultures are preliminarily no growth Urine culture positive for Veronica glabrata Continue ampicillin 2 g every 4 hours, transition to ampicillin 12g IV continuous daily at d/c Discontinue Rocephin Qualifiers: Sepsis type: sepsis due to unspecified organism Qualified Code(s): A41.9 - Sepsis, unspecified organism (2) Bacteremia Current Visit: Yes Status: Acute Causative organism enterococcus faecalis Sources this time is unclear but 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 Even though the patient's LUIGI was negative there is still concern for endocarditis given patient's quick recurrence of infection once antibiotics were discontinued Blood cultures drawn on September 17 2 sets are positive Repeat blood cultures drawn September 22 are NGTD Patient recently discontinued a course of 6 weeks antibiotics for bacteremia with ampicillin Continue ampicillin 2 g every 4 hours We will plan to transitione to ampicillin 12 g via continuous infusion every 24 hours at discharge Discontinue Rocephin 2 g every 12 hours Patient has 2 minor modified Nur criteria TTE nondiagnostic for endocarditis, LUIGI showed no evidence of endocarditis Patient does have artificial knee joints however there is no sign of septic arthritis CT Abd/pelvis was negative for any source of infection Continue to monitor renal function and dose adjust antibiotics based on creatinine clearance Creatinine clearance 62 Patient will require weekly CBC, BUN/creatinine Follow-up with infectious disease as outpatient in 2 weeks (3) UTI (urinary tract infection) Current Visit: No Status: Acute Urine culture positive for Veronica glabrata. Likely contaminate Patient asymptomatic Will hold off on treating at this time Qualifiers: Urinary tract infection type: site unspecified Hematuria presence: with hematuria Qualified Code(s): N39.0 - Urinary tract infection, site not specified; R31.9 - Hematuria, unspecified; R31.9 - Hematuria, unspecified (4) Altered mental status Current Visit: Yes Status: Resolved Likely delirium in the setting of hospitalization and infection Continues to improve Further management per primary Qualifiers: Altered mental status type: disorientation Qualified Code(s): R41.0 - Disorientation, unspecified (5) Pacemaker Current Visit: No Status: Acute Patient has a pacemaker present with recurrent bacteremia. Repeat blood culture pending TTE nondiagnostic, LUIGI showed no evidence of vegetation however suspicion remains for infective endocarditis (6) History of knee replacement Current Visit: Yes Status: Acute Qualifiers: Laterality: bilateral Qualified Code(s): Z96.653 - Presence of artificial knee joint, bilateral (7) Atrial fibrillation with RVR Current Visit: No Status: Acute (8) Status post transcatheter aortic valve replacement Current Visit: No Status: Acute - Subjective Interval history: Patient seen and examined at bedside. Patient states he feels pretty good this morning. He no acute events overnight. This morning he was laughing and joking and seemed to be in good spirits. He denies fever, chills, chest pain, shortness of breath, cough, joint pain or swelling Infect Dis PN-Objective Data - Labs CBC & Chem 7: 09/24/17 11:19 09/23/17 04:59 Labs: Laboratory Results - last 24 hr 09/24/17 11:19 WBC 9.5 RBC 4.35 Hgb 12.5 L Hct 38.8 MCV 89.2 MCH 28.7 MCHC 32.2 RDW 15.4 H Plt Count 262 MPV 10.2 Immature Gran % 0.3 Seg Neutrophils % 69.5 Lymphocytes % 19.8 Monocytes % 7.6 Eosinophils % 2.3 Basophils % 0.5 Neutrophils # 6.6 Lymphocytes # 1.9 Monocytes # 0.7 Eosinophils # 0.2 Basophils # 0.1 Cultures: Cultures 09/22/17 08:33 Blood Culture - Preliminary Peripheral Venipuncture No growth. 09/22/17 08:29 Blood Culture - Preliminary Peripheral Venipuncture No growth. Exam - Constitutional Vitals: Temp Pulse Resp BP Pulse Ox 98.0 F 81 16 152/85 94 09/25/17 08:43 09/25/17 08:43 09/25/17 08:43 09/25/17 08:43 09/25/17 08:43 - Respiratory Respiratory exam: Present: CTAB. Absent: rales, rhonchi, wheezes - Cardiovascular Cardiovascular exam: Present: RRR. Absent: diastolic murmur, systolic murmur - GI/Abdominal GI/Abdominal exam: Present: normal bowel sounds, soft. Absent: tenderness - Extremities Exam Extremities exam: Present: normal inspection Additional comments: Bilateral knees are without erythema, swelling, effusion - Neurological Exam Neurological exam: Present: alert, oriented X3, no focal deficits - Psychiatric Psychiatric exam: Present: normal affect, normal mood Consult Discharge Plan - Plan Referrals: Miguel Ayala MD [Primary Care Provider] - - Attending Attestation I examined this patient and my medical decision-making was reviewed with the Resident Physician. I agree with the documented findings, disposition and treatment plan as described except to the extent set forth below.
--- NOTE | 2017-09-25 16:16 | Internal Med Progress Note ---
Date of Encounter: 09/25/17 Time of Encounter: 13:20 - Assessment and plan (1) Bacteremia Current Visit: Yes Status: Acute Assessment and plan: Recurrent; 2 out of 2 blood cultures from September 17 grows Enterococcus faecalis, sensitive to ampicillin. Repeat blood cultures from September 22 are negative thus far. Continue IV ampicillin and d/c IV Rocephin; Appreciate ID recommendations. d/w patient's son- agreed on conservative management with IV Ampicillin; avoid Gentamicin due to risk of BENOIT and vestibular complications; Transthoracic echocardiogram shows preserved EF, indeterminate diastolic function, normal bioprosthetic aortic valve, no evidence for endocarditis. Underwent LUIGI today- no e/o- vegetations. Urine culture grows Veronica, which is probably clinically not significant, not treating at this time. Family requesting placement; f/up PT/OT evaluation; manager social services on board; medically stable; (2) DVT prophylaxis Current Visit: Yes Status: Acute (3) A-fib Current Visit: Yes Status: Chronic Assessment and plan: Currently rate controlled. Has permanent pacemaker in place. Continue Eliquis for longterm anticoagulation; Qualifiers: Atrial fibrillation type: chronic Qualified Code(s): I48.2 - Chronic atrial fibrillation (4) Acute encephalopathy Current Visit: Yes Status: Resolved (5) S/P aortic valve replacement Current Visit: Yes Status: Chronic - Time Spent With Patient Total time spent is greater than 50% in coordination of care (as documented) at patient's floor/unit and/or counseling patient: - Subjective Interval history: Denies new complaints; reports feeling well; no fever/chills, nausea, vomiting, abdominal pain, chest pain; - Constitutional Vitals: Temp Pulse Resp BP Pulse Ox 97.5 F L 79 16 156/77 97 09/25/17 15:32 09/25/17 15:32 09/25/17 15:32 09/25/17 15:32 09/25/17 15:32 General appearance: Present: A&O X 2, answers questions appropriately - Cardiovascular Cardiovascular exam: Present: RRR, +S1, +S2. Absent: diastolic murmur, gallop, rubs, systolic murmur Internal Medicine: Result - Labs CBC & Chem 7: 09/24/17 11:19 09/23/17 04:59 - ABG Interpretation ABG results: PT/INR, D-dimer PT 15.2 Seconds (9.4-12.1) H 09/17/17 22:18 Consult Discharge Plan - Plan Referrals: Miguel Ayala MD [Primary Care Provider] -
[2017-09-26] MEDS: Ampicillin 2 GM in 0.9 % Sodium Chloride Mini Bag 100 ML IVPB SCH ×6 (01:52→22:36)
[2017-09-26] MEDS: Aspirin Enteric Coated 81 MG Tablet PO SCH (10:42)
[2017-09-26] MEDS: Lactobacillus 1 EACH CAP.SPRINK PO SCH ×2 (10:42→22:32)
[2017-09-26] MEDS: Diltiazem CD (24hr) 180 MG CAPSULE PO SCH (10:42)
[2017-09-26] MEDS: Apixaban 5 MG TABLET PO SCH ×2 (10:42→22:35)
--- NOTE | 2017-09-26 17:09 | Internal Med Progress Note ---
Date of Encounter: 09/26/17 Time of Encounter: 13:45 - Assessment and plan (1) Bacteremia Current Visit: Yes Status: Acute Assessment and plan: Recurrent; 2 out of 2 blood cultures from September 17 grows Enterococcus faecalis, sensitive to ampicillin. Repeat blood cultures from September 22 are negative thus far. Continue IV ampicillin; Appreciate ID recommendations. Transthoracic echocardiogram shows preserved EF, indeterminate diastolic function, normal bioprosthetic aortic valve, no evidence for endocarditis. Underwent LUIGI today- no e/o- vegetations. Urine culture grows Veronica, which is probably clinically not significant, not treating at this time. PT/OT evaluation recommends ECF placement; social worker health services on board; medically stable; (2) DVT prophylaxis Current Visit: Yes Status: Acute (3) A-fib Current Visit: Yes Status: Chronic Assessment and plan: Currently rate controlled. Has permanent pacemaker in place. 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 Denies chest pain, shortness of breath, fever, chills. Tolerates oral diet. Awaiting rehabilitation placement. Plan of care discussed with patient's at bedside. - Constitutional Vitals: Temp Pulse Resp BP Pulse Ox 97.9 F 74 18 134/77 96 09/26/17 11:28 09/26/17 11:28 09/26/17 11:28 09/26/17 11:28 09/26/17 11:28 General appearance: Present: A&O X 2, answers questions appropriately - Respiratory Respiratory exam: Present: CTAB. Absent: accessory muscle use, rales, rhonchi, wheezes - Cardiovascular Cardiovascular exam: Present: RRR, +S1, +S2. Absent: diastolic murmur, gallop, rubs, systolic murmur Internal Medicine: Result - Labs CBC & Chem 7: 09/24/17 11:19 09/23/17 04:59 - ABG Interpretation ABG results: PT/INR, D-dimer PT 15.2 Seconds (9.4-12.1) H 09/17/17 22:18 - VTE Documentation of Mechanical Device: Intermittent pneumatic compression device Consult Discharge Plan - Plan Referrals: Migeul Ayala MD [Primary Care Provider] -
[2017-09-27] MEDS: Ampicillin 2 GM in 0.9 % Sodium Chloride Mini Bag 100 ML IVPB SCH ×6 (02:47→21:18)
[2017-09-27] MEDS: Aspirin Enteric Coated 81 MG Tablet PO SCH (10:15)
[2017-09-27] MEDS: Apixaban 5 MG TABLET PO SCH ×2 (10:15→21:20)
[2017-09-27] MEDS: Lactobacillus 1 EACH CAP.SPRINK PO SCH ×2 (10:15→21:20)
[2017-09-27] MEDS: Diltiazem CD (24hr) 180 MG CAPSULE PO SCH (10:15)
--- NOTE | 2017-09-27 15:53 | Internal Med Progress Note ---
Date of Encounter: 09/27/17 Time of Encounter: 12:45 - Assessment and plan (1) Bacteremia Current Visit: Yes Status: Acute Assessment and plan: Recurrent; 2 out of 2 blood cultures from September 17 grows Enterococcus faecalis, sensitive to ampicillin. Repeat blood cultures from September 22 are negative. Continue IV ampicillin; Appreciate ID recommendations. Transthoracic echocardiogram shows preserved EF, indeterminate diastolic function, normal bioprosthetic aortic valve, no evidence for endocarditis. Underwent LUIGI today- no e/o- vegetations. Urine culture grows Veronica, which is probably clinically not significant, not treating at this time. PT/OT evaluation recommends ECF placement; social services designee on board; medically stable; (2) DVT prophylaxis Current Visit: Yes Status: Acute (3) A-fib Current Visit: Yes Status: Chronic Assessment and plan: Currently rate controlled. Has permanent pacemaker in place. Continue Eliquis for halfway anticoagulation; Qualifiers: Atrial fibrillation type: chronic Qualified Code(s): I48.2 - Chronic atrial fibrillation (4) Acute encephalopathy Current Visit: Yes Status: Resolved (5) S/P aortic valve replacement Current Visit: Yes Status: Chronic - Time Spent With Patient Total time spent is greater than 50% in coordination of care (as documented) at patient's floor/unit and/or counseling patient: - Subjective Interval history: Doing well. Denies chest pain, shortness of breath, fever, chills. Tolerates oral diet. Awaiting rehabilitation placement. Plan of care discussed with patient's at bedside. - Constitutional Vitals: Temp Pulse Resp BP Pulse Ox 97.6 F 78 14 145/83 97 09/27/17 15:30 09/27/17 15:30 09/27/17 15:30 09/27/17 15:30 09/27/17 15:30 General appearance: Present: A&O X 2, answers questions appropriately - Respiratory Respiratory exam: Present: CTAB. Absent: accessory muscle use, rales, rhonchi, wheezes - Cardiovascular Cardiovascular exam: Present: RRR, +S1, +S2. Absent: diastolic murmur, gallop, rubs, systolic murmur Internal Medicine: Result - Labs CBC & Chem 7: 09/24/17 11:19 09/23/17 04:59 - ABG Interpretation ABG results: PT/INR, D-dimer PT 15.2 Seconds (9.4-12.1) H 09/17/17 22:18 - VTE Documentation of Mechanical Device: Intermittent pneumatic compression device Consult Discharge Plan - Plan Referrals: Miguel Ayala MD [Primary Care Provider] -
[2017-09-28] MEDS: Ampicillin 2 GM in 0.9 % Sodium Chloride Mini Bag 100 ML IVPB SCH ×6 (02:47→22:53)
[2017-09-28] MEDS ORDERED: *HR* LORazepam 2 MG/ML VIAL IVP ONE (03:43)
[2017-09-28] MEDS: Lactobacillus 1 EACH CAP.SPRINK PO SCH ×2 (10:57→21:23)
[2017-09-28] MEDS: Diltiazem CD (24hr) 180 MG CAPSULE PO SCH (10:57)
[2017-09-28] MEDS: Aspirin Enteric Coated 81 MG Tablet PO SCH (10:57)
[2017-09-28] MEDS: Apixaban 5 MG TABLET PO SCH ×2 (10:57→21:23)
--- NOTE | 2017-09-28 11:27 | Infectious Disease Progress No ---
Date of Encounter: 09/28/17 Time of Encounter: 11:25 - Assessment and Plan (1) Sepsis Current Visit: No Status: Acute Patient had 2 SIRS criteria with fever and tachycardia Resolved at this time Source is bacteremia No evidence of end organ damage Blood cultures positive for Enterococcus faecalis Repeat blood cultures are no growth Urine culture positive for Veronica glabrata Continue ampicillin 2 g every 4 hours, transition to ampicillin 12g IV continuous daily at d/c for 4 weeks Discontinued Rocephin Qualifiers: Sepsis type: sepsis due to unspecified organism Qualified Code(s): A41.9 - Sepsis, unspecified organism (2) Bacteremia Current Visit: Yes Status: Acute Causative organism enterococcus faecalis Sources this time is unclear but 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 Even though the patient's LUIGI was negative there is still concern for endocarditis given patient's quick recurrence of infection once antibiotics were discontinued Blood cultures drawn on September 17 2 sets are positive Repeat blood cultures drawn September 22 are NGTD Patient recently discontinued a course of 6 weeks antibiotics for bacteremia with ampicillin Continue ampicillin 2 g every 4 hours Transition to ampicillin 12 g via continuous infusion every 24 hours at discharge Discontinue Rocephin 2 g every 12 hours Patient has 2 minor modified Nur criteria TTE nondiagnostic for endocarditis, LUIGI showed no evidence of endocarditis Patient does have artificial knee joints however there is no sign of septic arthritis CT Abd/pelvis was negative for any source of infection Continue to monitor renal function and dose adjust antibiotics based on creatinine clearance Creatinine clearance 62 Patient will require weekly CBC, BUN/creatinine Follow-up with infectious disease as outpatient in 2 weeks (3) UTI (urinary tract infection) Current Visit: No Status: Acute Urine culture positive for Veronica glabrata. Likely contaminate Patient asymptomatic Will hold off on treating at this time Qualifiers: Urinary tract infection type: site unspecified Hematuria presence: with hematuria Qualified Code(s): N39.0 - Urinary tract infection, site not specified; R31.9 - Hematuria, unspecified; R31.9 - Hematuria, unspecified (4) Altered mental status Current Visit: Yes Status: Resolved Likely delirium in the setting of hospitalization and infection Patient was agitated last night and received Haldol Further management per primary Qualifiers: Altered mental status type: disorientation Qualified Code(s): R41.0 - Disorientation, unspecified (5) Pacemaker Current Visit: No Status: Acute Patient has a pacemaker present with recurrent bacteremia. Repeat blood culture pending TTE nondiagnostic, LUIGI showed no evidence of vegetation however suspicion remains for infective endocarditis (6) Atrial fibrillation with RVR Current Visit: No Status: Acute (7) Status post transcatheter aortic valve replacement Current Visit: No Status: Acute (8) History of knee replacement Current Visit: Yes Status: Acute Qualifiers: Laterality: bilateral Qualified Code(s): Z96.653 - Presence of artificial knee joint, bilateral - Subjective Interval history: Pt seen and examined. His is at bedside and able to assist with history of patient is lethargic after being given Haldol for agitation overnight. She states he is about the same as the day before. Patient himself reports no pain, shortness of breath or any complaints. Infect Dis PN-Objective Data - Labs CBC & Chem 7: 09/24/17 11:19 09/23/17 04:59 Cultures: Cultures 09/22/17 08:33 Blood Culture - Final Peripheral Venipuncture No growth. 09/22/17 08:29 Blood Culture - Final Peripheral Venipuncture No growth. Exam - Constitutional Vitals: Temp Pulse Resp BP Pulse Ox 97.8 F 84 16 162/78 95 09/28/17 11:20 09/28/17 11:20 09/28/17 11:20 09/28/17 11:20 09/28/17 11:20 - Respiratory Respiratory exam: Present: decreased breath sounds. Absent: accessory muscle use - Cardiovascular Cardiovascular exam: Present: RRR - GI/Abdominal GI/Abdominal exam: Present: normal bowel sounds, soft. Absent: tenderness - Extremities Exam Extremities exam: Present: pedal edema (trace) - VTE Documentation of Mechanical Device: Intermittent pneumatic compression device Consult Discharge Plan - Plan Additional Instructions: F/up with PCP in 1-2 weeks F/up with ID in 2 weeks Referrals: Miguel Ayala MD [Primary Care Provider] - Prescriptions: risperiDONE [Risperidone] 0.5 mg PO HS 5 Days #5 tablet - Attending Attestation I examined this patient and my medical decision-making was reviewed with the Resident Physician. I agree with the documented findings, disposition and treatment plan as described except to the extent set forth below.
--- NOTE | 2017-09-28 15:19 | Discharge Summary ---
- NOTES TO OUTPATIENT PROVIDER Notes to Outpatient Provider: Recurrent Enterococcus bacteremia, on IV Ampicillin for 4 weeks, ID f/up Date of Encounter: 09/28/17 Time of Encounter: 11:45 - Discharge Diagnosis (1) Bacteremia Priority: Primary Status: Acute (2) A-fib Priority: Secondary Status: Chronic Qualifiers: Atrial fibrillation type: chronic Qualified Code(s): I48.2 - Chronic atrial fibrillation (3) Acute encephalopathy Priority: Primary Status: Acute (4) S/P aortic valve replacement Priority: Secondary Status: Chronic Hospital course: Mr. Fan is a 87 year old male with the above medical problems who was admitted with fevers and altered mental status. Patient recently completed a 4 week course of IV ampicillin due to enterococcus bacteremia diagnosed in July 2017. He was started on broad-spectrum IV antibiotics initially during this admission. 2 out of 2 peripheral blood cultures from September 17 grew ampicillin sensitive Enterococcus faecalis. Repeat blood cultures from September 22 are negative. Urine culture grew Veronica, which is probably not clinically significant and is not being treated. Infectious diseases has been on board, recommended 4 weeks of IV ampicillin after discussing with patient's family. Patient does have history of aortic valve replacement and pacemaker placement. Transthoracic and transesophageal echocardiograms were completed with no evidence of endocarditis. 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 However, given his age and fluctuating mental status, he is at high risk for acute kidney injury with gentamicin, therefore conservative management with IV ampicillin at this time has been decided. Physical and occupational therapy evaluation recommended ECF placement, is in agreement. Patient is noted to have sporadic episodes of acute delirium and agitation, controlled with Haldol, which makes him quite drowsy and somnolent. He is being started on low-dose Risperdal, which may be uptitrated as needed. Patient is otherwise medically stable for discharge. Discharge discussed with: patient, family, social work - Time Spent with Patient Total time spent providing and/or coordinating discharge services: Greater than 30 minutes (45 min) - Discharge Medications Prescriptions: risperiDONE [Risperidone] 0.5 mg PO HS 5 Days #5 tablet Home Medications: Aspirin [Lo-Dose Aspirin EC] 81 mg PO DAILY 08/02/17 [History] Calcium Carbonate [Calcium] 1,200 mg PO DAILY 08/02/17 [History] Cetirizine HCl 10 mg PO DAILY 08/02/17 [History] Finasteride [Proscar] 5 mg PO DAILY 08/02/17 [History] Lutein Extract/Zeaxanthin Ext [Lutein 15 mg Softgel] 1 cap PO DAILY 08/02/17 [ History] Simvastatin [Zocor] 10 mg PO DAILY 08/02/17 [History] Tamsulosin [Flomax] 0.4 mg PO DAILY 08/02/17 [History] Apixaban [Eliquis] 5 mg PO BID #60 tablet 08/10/17 [Rx] Diltiazem CD (24hr) [Cardizem CD] 180 mg PO DAILY #30 cap.er.24h 08/10/17 [Rx] Lactobacillus [Culturelle] 1 each PO BID #60 cap.sprink 08/10/17 [Rx] Ferrous Sulfate [Iron] 325 mg PO DAILY 09/18/17 [History] risperiDONE [Risperidone] 0.5 mg PO HS 5 Days #5 tablet 09/28/17 [Rx] Allergies/Adverse Reactions: 3 Allergy/AdvReac Type Severity Reaction Status Date / Time No Known Allergies Allergy Verified 08/01/17 23:21 Date of admission: 09/19/17 10:09 Primary care physician: Miguel Ayala MD Consults: 09/25/17 08:22 Consult to Invasive Line Access Team [CONS] Routine Reason for Consult: home atb Line Type: Midline 09/25/17 13:04 Consult to Physical Therapy [CONS] Stat Comment: Evaluate, develop and implement POC Reason for Consult: Patient going to ECF - needs PT/OT evals per ECF and for insurance auth. Does patient have active BEDREST order?: No Is patient medically & hemodynamically stable?: Yes Patient assessed for mobility or mobilized this visit?: No Discharging clinician: Ana Zelaya Anticipated date of discharge: 09/28/17 - Constitutional Vitals: Temp Pulse Resp BP Pulse Ox 97.8 F 84 16 162/78 95 09/28/17 11:20 09/28/17 11:20 09/28/17 11:20 09/28/17 11:20 09/28/17 11:20 General appearance: Present: A&O X 0 (somnolent), answers questions appropriately - Cardiovascular Cardiovascular exam: Present: irregular rhythm, +S1, +S2. Absent: diastolic murmur, gallop, rubs, systolic murmur - Patient Status Disposition: Transfer SNF Condition: Fair Functional capacity at discharge: uses cane/walker Overall status at discharge: patient is progressing back to baseline - Discharge Instructions Follow Up With: Miguel Ayala MD [Primary Care Provider] - Additional Instructions: F/up with PCP in 1-2 weeks F/up with ID in 2 weeks - Diet and Activity Activity: as per physical therapy Diet: low fat, low cholesterol, low salt diet - VTE Documentation of Mechanical Device: Intermittent pneumatic compression device
--- NOTE | 2017-09-28 15:26 | Physician Discharge Referral ---
ExtendedCare Referral Info Transfer To: [facility] Provider in Charge: Ana Zelaya Provider in Charge after Transfer: PCP Institutional Level of Care: Skilled - Diagnosis (1) Bacteremia Priority: Primary Status: Acute (2) A-fib Priority: Secondary Status: Chronic (3) Acute encephalopathy Priority: Primary Status: Acute (4) S/P aortic valve replacement Priority: Secondary Status: Chronic Expected Duration of Placement: 3 weeks Prognosis: Fair Aware of Diagnosis: Patient, Family Aware of Prognosis: Patient, Family - Transfer Medications Home Medications: Aspirin [Lo-Dose Aspirin EC] 81 mg PO DAILY 08/02/17 [History] Calcium Carbonate [Calcium] 1,200 mg PO DAILY 08/02/17 [History] Cetirizine HCl 10 mg PO DAILY 08/02/17 [History] Finasteride [Proscar] 5 mg PO DAILY 08/02/17 [History] Lutein Extract/Zeaxanthin Ext [Lutein 15 mg Softgel] 1 cap PO DAILY 08/02/17 [ History] Simvastatin [Zocor] 10 mg PO DAILY 08/02/17 [History] Tamsulosin [Flomax] 0.4 mg PO DAILY 08/02/17 [History] Apixaban [Eliquis] 5 mg PO BID #60 tablet 08/10/17 [Rx] Diltiazem CD (24hr) [Cardizem CD] 180 mg PO DAILY #30 cap.er.24h 08/10/17 [Rx] Lactobacillus [Culturelle] 1 each PO BID #60 cap.sprink 08/10/17 [Rx] Ferrous Sulfate [Iron] 325 mg PO DAILY 09/18/17 [History] Allergies/Adverse Reactions: 3 Allergy/AdvReac Type Severity Reaction Status Date / Time No Known Allergies Allergy Verified 08/01/17 23:21 - Respiratory Orders Smoking Cessation: Smoking cessation has been advised. For more information, call the [place] Tobacco Quit Line at 6-528-EXKH-NOW. - Advance Directives Code Status: DNR-Arrest/Don't Intubate - Mobility Orders Ambulate - Rehabiliation Orders Rehab Potential: Fair Rehab Orders: Sternal Precautions, ROM Exercises, Evaluation for Physical Therapy, Evaluation for Occupational Therapy - Diet Orders Cardiac CERTIFICATION: I certify that the transfer of the above named patient to an Extended Care Facility is necessary for the continuing treatment of the diagnosis listed. The above information is true and accurate reflection of patient's current condition. Confidential - Redisclosure prohibited without a patient's written consent.
[2017-09-28] MEDS ORDERED: risperiDONE 0.25 MG TABLET PO SCH (21:00)
[2017-09-29] MEDS: Ampicillin 2 GM in 0.9 % Sodium Chloride Mini Bag 100 ML IVPB SCH ×3 (03:32→11:43)
[2017-09-29 08:06] VITALS: BP 139/72
[2017-09-29] MEDS: Lactobacillus 1 EACH CAP.SPRINK PO SCH (09:27)
[2017-09-29] MEDS: Diltiazem CD (24hr) 180 MG CAPSULE PO SCH (09:27)
[2017-09-29] MEDS: Apixaban 5 MG TABLET PO SCH (09:27)
[2017-09-29] MEDS: Aspirin Enteric Coated 81 MG Tablet PO SCH (09:27)
--- NOTE | 2017-09-29 12:00 | Infectious Disease Progress No ---
Date of Encounter: 09/29/17 Time of Encounter: 10:00 - Assessment and Plan (1) Sepsis Status: Acute Patient had 2 SIRS criteria with fever and tachycardia Resolved at this time Source is bacteremia No evidence of end organ damage Blood cultures positive for Enterococcus faecalis Repeat blood cultures are no growth Urine culture positive for Veronica glabrata Continue ampicillin 2 g every 4 hours, transition to ampicillin 12g IV continuous daily at d/c for 4 weeks Discontinued Rocephin Qualifiers: Sepsis type: sepsis due to unspecified organism Qualified Code(s): A41.9 - Sepsis, unspecified organism (2) Bacteremia Status: Acute Causative organism enterococcus faecalis Sources this time is unclear but 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 Even though the patient's LUIGI was negative there is still concern for endocarditis given patient's quick recurrence of infection once antibiotics were discontinued Blood cultures drawn on September 17 2 sets are positive Repeat blood cultures drawn September 22 are NGTD Patient recently discontinued a course of 6 weeks antibiotics for bacteremia with ampicillin Continue ampicillin 2 g every 4 hours Transition to ampicillin 12 g via continuous infusion every 24 hours at discharge Discontinue Rocephin 2 g every 12 hours Patient has 2 minor modified Nur criteria TTE nondiagnostic for endocarditis, LUIGI showed no evidence of endocarditis Patient does have artificial knee joints however there is no sign of septic arthritis CT Abd/pelvis was negative for any source of infection Continue to monitor renal function and dose adjust antibiotics based on creatinine clearance Creatinine clearance 62 Patient will require weekly CBC, BUN/creatinine Follow-up with infectious disease as outpatient in 2 weeks (3) UTI (urinary tract infection) Status: Acute Urine culture positive for Veronica glabrata. Likely contaminate Patient asymptomatic Will hold off on treating at this time Qualifiers: Urinary tract infection type: site unspecified Hematuria presence: with hematuria Qualified Code(s): N39.0 - Urinary tract infection, site not specified; R31.9 - Hematuria, unspecified; R31.9 - Hematuria, unspecified (4) Altered mental status Status: Resolved Likely delirium in the setting of hospitalization and infection Further management per primary Qualifiers: Altered mental status type: disorientation Qualified Code(s): R41.0 - Disorientation, unspecified (5) Pacemaker Status: Acute Patient has a pacemaker present with recurrent bacteremia. Repeat blood culture pending TTE nondiagnostic, LUIGI showed no evidence of vegetation however suspicion remains for infective endocarditis (6) Atrial fibrillation with RVR Status: Acute (7) Status post transcatheter aortic valve replacement Status: Acute (8) History of knee replacement Status: Acute Qualifiers: Laterality: bilateral Qualified Code(s): Z96.653 - Presence of artificial knee joint, bilateral - Subjective Interval history: Pt seen and examined. His and daughter are at bedside and states the patient has given up stating he was "done" with treatments. He had refused many of his medications per RN. Patient himself does not have any complaints of pain , fever, shortness of breath. Infect Dis PN-Objective Data - Labs CBC & Chem 7: 09/24/17 11:19 09/23/17 04:59 Cultures: Cultures 09/22/17 08:33 Blood Culture - Final Peripheral Venipuncture No growth. 09/22/17 08:29 Blood Culture - Final Peripheral Venipuncture No growth. Exam - Constitutional Vitals: Temp Pulse Resp BP Pulse Ox 98.0 F 78 16 139/72 98 09/29/17 08:05 09/29/17 08:05 09/29/17 08:05 09/29/17 08:05 09/29/17 08:05 General appearance: disheveled, no acute distress - Head Head exam: Present: atraumatic, normocephalic - Respiratory Respiratory exam: Present: decreased breath sounds. Absent: wheezes, tachypnea - Cardiovascular Cardiovascular exam: Present: RRR. Absent: irregular rhythm, systolic murmur, tachycardia - GI/Abdominal GI/Abdominal exam: Present: normal bowel sounds, soft. Absent: tenderness - VTE Documentation of Mechanical Device: Intermittent pneumatic compression device Consult Discharge Plan - Plan Referrals: Miguel Ayala MD [Primary Care Provider] - (Hospice will take care of appt. Thank you) Prescriptions: risperiDONE [Risperidone] 0.5 mg PO HS 5 Days #5 tablet - Attending Attestation patient was discharged to hospice before I can even see him
--- NOTE | 2017-09-29 12:07 | Physician Discharge Referral ---
Home Health/Hosp Referral Info Transfer to: Hospice Attending Provider: Amalia Richardson CNP Provider in Charge Post Discharge: Synchronizer - Diagnosis (1) Acute encephalopathy Status: Acute (2) Bacteremia Status: Acute (3) Enterococcus faecalis infection Status: Acute (4) Sepsis Status: Acute (5) Urinary tract infection due to Enterococcus Status: Acute (6) Weakness Status: Acute (7) A-fib Status: Chronic (8) S/P aortic valve replacement Status: Chronic (9) HTN (hypertension) Status: Chronic - Respiratory Orders None Smoking Cessation: Smoking cessation has been advised. For more information, call the [place] Tobacco Quit Line at 4-108-ALTB-NOW. - Diet/Nutrition Diet/Nutrition Orders: Regular - Activity Activity Orders: Up ad chris - Services Needed Following services are medically necessary services: Nursing, Home Health Aide - Transfer Medications Prescriptions: risperiDONE [Risperidone] 0.5 mg PO HS 5 Days #5 tablet Home Medications: Aspirin [Lo-Dose Aspirin EC] 81 mg PO DAILY 08/02/17 [History] Calcium Carbonate [Calcium] 1,200 mg PO DAILY 08/02/17 [History] Cetirizine HCl 10 mg PO DAILY 08/02/17 [History] Finasteride [Proscar] 5 mg PO DAILY 08/02/17 [History] Lutein Extract/Zeaxanthin Ext [Lutein 15 mg Softgel] 1 cap PO DAILY 08/02/17 [ History] Simvastatin [Zocor] 10 mg PO DAILY 08/02/17 [History] Tamsulosin [Flomax] 0.4 mg PO DAILY 08/02/17 [History] Apixaban [Eliquis] 5 mg PO BID #60 tablet 08/10/17 [Rx] Diltiazem CD (24hr) [Cardizem CD] 180 mg PO DAILY #30 cap.er.24h 08/10/17 [Rx] Lactobacillus [Culturelle] 1 each PO BID #60 cap.sprink 08/10/17 [Rx] Ferrous Sulfate [Iron] 325 mg PO DAILY 09/18/17 [History] risperiDONE [Risperidone] 0.5 mg PO HS 5 Days #5 tablet 09/28/17 [Rx] Allergies/Adverse Reactions: 3 Allergy/AdvReac Type Severity Reaction Status Date / Time No Known Allergies Allergy Verified 08/01/17 23:21 Certification: Further, I certify that my clinical findings support that this patient is homebound (i.e. absences from home require considerable and taxing effort and are for medical reasons or caodaism services or infrequently or short duration when for other reasons) because: Homebound Reason: Patient requires assistance of a person or device to safely leave home, Leaving home requires considerable and taxing effort due to condition Attestation: My signature below is to certify that this patient is under my care and that I, or nurse practitioner, or a physician's library services assistant working with me, has a face-to -face encounter with this patient.
--- NOTE | 2017-09-29 15:00 | Event Note ---
Date of Encounter: 09/29/17 Time of Encounter: 11:00 I was notified by nursing staff that patient and family have decided to change CODE STATUS to DNR CC and wish to be discharged home with hospice. Patient seen briefly at bedside. Discussed with and daughter and patient and all are in agreement to changing CODE STATUS to DNR CC with plan to discharge home with [facility]. Case discussed with RN and social work assistant; hospice continuity of care completed.
== END 2017-09-29 13:25 | disposition hospice, home (50) | DRG 871 ==
LOC: 3ANU 21:48 → EMEROO 21:48 → SUATTDRO 09-18 01:43 → 3ANU 09-18 02:02 → SUATTDRO 09-19 10:09
PROVIDERS: ADMIT Internal Medicine; ATTEND Internal Medicine